=== PATIENT | male | born 1965 | race Two or more races ===

== ENCOUNTER → 2017-01-07 10:03 | Emergency (ER) | payer OTHER ==
[~2017-01-07 10:03] MED LIST: Iodixanol 320 (CONTRAST) 100 ML SDV IV ONE; Iohexol 300* (CONTRAST) 10 ML SDV IV ONE; Morphine INJ* 4 MG/ML 1 ML SYRINGE IV ONE; NS 0.9% 1000 ML* 1,000 ML IV ONE; Ondansetron INJ* 2 MG/ML VIAL IV ONE; Ondansetron ODT TAB* 4 MG PO ONE
[2017-01-07 11:14] LABS: Hematocrit 42 % (42-52); Hemoglobin 13.8 g/dl (14.0-18.0); Mean Corpuscular HGB Conc 33 g/dl (31-36); Mean Corpuscular Hemoglobin 27 pg (27-31); Mean Corpuscular Volume 83 fL (80-94); Mean Platelet Volume 9 um3 (7.4-10.4); Red Blood Count 5.05 10^6/ul (4.0-5.4); Red Cell Distribution Width 15 % (10.5-15); White Blood Count 7.7 10^3/ul (3.5-10.8)
[2017-01-07 11:35] LABS: Albumin 4.3 g/dL (3.2-5.2); BUN/Creatinine Ratio 19.3 (8-20); C Reactive Protein 5.37 mg/L (< 5.00); Calcium 9.5 mg/dL (8.6-10.3); EGFR African American 125.1 (>60); EGFR Non-African American 97.3 (>60); Globulin 3.3 g/dL (2-4); Potassium 4.1 mmol/L (3.5-5.0); Total Bilirubin 0.4 mg/dL (0.2-1.0); Total Protein 7.6 g/dL (6.4-8.9)
--- NOTE | 2017-01-07 13:46 | RAD ---
INDICATION: Breast cancer with metastasis. Abdominal pain. Vomiting. COMPARISON: Bone scan November 28, 2016; PET scan May 04, 2016; CTA chest September 30, 2015 TECHNIQUE: Axial source images were obtained from the hemidiaphragms to the symphysis pubis following administration of oral and intravenous contrast. 134 mL Visipaque 320 was utilized. Coronal and sagittal reconstructed images were acquired. Lung bases: There is subpleural flat in the left lung base with mildly nodular parenchymal parenchymal change. This likely related to scarring. This appears essentially unchanged. Liver: The liver is normal in size. There are no masses. There is no ductal dilatation. Gallbladder: There are no calcified gallstones. There is no evidence of wall thickening or pericholecystic fluid. Spleen: The spleen is normal in size. There are no masses. Pancreas: There is no focal pancreatic mass or ductal dilatation. Adrenal glands: There is no evidence of adrenal mass. Kidneys: The kidneys are normal in size and position. There are prompt nephrograms and there is prompt excretion bilaterally. There are no renal parenchymal masses. There is no evidence of nephrolithiasis. Adenopathy: There is no evidence of adenopathy by size criteria. Fluid collections: There are no free or localized fluid collections. Vessels:There are no significant atherosclerotic changes involving the aorta. There is no focal aneurysm. The iliac vessels are normal in caliber. The IVC appears normal. GI tract: There are no acute CT bowel findings. There is no obstruction. The stomach and small bowel appear normal. The lower GI tract is remarkable for scattered diverticula. There is no CT evidence of acute diverticulitis. Pelvic organs: The prostate and seminal vesicles appear normal Bladder: There are no bladder masses. Abdominal and pelvic soft tissues: There is a small fat-containing periumbilical hernia appearing unchanged. Osseous structures: There is a subtle right ninth rib lesion appearing more conspicuous on a bone scan which is a more sensitive means to evaluate for bony metastasis. There is left femoral rodding. Other: None IMPRESSION: NO ACUTE CT FINDINGS. NO MASS OR INFLAMMATORY CHANGE. NO BOWEL OBSTRUCTION.
[2017-01-07 14:22] LABS: Urine Bilirubin Negative (Negative); Urine Glucose Negative (Negative); Urine Nitrite Negative (Negative)
[2017-01-07 15:09] VITALS: BP 153/98
--- NOTE | 2017-01-08 23:02 | ED ---
Francisco Estevez SooYoung, scribed for Ulisses Shen MD on 01/07/17 at 1059 . Abdominal Pain/Male - HPI Summary HPI Summary: A 51 y/o M presents to ED with c/o diffuse epigastric abd pain ongoing for past two weeks. Pt saw Dr. Pineda, his PCP, today CATALYST UNIT OPERATOR who told him to go to the ED for further workup and U/S. Associated sx: vomiting. Denies diarrhea, fever. His last BM was this AM. No pert PMHx for cholelithiasis or pancreatitis. SHx: appy in 1987. PMHx: HTN, high cholesterol, DM, cardiac issues, multiple CA, has had radiation and chemo in the past. Pt sees Dr. Queen, oncologist. - History of Current Complaint Chief Complaint: EDAbdPain Stated Complaint: ABD PAIN Time Seen by Provider: 01/07/17 10:38 Hx Obtained From: Patient Onset/Duration: Lasting Weeks - two weeks, Still Present Timing: Intermittent Severity Currently: Moderate Pain Intensity: 7 Pain Scale Used: 0-10 Numeric Location: Diffuse, Epigastric Associated Signs And Symptoms: Positive: Vomiting. Negative: Fever, Diarrhea - Allergies/Home Medications Allergies/Adverse Reactions: Allergies Allergy/AdvReac Type Severity Reaction Status Date / Time seasonal Allergy Mild See Comment Uncoded 05/21/16 15:38 PMH/Surg Hx/FS Hx/Imm Hx Previously Healthy: No Endocrine/Hematology History: Reports: Hx Diabetes Denies: Hx Anticoagulant Therapy, Hx Thyroid Disease Cardiovascular History: Reports: Hx Angina, Hx Coronary Artery Disease, Hx Hypercholesterolemia, Hx Hypertension, Hx Myocardial Infarction, Hx Syncope, Other Cardiovascular Problems/Disorders - 2 cardiac stents Denies: Hx Pacemaker/ICD, Hx Valvular Heart Disease Respiratory History: Reports: Hx Asthma, Hx Pulmonary Embolism, Hx Seasonal Allergies, Hx Sleep Apnea - maybe Denies: Hx Chronic Obstructive Pulmonary Disease (COPD) GI History: Reports: Hx Gastroesophageal Reflux Disease, Other GI Disorders - umbilical hernia History: Denies: Hx Renal Disease Musculoskeletal History: Reports: Hx Arthritis - SPINE, Hx Back Problems, Hx Orthopedic Injury - (left) knee, (right) ring finger Denies: Hx Scoliosis Sensory History: Reports: Hx Contacts or Glasses Denies: Hx Cataracts, Hx Glaucoma, Hx Hearing Aid Opthamlomology History: Reports: Hx Contacts or Glasses Denies: Hx Cataracts, Hx Glaucoma Neurological History: Denies: Hx Dementia, Hx Headaches, Hx Seizures, Other Neuro Impairments/ Disorders Psychiatric History: Reports: Hx Anxiety - A/D OK ON MEDS, Hx Depression Denies: Hx Panic Disorder, Hx Substance Abuse - Cancer History Cancer Type, Location and Year: LT BREAST CANCER WITH LUMPECTOMY Hx Chemotherapy: Yes - 2013 Hx Radiation Therapy: Yes - 2013 - Surgical History Surgery Procedure, Year, and Place: 1988 APPY [facility], 2001 L KNEE RECONST [facility] , 2008 L BREAST CANCER LUMPECTOMY [facility] [place], 2007 2 CARDIAC STENTS, 2012 breast CA Hx Anesthesia Reactions: Yes - N/V Infectious Disease History: No Infectious Disease History: Denies: Hx Hepatitis, Hx Human Immunodeficiency Virus (HIV), Hx of Known/ Suspected MRSA, Hx Shingles, Hx Tuberculosis, Hx Known/Suspected VRE, Hx Known/ Suspected VRSA, History Other Infectious Disease, Traveled Outside the in Last 30 Days - Family History Known Family History: Positive: Cardiac Disease - Social History Occupation: Employed Part-time Lives: With Family Alcohol Use: None Hx Substance Use: No Substance Use Type: Reports: None Hx Tobacco Use: Yes Smoking Status (MU): Former Smoker Type: Cigarettes Amount Used/How Often: 2 PPD Length of Time of Smoking/Using Tobacco: on and off for 3 years Have You Smoked in the Last Year: No Review of Systems Negative: Fever, Chills Negative: Erythema Negative: Sore Throat Negative: Chest Pain Negative: Shortness Of Breath, Cough Positive: Abdominal Pain, Vomiting. Negative: Diarrhea, Nausea Negative: dysuria, hematuria Negative: Myalgia, Edema Negative: Rash Neurological: Other - neg: dizziness All Other Systems Reviewed And Are Negative: Yes Physical Exam - Summary Physical Exam Summary: Constitutional: Well-developed, Well-nourished, Alert. (-) Distressed Skin: Warm, Dry HENT: Normocephalic; Atraumatic Eyes: Conjunctiva normal Neck: Musculoskeletal ROM normal neck. (-) JVD, (-) Stridor, (-) Tracheal deviation Cardio: Rhythm regular, rate normal, Heart sounds normal; Intact distal pulses; The pedal pulses are 2+ and symmetric. Radial pulses are 2+ and symmetric. (-) Murmur Pulmonary/Chest wall: Effort normal. (-) Respiratory distress, (-) Wheezes, (-) Rales Abd: Soft, (-) Distension, LUQ AND LLQ TENDERNESS Musculoskeletal: (-) Edema Lymph: (-) Cervical adenopathy Neuro: Alert, Oriented x3 Psych: Mood and affect Normal Triage Information Reviewed: Yes Vital Signs On Initial Exam: Initial Vitals Temp Pulse Resp BP Pulse Ox 97.7 F 83 17 151/91 99 01/07/17 10:06 01/07/17 10:06 01/07/17 10:06 01/07/17 10:06 01/07/17 10:06 Vital Signs Reviewed: Yes - Preston Coma Scale Coma Scale Total: 15 Diagnostics - Vital Signs Vital Signs Temp Pulse Resp BP Pulse Ox 01/07/17 10:41 98.6 F 71 16 138/97 97 01/07/17 10:06 97.7 F 83 17 151/91 99 - Laboratory Lab Results: Lab Results 01/07/17 01/07/17 01/07/17 Range/Units 10:40 10:40 10:40 WBC 7.7 (3.5-10.8) 10^3/ul RBC 5.05 (4.0-5.4) 10^6/ul Hgb 13.8 L (14.0-18.0) g/dl Hct 42 (42-52) % MCV 83 (80-94) fL MCH 27 (27-31) pg MCHC 33 (31-36) g/dl RDW 15 (10.5-15) % Plt Count 207 (150-450) 10^3/ul MPV 9 (7.4-10.4) um3 Neut % (Auto) 68.8 (38-83) % Lymph % (Auto) 20.7 L (25-47) % Price % (Auto) 7.9 (1-9) % Eos % (Auto) 1.9 (0-6) % Baso % (Auto) 0.7 (0-2) % Absolute Neuts (auto) 5.3 (1.5-7.7) 10^3/ul Absolute Lymphs (auto) 1.6 (1.0-4.8) 10^3/ul Absolute Monos (auto) 0.6 (0-0.8) 10^3/ul Absolute Eos (auto) 0.1 (0-0.6) 10^3/ul Absolute Basos (auto) 0.1 (0-0.2) 10^3/ul Absolute Nucleated RBC 0.01 10^3/ul Nucleated RBC % 0.1 Sodium 135 (133-145) mmol/L Potassium 4.1 (3.5-5.0) mmol/L Chloride 103 (101-111) mmol/L Carbon Dioxide 24 (22-32) mmol/L Anion Gap 8 (2-11) mmol/L BUN 16 (6-24) mg/dL Creatinine 0.83 (0.67-1.17) mg/dL Est GFR ( Amer) 125.1 (>60) Est GFR (Non-Af Amer) 97.3 (>60) BUN/Creatinine Ratio 19.3 (8-20) Glucose 138 H (70-100) mg/dL Lactic Acid 2.5 H* (0.5-2.0) mmol/L Calcium 9.5 (8.6-10.3) mg/dL Total Bilirubin 0.40 (0.2-1.0) mg/dL AST 19 (13-39) U/L ALT 23 (7-52) U/L Alkaline Phosphatase 87 (34-104) U/L C-Reactive Protein 5.37 H (< 5.00) mg/L Total Protein 7.6 (6.4-8.9) g/dL Albumin 4.3 (3.2-5.2) g/dL Globulin 3.3 (2-4) g/dL Albumin/Globulin Ratio 1.3 (1-3) Lipase 31 (11.0-82.0) U/L CA 27-29 (3.5-38.6) U/mL Urine Color Urine Appearance Urine pH (5-9) Ur Specific [place] (1.010-1.030) Urine Protein (Negative) Urine Ketones (Negative) Urine Blood (Negative) Urine Nitrate (Negative) Urine Bilirubin (Negative) Urine Urobilinogen (Negative) Ur Leukocyte Esterase (Negative) Urine Glucose (Negative) 01/07/17 01/07/17 Range/Units 10:40 14:02 WBC (3.5-10.8) 10^3/ul RBC (4.0-5.4) 10^6/ul Hgb (14.0-18.0) g/dl Hct (42-52) % MCV (80-94) fL MCH (27-31) pg MCHC (31-36) g/dl RDW (10.5-15) % Plt Count (150-450) 10^3/ul MPV (7.4-10.4) um3 Neut % (Auto) (38-83) % Lymph % (Auto) (25-47) % Price % (Auto) (1-9) % Eos % (Auto) (0-6) % Baso % (Auto) (0-2) % Absolute Neuts (auto) (1.5-7.7) 10^3/ul Absolute Lymphs (auto) (1.0-4.8) 10^3/ul Absolute Monos (auto) (0-0.8) 10^3/ul Absolute Eos (auto) (0-0.6) 10^3/ul Absolute Basos (auto) (0-0.2) 10^3/ul Absolute Nucleated RBC 10^3/ul Nucleated RBC % Sodium (133-145) mmol/L Potassium (3.5-5.0) mmol/L Chloride (101-111) mmol/L Carbon Dioxide (22-32) mmol/L Anion Gap (2-11) mmol/L BUN (6-24) mg/dL Creatinine (0.67-1.17) mg/dL Est GFR ( Amer) (>60) Est GFR (Non-Af Amer) (>60) BUN/Creatinine Ratio (8-20) Glucose (70-100) mg/dL Lactic Acid (0.5-2.0) mmol/L Calcium (8.6-10.3) mg/dL Total Bilirubin (0.2-1.0) mg/dL AST (13-39) U/L ALT (7-52) U/L Alkaline Phosphatase (34-104) U/L C-Reactive Protein (< 5.00) mg/L Total Protein (6.4-8.9) g/dL Albumin (3.2-5.2) g/dL Globulin (2-4) g/dL Albumin/Globulin Ratio (1-3) Lipase (11.0-82.0) U/L CA 27-29 19.54 (3.5-38.6) U/mL Urine Color Straw Urine Appearance Clear Urine pH 6.0 (5-9) Ur Specific [place] 1.005 L (1.010-1.030) Urine Protein Negative (Negative) Urine Ketones Negative (Negative) Urine Blood Negative (Negative) Urine Nitrate Negative (Negative) Urine Bilirubin Negative (Negative) Urine Urobilinogen Negative (Negative) Ur Leukocyte Esterase Negative (Negative) Urine Glucose Negative (Negative) Result Diagrams: 01/07/17 10:40 01/07/17 10:40 Lab Statement: Any lab studies that have been ordered have been reviewed, and results considered in the medical decision making process. - CT A/P CT CT Interpretation: No Acute Changes - IMPRESSION: NO ACUTE CT FINDINGS. NO MASS OR INFLAMMATORY CHANGE. NO BOWEL OBSTRUCTION. [address] Interpretation Completed By: Radiologist Re-Evaluation - Re-Evaluation 1 Re-Evaluation Time: 14:26 Change: Improved Comment: Repeated abd exam, pt is experiencing mild LUQ. Tolerated oral contrast. Abdominal Pain Fem Course/Dx - Course Course Of Treatment: Pt is a 51 y/o M presenting with c/o diffuse epigastric abd pain ongoing for past two weeks. Pt saw Dr. Pineda, his PCP, today CATALYST UNIT OPERATOR who told him to go to the ED for further workup and U/S. Associated sx: vomiting. Denies diarrhea, fever. His last BM was this AM. No pert PMHx for cholelithiasis or pancreatitis. SHx: appy in 1987. PMHx: HTN, high cholesterol, DM, cardiac issues, multiple CA, has had radiation and chemo in the past. Pt sees Dr. Queen, oncologist. Pt given fluids, Zofran and Morphine in ED. Lab results show elevated glucose and CRP; lactic acid is 2.5. A/P CT revealed no acute findings. UA was nml except specific gravity of 1.005. Upon reeval, pt has mild LUQ, he tolerated oral contrast. Will D/C home with Zofran. - Diagnoses Differential Diagnosis/HQI/PQRI: Diverticulitis, Pancreatitis Provider Diagnoses: Vomiting Discharge - Discharge Plan Condition: Stable Disposition: HOME Prescriptions: Ondansetron ODT TAB* [Zofran 4 MG Odt TAB*] 4 mg PO Q8H PRN #8 tab.odt PRN Reason: Nausea/Vomiting Patient Education Materials: Acute Nausea and Vomiting (ED), Ondansetron (By mouth) Referrals: Anaya Pineda MD [Primary Care Provider] - () Sheng Queen MD [Medical Doctor] - 3 Days (Follow up in the next few days.) Karlos Bai MD [Medical Doctor] - (Follow up in the next few days.) Additional Instructions: Follow up with both Dr. Queen, oncology, and Dr. Bai, manufacturing plant technician, within the next few days. Return to the emergency department for changing or worsening or persistent symptoms. The documentation as recorded by the Francisco sanchez SooYoung accurately reflects the service I personally performed and the decisions made by me, Ulisses Shen MD.
== END | disposition home or self-care (01) ==
LOC: ED 10:03
DX: R11.10 Vomiting, unspecified (principal)
CPT/HCPCS: 36415; 74177; 80053; 81003; 83605; 83690; 85025; 86140; 86300; 99282; A9270-GY; J2270; J2405; Q9967

== ENCOUNTER 2018-03-03 06:25 | Day surgery (SDC) | payer OTHER ==
[~2018-03-03 06:25] MED LIST changes: +Buffered Lidocaine 0.9% SYRIN* 5 ML/SYR SYRINGE INTRADERM ONE; -Iodixanol 320 (CONTRAST) 100 ML SDV IV ONE; -Iohexol 300* (CONTRAST) 10 ML SDV IV ONE; -Morphine INJ* 4 MG/ML 1 ML SYRINGE IV ONE; -NS 0.9% 1000 ML* 1,000 ML IV ONE; -Ondansetron INJ* 2 MG/ML VIAL IV ONE; -Ondansetron ODT TAB* 4 MG PO ONE
[2018-03-03] MEDS ORDERED: ceFAZolin 2 GM PREMIX (*) 2 GM/50 ML BAG IVPB ONE (06:33)
[2018-03-03] MEDS ORDERED: fentaNYL* 50 MCG/ML 2 ML VIAL (100 MCG VIAL) ONE (07:16)
[2018-03-03] MEDS ORDERED: Lidocaine 1% INJ* 10 MG/ML 30 ML SDV ONE (07:16)
[2018-03-03] MEDS ORDERED: Midazolam* 1 MG/ML 5 ML VIAL (5 MG) ONE (07:16)
[2018-03-03] MEDS ORDERED: Ondansetron INJ* 2 MG/ML VIAL ONE (07:42)
[2018-03-03] MEDS ORDERED: Propofol* 10 MG/ML 20 ML BTL IV PUSH ONE (07:42)
[2018-03-03] MEDS ORDERED: Naloxone* 0.4 MG/ML 1 ML VIAL IV PRN (08:14)
--- NOTE | 2018-03-03 09:07 | BRIEFOPN ---
Brief Operative Note - Surgery Procedures: Procedures OPERATIVE REPORT PRE-OP: Metastatic breast cancer POST-OP: Same PROCEDURE: Insertion of 8F left chest wall Powerport SURGEON: MD Melia ANESTHESIA:Local with MAC Dr. Orta ASST:none IVF:min EBL:min SPECIMEN:none DRAIN: none WOUND CLASS: COMPLICATIONS: none TO PACU
[2018-03-03] MEDS ORDERED: oxyCODONE/Acetamin 5/325 MG* TAB PO PRN (09:08)
--- NOTE | 2018-03-03 09:44 | RAD ---
HISTORY: s/p port COMPARISONS: September 30, 2015 VIEWS: 1: frontal portable view of the chest at 8:55 AM FINDINGS: LINES AND TUBES: A left-sided chest port is noted with the tip overlying the superior vena cava. CARDIOMEDIASTINAL SILHOUETTE: The cardiomediastinal silhouette is normal for portable technique. PLEURA: The costophrenic angles are sharp. No pleural abnormalities are noted. There is no appreciable pneumothorax. LUNG PARENCHYMA: The lungs are clear. ABDOMEN: The upper abdomen is clear. There is no subphrenic gas. BONES AND SOFT TISSUES: No bone or soft tissue abnormalities are noted. IMPRESSION: LINES AND TUBES ABOVE. NO ACTIVE CARDIOPULMONARY DISEASE.
[2018-03-03 09:46] VITALS: BP 150/104
--- NOTE | 2018-03-03 09:48 | RAD ---
INDICATION: chest port placement COMPARISONS: None relevant TECHNIQUE: Fluoroscopy was provided for a vascular access procedure. Total fluoroscopy time is: 101 seconds FINDINGS: Spot images demonstrate a left-sided chest port from a subclavian approach with the tip overlying the superior vena cava. IMPRESSION: FLUOROSCOPY WAS PROVIDED FOR A VASCULAR ACCESS PROCEDURE CPT II Codes: G9500
--- NOTE | 2018-03-03 12:51 | OP ---
CC: [facility]; Dr. Sheng Queen OPERATIVE REPORT: DATE OF OPERATION: 03/03/18 DATE OF : 63 SURGEON: Jerad Cárdenas MD CURING SUPERVISOR: None. ANESTHESIOLOGIST: Dr. Orta. ANESTHESIA: Local with monitored anesthesia care. PRE-OP DIAGNOSIS: Metastatic breast cancer. POST-OP DIAGNOSIS: Metastatic breast cancer. OPERATIVE PROCEDURE: Insertion of an 8-S[place] left chest wall PowerPort. ESTIMATED BLOOD LOSS: Minimal. WOUND CLASSIFICATION: I. DRAINS: None. COMPLICATIONS: None. SPECIMENS: None. DESCRIPTION OF PROCEDURE: Written informed consent was obtained, the left chest was marked with inde lible ink and preoperative antibiotics were administered. The patient was taken to the operating juan m and placed in the supine position. Sequential compression devices and a warming blanket were applie d. The left and right chest and neck were prepped and draped in the usual sterile fashion. Time-out verification was completed. The patient was placed in Trendelenburg position and 1% lidocaine was used to infiltrate the chest wa ll, the left mid and infraclavicular area. Using an 18-gauge Cook needle, the catheter was passed on the clavicle and the subclavian vein was pu nctured on the first pass and the guidewire was inserted without difficulty and confirmed to be in th e superior vena cava on fluoroscopy. Next, additional lidocaine was infiltrated inferior to the puncture site and a transverse incision wa s made. A subcutaneous pocket was made inferior to this, large enough to permit placement of the por t. A catheter was then tunneled from the pocket to the puncture site and using the sheath, peel away sys tem, the catheter was inserted into the superior vena cava at the junction of the right atrium. The catheter was then cut to the appropriate length and attached to the port, which was placed in the sub cutaneous pocket. It flushed well and withdrew blood well and was flushed with heparin. The cathete r was secured to the underlying fascia within the pocket with 2 separate 3-0 Prolene sutures. Hemostasis was assured and the both incisions were closed with 3-0 and 4-0 Vicryl suture. Steri-Stri ps and a sterile occlusive Tegaderm dressing were applied. The patient tolerated the procedure well and was taken to the recovery room in stable condition. Postprocedural chest x-ray showed the catheter to be in good position without evidence of pneumothora x or other acute abnormality. [id number]/[facility] #: [id number]
== END 2018-03-03 10:10 | disposition home or self-care (01) ==
LOC: OR 06:25
PROVIDERS: ATTEND Surgery
DX: C79.51 Secondary malignant neoplasm of bone (principal); C50.929 Malignant neoplasm of unspecified site of unspecified male breast; Z87.891 Personal history of nicotine dependence; Z86.711 Personal history of pulmonary embolism; E11.9 Type 2 diabetes mellitus without complications; I25.10 Atherosclerotic heart disease of native coronary artery without angina pectoris; Z79.84 Long term (current) use of oral hypoglycemic drugs; I10 Essential (primary) hypertension; K21.9 Gastro-esophageal reflux disease without esophagitis; E78.5 Hyperlipidemia, unspecified
CPT/HCPCS: 71045; 76000; C1788; J0690; J1642; J2250; J2405; J2704; J3010

== ENCOUNTER 2018-04-09 11:46 | Emergency (ER) | payer OTHER ==
--- NOTE | 2018-04-09 13:21 | RAD ---
Indication: Chest pain. Coronary artery disease. History of breast carcinoma. Comparison: March 03, 2018 Technique: Upright AP 1310 hours Report: No focal pulmonary lesion, compelling alveolar consolidation, pleural effusion, pneumothorax. Negative for cardiomegaly. Unremarkable central pulmonary vasculature. Tip of LEFT chest port at level of superior vena cava RIGHT atrial junction without change. IMPRESSION: #. No evidence for acute intrathoracic disease.
[2018-04-09] MEDS ORDERED: NS 0.9% 1000 ML* 1,000 ML IV ONE (13:37)
[2018-04-09] MEDS ORDERED: Nitroglycerin TAB 0.4 MG* 0.4 MG TAB SL ONE (13:39)
[2018-04-09] MEDS ORDERED: Aspirin 81 mg CHEW TAB* 81 MG TAB.CHEW PO ONE (13:39)
[2018-04-09 13:42] LABS: ABS Basophils 0.1 10^3/ul (0-0.2); ABS Eosinophils 0.1 10^3/ul (0-0.6); ABS Lymphocytes 1.3 10^3/ul (1.0-4.8); ABS Monocytes 0.3 10^3/ul (0-0.8); ABS Neutrophils 2.7 10^3/ul (1.5-7.7); ABS Nucleated RBC 0 10^3/ul; Eosinophil % 2.3 % (0-6); Hematocrit 38 % (42-52); Hemoglobin 12.6 g/dl (14.0-18.0); Lymphocyte % 29.9 % (25-47); Mean Corpuscular HGB Conc 34 g/dl (31-36); Mean Corpuscular Hemoglobin 27 pg (27-31); Mean Corpuscular Volume 82 fL (80-94); Mean Platelet Volume 8.4 um3 (7.4-10.4); Nucleated Red Blood Cells % 0.2; Platelet Count 223 10^3/ul (150-450); Red Blood Count 4.61 10^6/ul (4.00-5.40); Red Cell Distribution Width 17 % (10.5-15); White Blood Count 4.5 10^3/ul (3.5-10.8)
[2018-04-09 13:49] LABS: INR 0.91 (0.77-1.02)
[2018-04-09] MEDS ORDERED: Morphine VIAL* 10 MG/ML 1 ML VIAL IV ONE (14:01)
[2018-04-09 14:09] LABS: EGFR Non-African American 106.9 (>60)
--- NOTE | 2018-04-09 14:31 | ED ---
HPI Chest Pain - HPI Summary HPI Summary: This patient is a 53 year old M presenting to [facility] accompanied by his and son with a chief complaint of central 7/10 chest pain and tightness for the past few days. PMHx PE (2009), breast CA metastatic to left femur, HLD, HTN, and DM. Pt endorses similar sx to last PE. Pt has been taking nitrostat which alleviated sx for a little while, but sx return fairly quickly. PMHx HTN, HLD, DM. deep breath mildly aggravates sx. Pt denies Rx blood thinners. Pt also endorses PMHx cardiac stenosis 50 and 60% blockage in 2 different branches observed in a cardiac catheterization less than a year ago. PMHx breast CA metastatic to left femur with 2x [address] surgeries[address] Dr[address] Queen is pts oncologist, and he is currently receiving chemotherapy, and has had radiation tx in the past. - History of Current Complaint Chief Complaint: EDChestPainROMI Time Seen by Provider: 04/09/18 12:49 Hx Obtained From: Patient Onset/Duration: Started Days Ago, Still Present Timing: Constant Initial Severity: Moderate Current Severity: Moderate Pain Intensity: 7 Pain Scale Used: 0-10 Numeric Chest Pain Location: Mid Sternal Chest Pain Radiates: No Character: Tightness Aggravating Factor(s): Deep Breaths Alleviating Factor(s): NTG 123 - a little alleviation for a small amount of time Associated Signs and Symptoms: Positive: Chest Pain. Negative: Shortness of Breath, Fever Related History: Similar Episode/Dx as: - PMHx 2010 PE. PMHx breast CA metastatic to femur. - Allergy/Home Medications Allergies/Adverse Reactions: Allergies Allergy/AdvReac Type Severity Reaction Status Date / Time seasonal Allergy Mild See Comment Uncoded 03/03/18 06:42 Home Medications: Home Medications Alogliptin (NF) [Nesina (NF)] 25 mg PO DAILY 04/09/18 [History Confirmed ] Beclomethasone 80 MCG MDI(NF) [Qvar 80 MCG MDI(NF)] 2 puff INH BID 04/09/18 [ History Confirmed 04/09/18] Bisacodyl [Laxative] 5 mg PO TID PRN 04/09/18 [History Confirmed 04/09/18] Diclofenac Sodium 75 mg PO BID 04/09/18 [History Confirmed 04/09/18] Empagliflozin [Jardiance] 10 mg PO DAILY 04/09/18 [History Confirmed 04/09/18] Glimepiride (NF) 2 mg PO DAILY 04/09/18 [History Confirmed 04/09/18] Hydromorphone HCl [Dilaudid] 2 mg PO QID 04/09/18 [History Confirmed 04/09/18] PARoxetine HCL TAB* [Paxil TAB*] 10 mg PO DAILY 04/09/18 [History Confirmed ] Zolpidem TAB* [Ambien TAB*] 10 mg PO BEDTIME PRN 04/09/18 [History Confirmed ] amLODIPine TAB* [Norvasc 5 mg TAB*] 5 mg PO DAILY 04/09/18 [History Confirmed ] PMH/Surg Hx/FS Hx/Imm Hx Endocrine/Hematology History: Reports: Hx Bone Marrow Disease - Dx 2014, CANCER , Hx Diabetes - Dx IN 2009 ON DAILY MEDS Denies: Hx Anticoagulant Therapy, Hx Thyroid Disease Cardiovascular History: Reports: Hx Angina, Hx Cardiomegaly, Hx Coronary Artery Disease, Hx Hypercholesterolemia, Hx Hypertension, Hx Myocardial Infarction, Hx Syncope, Other Cardiovascular Problems/Disorders - FOLLOWED BY DR CHOPRA Denies: Hx Pacemaker/ICD, Hx Valvular Heart Disease Respiratory History: Reports: Hx Asthma - USES DAILY INHALERS, Hx Pulmonary Embolism, Hx Seasonal Allergies, Hx Sleep Apnea - maybe Denies: Hx Chronic Obstructive Pulmonary Disease (COPD) GI History: Reports: Hx Gastroesophageal Reflux Disease - ON DAILY MEDS, Other GI Disorders - umbilical hernia History: Denies: Hx Renal Disease Musculoskeletal History: Reports: Hx Arthritis - SPINE, KNEES, LEFT HIP, Hx Back Problems, Hx Orthopedic Injury - (left) knee, (right) ring finger Denies: Hx Scoliosis Sensory History: Reports: Hx Contacts or Glasses - GLASSES Denies: Hx Cataracts, Hx Glaucoma, Hx Hearing Aid Opthamlomology History: Reports: Hx Contacts or Glasses - GLASSES Denies: Hx Cataracts, Hx Glaucoma EENT History: Denies: Hx Deafness Neurological History: Denies: Hx Dementia, Hx Headaches, Hx Seizures, Other Neuro Impairments/ Disorders Psychiatric History: Reports: Hx Anxiety, Hx Depression Denies: Hx Panic Disorder, Hx Substance Abuse - Cancer History Cancer Type, Location and Year: LT BREAST CANCER WITH LUMPECTOMY Hx Chemotherapy: Yes - 2013 Hx Radiation Therapy: Yes - 2013 - Surgical History Surgery Procedure, Year, and Place: 1988 APPY [facility]. 1999 L KNEE RECONST [facility]. 2008 L BREAST CANCER LUMPECTOM[place] [facility] [place]. 2009 &, 2008 & 2012 [address]. 2012 breast CA. 2016 LEFT FEMUR T BONE MARROW OUT, REPLACED WITH BON STRONG Hx Anesthesia Reactions: No - Immunization History Date of Tetanus Vaccine: <10 years Date of Influenza Vaccine: 2017 Immunizations Up to Date: Yes Infectious Disease History: No Infectious Disease History: Denies: Hx Hepatitis, Hx Human Immunodeficiency Virus (HIV), Hx of Known/ Suspected MRSA, Hx Shingles, Hx Tuberculosis, Hx Known/Suspected VRE, Hx Known/ Suspected VRSA, History Other Infectious Disease, Traveled Outside the in Last 30 Days - Family History Known Family History: Positive: Cardiac Disease - Social History Lives: With Family Alcohol Use: None Hx Substance Use: No Substance Use Type: Reports: None Hx Tobacco Use: Yes Smoking Status (MU): Former Smoker Type: Cigarettes Amount Used/How Often: 2 PPD 8 YRS Length of Time of Smoking/Using Tobacco: on and off for 3 years Have You Smoked in the Last Year: No Review of Systems Negative: Fever Positive: Chest Pain Negative: Shortness Of Breath Positive: no symptoms reported All Other Systems Reviewed And Are Negative: Yes Physical Exam - Summary Physical Exam Summary: GENERAL: Patient is a well-developed and nourished M who is lying comfortable in the stretcher. Patient is not in any acute respiratory distress. HEAD AND FACE: Normocephalic EYES: PERRLA, EOMI x 2. EARS: Hearing grossly intact. MOUTH: Oropharynx within normal limits. NECK: Supple, trachea is midline, no adenopathy, no JVD, no carotid bruit. CHEST: Symmetric, no tenderness at palpation LUNGS: Clear to auscultation bilaterally. No wheezing or crackles. CVS: Regular rate and rhythm, S1 and S2 present, no murmurs or gallops appreciated. ABDOMEN: Soft, non-tender. Bowel sounds are normal. No abdominal abnormal pulsations. EXTREMITIES: Full ROM in all major joints, no edema, no cyanosis or clubbing. NEURO: Alert and oriented x 3. No acute neurological deficits. Speech is normal and follows commands. SKIN: Dry and warm Triage Information Reviewed: Yes Vital Signs On Initial Exam: Initial Vitals Temp Pulse Resp BP Pulse Ox 97.8 F 81 16 134/73 98 04/09/18 11:49 04/09/18 11:49 04/09/18 11:49 04/09/18 11:49 04/09/18 11:49 Vital Signs Reviewed: Yes Diagnostics - Vital Signs Vital Signs Temp Pulse Resp BP Pulse Ox 04/09/18 14:01 22 87/57 04/09/18 14:00 12 04/09/18 13:32 21 119/69 04/09/18 13:01 25 114/76 04/09/18 13:00 20 04/09/18 12:31 76 21 115/64 99 04/09/18 11:49 97.8 F 81 16 134/73 98 - Laboratory Lab Results: Lab Results 04/09/18 04/09/18 04/09/18 Range/Units 13:31 13:31 13:31 WBC 4.5 (3.5-10.8) 10^3/ul RBC 4.61 (4.00-5.40) 10^6/ul Hgb 12.6 L (14.0-18.0) g/dl Hct 38 L (42-52) % MCV 82 (80-94) fL MCH 27 (27-31) pg MCHC 34 (31-36) g/dl RDW 17 H (10.5-15) % Plt Count 223 (150-450) 10^3/ul MPV 8.4 (7.4-10.4) um3 Neut % (Auto) 59.5 (38-83) % Lymph % (Auto) 29.9 (25-47) % [place] % (Auto) 7.1 H (0-7) % Eos % (Auto) 2.3 (0-6) % Baso % (Auto) 1.2 (0-2) % Absolute Neuts (auto) 2.7 (1.5-7.7) 10^3/ul Absolute Lymphs (auto) 1.3 (1.0-4.8) 10^3/ul Absolute Monos (auto) 0.3 (0-0.8) 10^3/ul Absolute Eos (auto) 0.1 (0-0.6) 10^3/ul Absolute Basos (auto) 0.1 (0-0.2) 10^3/ul Absolute Nucleated RBC 0 10^3/ul Nucleated RBC % 0.2 INR (Anticoag Therapy) 0.91 (0.77-1.02) APTT 28.6 (26.0-36.3) seconds Sodium 137 (135-145) mmol/L Potassium 4.3 (3.5-5.0) mmol/L Chloride 105 (101-111) mmol/L Carbon Dioxide 28 (22-32) mmol/L Anion Gap 4 (2-11) mmol/L BUN 13 (6-24) mg/dL Creatinine 0.76 (0.67-1.17) mg/dL Est GFR ( Amer) 129.3 (>60) Est GFR (Non-Af Amer) 106.9 (>60) BUN/Creatinine Ratio 17.1 (8-20) Glucose 155 H (70-100) mg/dL Lactic Acid (0.5-2.0) mmol/L Calcium 9.4 (8.6-10.3) mg/dL Total Bilirubin 0.40 (0.2-1.0) mg/dL AST 16 (13-39) U/L ALT 24 (7-52) U/L Alkaline Phosphatase 81 (34-104) U/L Troponin I 0.00 (<0.04) ng/mL Total Protein 6.8 (6.4-8.9) g/dL Albumin 4.1 (3.2-5.2) g/dL Globulin 2.7 (2-4) g/dL Albumin/Globulin Ratio 1.5 (1-3) 04/09/18 Range/Units 13:31 WBC (3.5-10.8) 10^3/ul RBC (4.00-5.40) 10^6/ul Hgb (14.0-18.0) g/dl Hct (42-52) % MCV (80-94) fL MCH (27-31) pg MCHC (31-36) g/dl RDW (10.5-15) % Plt Count (150-450) 10^3/ul MPV (7.4-10.4) um3 Neut % (Auto) (38-83) % Lymph % (Auto) (25-47) % [place] % (Auto) (0-7) % Eos % (Auto) (0-6) % Baso % (Auto) (0-2) % Absolute Neuts (auto) (1.5-7.7) 10^3/ul Absolute Lymphs (auto) (1.0-4.8) 10^3/ul Absolute Monos (auto) (0-0.8) 10^3/ul Absolute Eos (auto) (0-0.6) 10^3/ul Absolute Basos (auto) (0-0.2) 10^3/ul Absolute Nucleated RBC 10^3/ul Nucleated RBC % INR (Anticoag Therapy) (0.77-1.02) APTT (26.0-36.3) seconds Sodium (135-145) mmol/L Potassium (3.5-5.0) mmol/L Chloride (101-111) mmol/L Carbon Dioxide (22-32) mmol/L Anion Gap (2-11) mmol/L BUN (6-24) mg/dL Creatinine (0.67-1.17) mg/dL Est GFR ( Amer) (>60) Est GFR (Non-Af Amer) (>60) BUN/Creatinine Ratio (8-20) Glucose (70-100) mg/dL Lactic Acid 1.1 (0.5-2.0) mmol/L Calcium (8.6-10.3) mg/dL Total Bilirubin (0.2-1.0) mg/dL AST (13-39) U/L ALT (7-52) U/L Alkaline Phosphatase (34-104) U/L Troponin I (<0.04) ng/mL Total Protein (6.4-8.9) g/dL Albumin (3.2-5.2) g/dL Globulin (2-4) g/dL Albumin/Globulin Ratio (1-3) Result Diagrams: 04/09/18 13:31 04/09/18 13:31 Lab Statement: Any lab studies that have been ordered have been reviewed, and results considered in the medical decision making process. - Radiology CXR Xray Interpretation: No Acute Changes Radiology Interpretation Completed By: Radiologist - No evidence for acute intrathoracic disease. Dr. Richmond has reviewed this report. - CT CTA chest CT Interpretation: Positive (See Comments) CT Interpretation Completed By: Radiologist - 1. LEFT LOWER LOBE BASILAR SEGMENTAL ARTERY PULMONARY EMBOLUS. 2. MIXED LYTIC AND SCLEROTIC LESION WITHIN THE T4 VERTEBRAL BODY WITH SLIGHT INCREASED SCLEROSIS LIKELY REPRESENTING INTERVAL HEALING RESPONSE. Dr. Richmond has reviewed this report. - EKG 1154 Cardiac Rate: NL - 74 EKG Rhythm: Sinus Rhythm ST Segment: Normal Ectopy: None EKG Interpretation: nl axis, nl EKG. Re-Evaluation - Re-Evaluation First Eval Re-Evaluation Time: 15:58 Change: Unchanged Comment: Told pt about oncologist recommending d/c with rx blood thinners. Pt was very uncomfortable with this disposition, would much rather be admitted and monitored for at least a night. Chest Pain Course/Dx - Course Course Of Treatment: A 53-year-old M presents to the ED with a CC of 7/10 CP and tightness for the past few days. (-) SOB. 2009 PMHx PE. PMHx breast CA metastatic to left femur. Pt is currently on chemotherapy, and has received radiation therapy in the past. His oncologist is Dr. Rivers. A CXR was (-). An EKG reveals NSR at 74 BPM with a nl axis; nl EKG. A CTA chest revealed 1. LEFT LOWER LOBE BASILAR SEGMENTAL ARTERY PULMONARY EMBOLUS. 2. MIXED LYTIC AND SCLEROTIC LESION WITHIN THE T4 VERTEBRAL BODY WITH SLIGHT INCREASED SCLEROSIS LIKELY REPRESENTING INTERVAL HEALING RESPONSE. In the ED course, pt was given ASA, nl saline, morphine, and NTG. His lab results show low H&H and high glucose , but are otherwise normal. Pt was seen by [employer]POR[employer]IANCE MANAGER Radha Puentes in ED, is now comfortable with discharge. I discussed results with patient and he agrees with this plan. He is hemodynamically stable upon discharge. Strict return precautions given and he will otherwise follow up with his PCP and oncologist. - Diagnoses Provider Diagnoses: Pulmonary embolism - Provider Notifications Discussed Care Of Patient With: Rossy Ellis Time Discussed With Above Provider: 15:45 Instructed by Provider To: Other - Called in order to admit pt, but she recommends discharge with Rx blood thinners. After calling Dr. Ellis back, she agreed to see pt in the ED. Discharge - Sign-Out/Discharge Documenting (check all that apply): Patient Departure - discharge - Discharge Plan Condition: Stable Disposition: HOME Prescriptions: Rivaroxaban TAB(*) [Xarelto 15 mg(*)] 15 mg PO BID #42 tab Patient Education Materials: Pulmonary Embolism (ED), Blood Thinners (ED) Referrals: Anaya Pineda MD [Primary Care Provider] - Additional Instructions: Please return to the emergency department for any new or worsening symptoms. Follow up with your primary care physician in 1-3 days, and with your oncologist as scheduled. - Billing Disposition and Condition Condition: STABLE Disposition: Home - Attestation Statements Document Initiated by Rambo: Yes Documenting Scribe: Harjit Morel Provider For Whom Rambo is Documenting (Include Credential): Dr. Lucretia Richmond MD Scribe Attestation: Harjit Estevez scribed for Dr. Lucretia Richmond MD on 04/12/18 at 0739. Scribe Documentation Reviewed: Yes Provider Attestation: The documentation as recorded by the Harjit sanchez accurately reflects the service I personally performed and the decisions made by me, Dr. Lucretia Richmond MD
[2018-04-09] MEDS ORDERED: Iodixanol* (CONTRAST) 320 MG/ML 100 ML SDV IV ONE (14:48)
--- NOTE | 2018-04-09 15:43 | RAD ---
INDICATION: Chest pain and shortness of breath. COMPARISON: Comparison is made with a prior CT of the chest from February 13, 2018. TECHNIQUE: A CT angiogram of the chest was performed with intravenous following intravenous injection of 89 ml of Visipaque 320 nonionic contrast. Contiguous axial sections were obtained from the lung apices through the lung bases. Images were reconstructed in the coronal and sagittal planes. FINDINGS: PULMONARY ARTERIES: There is an intraluminal filling defect in a left lower lobe basilar segmental artery consistent with a pulmonary embolus. No other definite intraluminal filling defects are seen. HEART: The heart is within normal limits in size. No pericardial effusion is present. There are coronary calcifications present. THORACIC AORTA: The thoracic aorta is normal in caliber and demonstrates relatively homogeneous contrast opacification. There is mild calcific plaque present. LUNGS: There is mild dependent bilateral lower lobe infiltrates most consistent with atelectasis. No pleural effusion is present. MEDIASTINUM: No significant enlarged mediastinal or hilar lymph nodes are seen. ABDOMEN: No acute findings are seen on the visualized portion of the upper abdomen. BONES: There is a mixed lytic and sclerotic lesion present within the T4 vertebral body with decrease prominence of the lytic component possibly representing interval healing response. The results of this exam were called to the referring clinician. IMPRESSION: 1. LEFT LOWER LOBE BASILAR SEGMENTAL ARTERY PULMONARY EMBOLUS. 2. MIXED LYTIC AND SCLEROTIC LESION WITHIN THE T4 VERTEBRAL BODY WITH SLIGHT INCREASED SCLEROSIS LIKELY REPRESENTING INTERVAL HEALING RESPONSE.
[2018-04-09] MEDS ORDERED: diPHENhydraMINE IV* 25 MG in NS 0.9% 50 ML* 50 ML IVPB ONE (16:04)
[2018-04-09] MEDS ORDERED: Rivaroxaban TAB(*) 15 MG PO ONE ×2 (16:04→16:51)
--- NOTE | 2018-04-09 16:18 | PN ---
Progress Note - Progress Note Date of Service: 04/09/18 SOAP: Hem/Onc Consult Subjective: []Presented this morning with chest pain. Cardiac event ruled out with normal 12 lead EKG and negative troponin. CTA Chest obtained this afternoon revealed LLL PE. Currently on therapy for metastatic breast cancer, s/p C3 Taxol 03/31 History of PE in 2011 per his recall he required heparin gtt. and then transitioned to Lovenox and at one point had blood in urine with what appears to be coumadin as he questioned need for blood draws. Home Medications Medication Instructions Recorded Confirmed Type Albuterol HFA INHALER* [Ventolin 2 puff INH QID PRN 09/30/15 04/09/18 History HFA Inhaler*] Aspirin EC TAB* [Ecotrin EC Low 81 mg PO DAILY 09/30/15 04/09/18 History Dose 81 MG*] Atorvastatin* [Lipitor 40 MG*] 40 mg PO DAILY 09/30/15 04/09/18 History Bisacodyl EC TAB* [Dulcolax EC 20 mg PO DAILY PRN 09/30/15 04/09/18 History TAB*] Gabapentin CAP(*) [Neurontin 300 300 mg PO BID 09/30/15 04/09/18 History CAP(*)] Isosorbide Mononitrate (NF) 5 mg PO DAILY 09/30/15 04/09/18 History Lisinopril TAB* [Prinivil TAB 10 10 mg PO DAILY 09/30/15 04/09/18 History MG*] LoraTADine TAB(NF) [Claritin 10 MG 10 mg PO DAILY 09/30/15 04/09/18 History TAB(NF)] Montelukast Sodium TAB* [Singulair 10 mg PO QAM 09/30/15 04/09/18 History 5 mg TAB*] Nitroglycerin TAB 0.4 MG* 0.4 mg SL Q5M PRN 09/30/15 04/09/18 History Omeprazole CAP* [Prilosec CAP* 20 20 mg PO QAM 09/30/15 04/09/18 History MG] metFORMIN* [Glucophage 1000 MG TAB 1,000 mg PO BID 09/30/15 04/09/18 History *] Ezetimibe TAB* [Zetia TAB*] 10 mg PO DAILY 02/27/18 04/09/18 History Tramadol HCl [Tramadol HCl ER] 200 mg PO BID PRN 02/27/18 04/09/18 History Alogliptin (NF) [Nesina (NF)] 25 mg PO DAILY 04/09/18 04/09/18 History Beclomethasone 80 MCG MDI(NF) 2 puff INH BID 04/09/18 04/09/18 History [Qvar 80 MCG MDI(NF)] Bisacodyl [Laxative] 5 mg PO TID PRN 04/09/18 04/09/18 History Diclofenac Sodium 75 mg PO BID 04/09/18 04/09/18 History Empagliflozin [Jardiance] 10 mg PO DAILY 04/09/18 04/09/18 History Glimepiride (NF) 2 mg PO DAILY 04/09/18 04/09/18 History Hydromorphone HCl [Dilaudid] 2 mg PO QID 04/09/18 04/09/18 History PARoxetine HCL TAB* [Paxil TAB*] 10 mg PO DAILY 04/09/18 04/09/18 History Zolpidem TAB* [Ambien TAB*] 10 mg PO BEDTIME PRN 04/09/18 04/09/18 History amLODIPine TAB* [Norvasc 5 mg TAB*] 5 mg PO DAILY 04/09/18 04/09/18 History Objective: [] Vital Signs Temp Pulse Resp BP Pulse Ox 97.8 F 76 19 118/85 99 04/09/18 11:49 04/09/18 12:31 04/09/18 15:01 04/09/18 15:01 04/09/18 12:31 A&Ox3, in no acute distress Involved in teaching and moving independently in bed HRR, S1S2 LS clear bilat. without wheeze or rhonchi Laboratory Results - last 24 hr 04/09/18 04/09/18 04/09/18 13:31 13:31 13:31 WBC 4.5 RBC 4.61 Hgb 12.6 L Hct 38 L MCV 82 MCH 27 MCHC 34 RDW 17 H Plt Count 223 MPV 8.4 Neut % (Auto) 59.5 Lymph % (Auto) 29.9 [place] % (Auto) 7.1 H Eos % (Auto) 2.3 Baso % (Auto) 1.2 Absolute Neuts (auto) 2.7 Absolute Lymphs (auto) 1.3 Absolute Monos (auto) 0.3 Absolute Eos (auto) 0.1 Absolute Basos (auto) 0.1 Absolute Nucleated RBC 0 Nucleated RBC % 0.2 INR (Anticoag Therapy) 0.91 APTT 28.6 Sodium 137 Potassium 4.3 Chloride 105 Carbon Dioxide 28 Anion Gap 4 BUN 13 Creatinine 0.76 Est GFR ( Amer) 129.3 Est GFR (Non-Af Amer) 106.9 BUN/Creatinine Ratio 17.1 Glucose 155 H Lactic Acid Calcium 9.4 Total Bilirubin 0.40 AST 16 ALT 24 Alkaline Phosphatase 81 Troponin I 0.00 Total Protein 6.8 Albumin 4.1 Globulin 2.7 Albumin/Globulin Ratio 1.5 04/09/18 13:31 WBC RBC Hgb Hct MCV MCH MCHC RDW Plt Count MPV Neut % (Auto) Lymph % (Auto) [place] % (Auto) Eos % (Auto) Baso % (Auto) Absolute Neuts (auto) Absolute Lymphs (auto) Absolute Monos (auto) Absolute Eos (auto) Absolute Basos (auto) Absolute Nucleated RBC Nucleated RBC % INR (Anticoag Therapy) APTT Sodium Potassium Chloride Carbon Dioxide Anion Gap BUN Creatinine Est GFR ( Amer) Est GFR (Non-Af Amer) BUN/Creatinine Ratio Glucose Lactic Acid 1.1 Calcium Total Bilirubin AST ALT Alkaline Phosphatase Troponin I Total Protein Albumin Globulin Albumin/Globulin Ratio CTA CHEST Accession Number: [id number] CPT: 03459 INDICATION: Chest pain and shortness of breath. COMPARISON: Comparison is made with a prior CT of the chest from February 13, 2018. IMPRESSION: 1. LEFT LOWER LOBE BASILAR SEGMENTAL ARTERY PULMONARY EMBOLUS. 2. MIXED LYTIC AND SCLEROTIC LESION WITHIN THE T4 VERTEBRAL BODY WITH SLIGHT INCREASED SCLEROSIS LIKELY REPRESENTING INTERVAL HEALING RESPONSE. Dictated By: Mike Wade MD Dictated Date/Time: 04/09/18 3640 Assessment: []53 yo male with metastatic cancer currently treated with Taxol, s/p C3, presenting with acute chest pain and found to have a LLL PE remaining hemodynamically stable without hypoxia. Plan: []1. PE: start Xarelto 15 mg PO BID x21 days then 20 mg daily, likely lifelong anticoagulation as second event and metastatic cancer - reviewed instructions and bleeding precautions. FU Oncology, 04/[address] Garbo as previously scheduled Case discussed with attending, Dr. Ellis
[2018-04-09 16:59] VITALS: BP 112/70
== END 2018-04-09 17:00 | disposition home or self-care (01) ==
LOC: ED 11:46
DX: I26.99 Other pulmonary embolism without acute cor pulmonale (principal); R07.9 Chest pain, unspecified; Z87.891 Personal history of nicotine dependence
CPT/HCPCS: 36415; 71045; 71275; 80053; 83605; 84484; 85025; 85610; 85730; 93005; 96374; 99282; 99284; A9270-GY; J2270; Q9967

== ENCOUNTER 2018-07-07 13:14 | Emergency (ER) | payer OTHER ==
[2018-07-07] MEDS ORDERED: Orphenadrine Citrate IV* 30 MG/ML 2 ML VIAL IV ONE (13:34)
[2018-07-07] MEDS ORDERED: Dexamethasone IV* 4 MG/ML 1 ML (4 MG) IV SLOW PU ONE (13:34)
[2018-07-07] MEDS ORDERED: Morphine VIAL* 4 MG/ML VIAL (1 ml vial) IV ONE (13:34)
--- NOTE | 2018-07-07 13:37 | ED ---
Lower Extremity - HPI Summary HPI Summary: Patient is a 53 y/o M presenting to ED with complaints of pain at lower back, LLE, numbness and weakness at LLE. PMHx of breast cancer, which metastasized to bone cancer of ribs, LLE, and back. He also reports lumbar herniated discs. Patient spoke to Dr. Montgomery, his orthopedist, yesterday who recommended MRI. He also went to see PCP today who also advised patient to come to [facility] [place]. Fevers are denied. He is on chemo under Dr. Queen, patient reports last treatment was a week ago. He rates pain 10/10. On triage, nothing is noted to aggravate/alleviate Sx. Home medications and allergies are reviewed. - History of Current Complaint Chief Complaint: EDExtremityLower Stated Complaint: LEFT LEG NUMBNESS/PAIN Time Seen by Provider: 07/07/18 13:24 Hx Obtained From: Patient Mechanism Of Injury: Unknown Onset of Pain: Prior to Arrival Onset/Duration: Still Present Severity Currently: Severe - 10/10 Pain Intensity: 10 Pain Scale Used: 0-10 Numeric - 10/10 Timing: Constant Location: Is Discrete @ - LLE, lower back Associated Signs And Symptoms: Positive: Weakness, Other - pain, numbness. Negative: Fever Aggravating Factor(s): Nothing Alleviating Factor(s): Nothing - Allergies/Home Medications Allergies/Adverse Reactions: Allergies Allergy/AdvReac Type Severity Reaction Status Date / Time seasonal Allergy Mild See Comment Uncoded 07/07/18 13:16 Home Medications: Home Medications Hydromorphone HCl 2 mg PO BID 07/07/18 [History Confirmed 07/07/18] Hydromorphone HCl 6 mg PO BEDTIME 07/07/18 [History Confirmed 07/07/18] Isosorbide Dinitrate TAB* [Isordil TAB*] 30 mg PO DAILY 07/07/18 [History Confirmed 07/07/18] PARoxetine HCL TAB* [Paxil TAB*] 40 mg PO DAILY 07/07/18 [History Confirmed ] Rivaroxaban TAB(*) [Xarelto 20 mg] 20 mg PO DAILY 07/07/18 [History Confirmed ] PMH/Surg Hx/FS Hx/Imm Hx Endocrine/Hematology History: Reports: Hx Bone Marrow Disease - Dx 2014, CANCER , Hx Diabetes - Dx IN 2009 ON DAILY MEDS Denies: Hx Anticoagulant Therapy, Hx Thyroid Disease Cardiovascular History: Reports: Hx Angina, Hx Cardiomegaly, Hx Coronary Artery Disease, Hx Hypercholesterolemia, Hx Hypertension, Hx Myocardial Infarction, Hx Syncope, Other Cardiovascular Problems/Disorders - FOLLOWED BY DR CHOPRA Denies: Hx Pacemaker/ICD, Hx Valvular Heart Disease Respiratory History: Reports: Hx Asthma - USES DAILY INHALERS, Hx Pulmonary Embolism, Hx Seasonal Allergies, Hx Sleep Apnea - maybe Denies: Hx Chronic Obstructive Pulmonary Disease (COPD) GI History: Reports: Hx Gastroesophageal Reflux Disease - ON DAILY MEDS, Other GI Disorders - umbilical hernia History: Denies: Hx Renal Disease Musculoskeletal History: Reports: Hx Arthritis - SPINE, KNEES, LEFT HIP, Hx Back Problems, Hx Orthopedic Injury - (left) knee, (right) ring finger Denies: Hx Scoliosis Sensory History: Reports: Hx Contacts or Glasses - GLASSES Denies: Hx Cataracts, Hx Glaucoma, Hx Deafness, Hx Hearing Aid Opthamlomology History: Reports: Hx Contacts or Glasses - GLASSES Denies: Hx Cataracts, Hx Glaucoma Neurological History: Denies: Hx Dementia, Hx Headaches, Hx Seizures, Other Neuro Impairments/ Disorders Psychiatric History: Reports: Hx Anxiety, Hx Depression Denies: Hx Panic Disorder, Hx Substance Abuse - Cancer History Cancer Type, Location and Year: LT BREAST CANCER WITH LUMPECTOMY Hx Chemotherapy: Yes - 2012 Hx Radiation Therapy: Yes - 2013 - Surgical History Surgery Procedure, Year, and Place: 1988 APPY [facility]. 1999 L KNEE RECONST [facility]. 2008 L BREAST CANCER [place]UM[place]OM[place] [facility] [place]. 2008 &, 2007 & 2011 2 CARDIAC STENTS, [facility]. 2012 breast CA. 2016 LEFT FEMUR T BONE MARROW OUT, REPLACED WITH BON STRONG Hx Anesthesia Reactions: No - Immunization History Date of Tetanus Vaccine: <10 years Date of Influenza Vaccine: 2017 Infectious Disease History: No Infectious Disease History: Denies: Hx Hepatitis, Hx Human Immunodeficiency Virus (HIV), Hx of Known/ Suspected MRSA, Hx Shingles, Hx Tuberculosis, Hx Known/Suspected VRE, Hx Known/ Suspected VRSA, History Other Infectious Disease, Traveled Outside the [place] in Last 30 Days - Family History Known Family History: Positive: Cardiac Disease - Social History Alcohol Use: None Hx Substance Use: No Substance Use Type: Reports: None Hx Tobacco Use: Yes Smoking Status (MU): Former Smoker Type: Cigarettes Amount Used/How Often: 2 PPD 8 YRS Length of Time of Smoking/Using Tobacco: on and off for 3 years Have You Smoked in the Last Year: No Review of Systems Negative: Fever Positive: Other - POSITIVE - LLE AND LOWER BACK PAIN Positive: Weakness - LLE , Numbness - LLE All Other Systems Reviewed And Are Negative: Yes Physical Exam - Summary Physical Exam Summary: VITAL SIGNS: Reviewed. GENERAL: Patient is a well-developed and nourished male who is lying comfortable in the stretcher. Patient is not in any acute respiratory distress. HEAD AND FACE: No signs of trauma. No ecchymosis, hematomas or skull depressions. No sinus tenderness. EYES: PERRLA, EOMI x 2, No injected conjunctiva, no nystagmus. EARS: Hearing grossly intact. Ear canals and tympanic membranes are within normal limits. MOUTH: Oropharynx within normal limits. NECK: Supple, trachea is midline, no adenopathy, no JVD, no carotid bruit, no c- spine tenderness, neck with full ROM. CHEST: Symmetric, no tenderness at palpation LUNGS: Clear to auscultation bilaterally. No wheezing or crackles. CVS: Regular rate and rhythm, S1 and S2 present, no murmurs or gallops appreciated. ABDOMEN: Soft, non-tender. No signs of distention. No rebound no guarding, and no masses palpated. Bowel sounds are normal. EXTREMITIES: No edema, no cyanosis or clubbing. Decreased sensation of LLE, some weakness as well. Deep tendon reflex is normal. Good femoral and pedal pulses. NEURO: Alert and oriented x 3. No acute neurological deficits. Speech is normal and follows commands. GCS 15 SKIN: Dry and warm Triage Information Reviewed: Yes Vital Signs On Initial Exam: Initial Vitals Temp Pulse Resp BP Pulse Ox 97.8 F 81 20 124/72 100 07/07/18 13:16 07/07/18 13:16 07/07/18 13:16 07/07/18 13:16 07/07/18 13:16 Vital Signs Reviewed: Yes Diagnostics - Vital Signs Vital Signs Temp Pulse Resp BP Pulse Ox 07/07/18 13:16 97.8 F 81 20 124/72 100 - Laboratory Result Diagrams: 07/07/18 13:55 07/07/18 13:55 Lab Statement: Any lab studies that have been ordered have been reviewed, and results considered in the medical decision making process. - Radiology LUMBAR SPINE MRI Radiology Interpretation Completed By: Radiologist Summary of Radiographic Findings: LUMBAR SPINE MRI IMPRESSION: 1. There is loss of T1 and T2-weighted signal without abnormal enhancement at T4. corresponding to the sclerotic changes seen on the previous CT, possibly the site of a. healed prior bony metastasis. 2. There is degenerative disc disease involving the thoracic spine from T7 to T11 abutting. the ventral sac but not causing any severe central canal or neural foraminal stenosis. 3. There is lumbar intervertebral degenerative disc disease causing left worse than right. neural foraminal stenoses from L3 to S1. The most severe degenerative change is noted at. L5/S1. THIS REPORT WAS REVIEWED BY ED PHYSICIAN. THORACIC SPINE MRI Radiology Interpretation Completed By: Radiologist Summary of Radiographic Findings: THORACIC SPINE MRI IMPRESSION: 1. There is loss of T1 and T2-weighted signal without abnormal enhancement at T4. corresponding to the sclerotic changes seen on the previous CT, possibly the site of a. healed prior bony metastasis. 2. There is degenerative disc disease involving the thoracic spine from T7 to T11 abutting. the ventral sac but not causing any severe central canal or neural foraminal stenosis. 3. There is lumbar intervertebral degenerative disc disease causing left worse than right. neural foraminal stenoses from L3 to S1. The most severe degenerative change is noted at. L5/S1. THIS REPORT WAS REVIEWED BY ED PHYSICIAN. Re-Evaluation - Re-Evaluation First Eval Re-Evaluation Time: 17:50 Comment: Results of MRIs and consults wre discussed, patient will be discharged to home and follow up with PCP and oncology. Lower Extremity Course/Dx - Course Assessment/Plan: Patient is a 53 y/o M presenting to ED with complaints of pain at lower back, LLE, numbness and weakness at LLE. PMHx of breast cancer, which metastasized to bone cancer of ribs, LLE, and back. He also reports lumbar herniated discs. Patient spoke to Dr. Montgomery, his orthopedist, yesterday who recommended MRI. He also went to see PCP today who also advised patient to come to [facility] for [place]. Fevers are denied. He is on chemo under Dr. Queen, patient reports last treatment was a week ago. He rates pain 10/10. On triage, nothing is noted to aggravate/alleviate Sx. Home medications and allergies are reviewed. Blood work without any significant abnormality except for slight anemia, he assessed 21, glucose is 159. In the ED course the patient was given Decadron, Norflex, morphine for the pain. I did exam MRI of the T-spine and lumbar spine. I discussed the findings with and Dr. Finney and he recommends for the patient to be follow-up by oncology. Therefore discussed the case with Dr. Bee who recommends pain medications and anti-inflammatories discharged home and he will follow up with the patient tomorrow morning. I discussed the plan with the patient and he agrees. Patient is hemodynamically stable alert oriented 3. - Diagnoses Provider Diagnoses: Back pain, Metastasis - Physician Notifications Discussed Care Of Patient With: David Finney Time Discussed With Above Provider: 17:37 Instructed by Provider To: Other - Patient's case was discussed with Dr. Finney , Dr. Finney recommends follow up with oncologist. 1750 - Patient's case was discussed with Dr. Bee, recommends discharge to home and office follow up. Discharge - Sign-Out/Discharge Documenting (check all that apply): Patient Departure - discharge - Discharge Plan Condition: Stable Disposition: HOME Prescriptions: Cyclobenzaprine TAB* [Flexeril 10 MG TAB*] 10 mg PO TID PRN #12 tab PRN Reason: spasm methylPREDNISolone [Medrol Dosepak 4 MG*] 0 mg PO .SEE WALT INSTRUCTION #1 walt Patient Education Materials: Back Pain (ED), Degenerative Disc Disease (ED) Referrals: Anaya Pineda MD [Primary Care Provider] - 3 Days Sheng Queen MD [Medical Doctor] - 3 Days Additional Instructions: RETURN TO ED FOR ANY NEW OR WORSENING SYMPTOMS. FOLLOW UP WITH PRIMARY CARE PHYSICIAN AND DR. QUEEN WITHIN THREE DAYS. - Billing Disposition and Condition Condition: STABLE Disposition: Home - Attestation Statements Document Initiated by Scribe: Yes Documenting Scribe: ORION ARZATE Provider For Whom Letyibe is Documenting (Include Credential): AROLDO PEREZ MD Scribe Attestation: ORION Estevez , scribed for AROLDO PEREZ MD on 07/07/18 at 1828. Scribe Documentation Reviewed: Yes Provider Attestation: The documentation as recorded by the scribe, ORION ARZATE accurately reflects the service I personally performed and the decisions made by me, AROLDO PEREZ MD Status of Rambo Document: Viewed
[2018-07-07 14:27] LABS: ABS Basophils 0 10^3/ul (0-0.2); ABS Eosinophils 0.1 10^3/ul (0-0.6); ABS Lymphocytes 1.2 10^3/ul (1.0-4.8); ABS Monocytes 0.4 10^3/ul (0-0.8); ABS Neutrophils 1.8 10^3/ul (1.5-7.7); ABS Nucleated RBC 0 10^3/ul; Eosinophil % 2.4 %; Hematocrit 34 % (42-52); Lymphocyte % 34.8 %; Mean Corpuscular HGB Conc 33 g/dl (31-36); Mean Corpuscular Hemoglobin 27 pg (27-31); Mean Corpuscular Volume 83 fL (80-94); Mean Platelet Volume 8.3 fL (7.4-10.4); Nucleated Red Blood Cells % 0; Platelet Count 205 10^3/ul (150-450); Red Blood Count 4.07 10^6/ul (4.00-5.40); Red Cell Distribution Width 17 % (10.5-15); White Blood Count 3.6 10^3/ul (3.5-10.8)
[2018-07-07 14:40] LABS: EGFR Non-African American 102.2 (>60); Uric Acid 5.8 mg/dL (4.4-7.6)
[2018-07-07] MEDS ORDERED: Gadoteridol* (CONTRAST) 279.3 MG/ML 10 ML IV ONE (15:09)
[2018-07-07 18:29] VITALS: BP 103/69
== END 2018-07-07 18:31 | disposition home or self-care (01) ==
LOC: ED 13:14
DX: R53.1 Weakness (principal); Z87.891 Personal history of nicotine dependence; M54.9 Dorsalgia, unspecified; Z85.3 Personal history of malignant neoplasm of breast
CPT/HCPCS: 36415; 72157; 72158; 80053; 84550; 85025; 85652; 86140; 96374; 96375; 99283; A9579; J1100; J1642; J2270; J2360

== ENCOUNTER → 2018-11-05 21:43 | Emergency (ER) | payer OTHER ==
[~2018-11-05 21:43] MED LIST changes: -Buffered Lidocaine 0.9% SYRIN* 5 ML/SYR SYRINGE INTRADERM ONE; +HYDROmorphone INJ1* 1 MG/ML SYRINGE IV SLOW PU ONE; +Metoclopramide IV* 5 MG/ML 2 ML VIAL IV SLOW PU ONE; +fentaNYL* 50 MCG/ML 2 ML VIAL (100 MCG VIAL) IV SLOW PU ONE
--- NOTE | 2018-11-05 22:56 | ED ---
Lower Extremity - HPI Summary HPI Summary: The patient is a 53 year old male who is presenting to the [facility] with a chief complaint of left leg pain. 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 Currently, no chemotherapy is being given as per oncologist treatment plan. He has been taking tramadol (200mg) and hydromorphone at home (400mg). The pain is aggravated when he bears weight on his left leg (such as when walking). Pertinent surgical hx is described to be a left femur bone marrow removal and replacement with a "metal bar" which was 3 years ago. The patient states that he has no broken vertebrate and describes bilateral leg numbness that is chronic. No urinary symptoms reported. He is not eligible to receive cortisone shots in his back due to the his cancer. Patient also states that he has a "few disks pressing against nerves." The pain is rated to be 9/10 in severity. Symptoms are alleviated by nothing. - History of Current Complaint Chief Complaint: EDGeneral Stated Complaint: LEFT LEG PAIN PER PT Time Seen by Provider: 11/05/18 22:23 Hx Obtained From: Patient Onset/Duration: Still Present Severity Initially: Severe Severity Currently: Severe Pain Intensity: 9 Pain Scale Used: 0-10 Numeric Aggravating Factor(s): Standing, Weight Bearing Alleviating Factor(s): Nothing - Allergies/Home Medications Allergies/Adverse Reactions: Allergies Allergy/AdvReac Type Severity Reaction Status Date / Time seasonal Allergy Mild See Comment Uncoded 11/05/18 21:49 PMH/Surg Hx/FS Hx/Imm Hx Endocrine/Hematology History: Reports: Hx Bone Marrow Disease - Dx 2014, CANCER , Hx Diabetes - Dx IN 2009 ON DAILY MEDS Denies: Hx Anticoagulant Therapy, Hx Thyroid Disease Cardiovascular History: Reports: Hx Angina, Hx Cardiomegaly, Hx Coronary Artery Disease, Hx Deep Vein Thrombosis, Hx Hypercholesterolemia, Hx Hypertension, Hx Myocardial Infarction, Hx Syncope, Other Cardiovascular Problems/Disorders - ON XARELTO Denies: Hx Pacemaker/ICD, Hx Valvular Heart Disease Respiratory History: Reports: Hx Asthma - USES DAILY INHALERS, Hx Pulmonary Embolism, Hx Seasonal Allergies, Hx Sleep Apnea - maybe Denies: Hx Chronic Obstructive Pulmonary Disease (COPD) GI History: Reports: Hx Gastroesophageal Reflux Disease - ON DAILY MEDS, Hx Ulcer, Other GI Disorders - umbilical hernia History: Reports: Other Problems/Disorders - blood in urine Denies: Hx Renal Disease Musculoskeletal History: Reports: Hx Arthritis - SPINE, KNEES, LEFT HIP, Hx Back Problems, Hx Orthopedic Injury - (left) knee, (right) ring finger, Other Musculoskeletal History Denies: Hx Scoliosis Sensory History: Reports: Hx Contacts or Glasses - GLASSES Denies: Hx Cataracts, Hx Glaucoma, Hx Deafness, Hx Hearing Aid Opthamlomology History: Reports: Hx Contacts or Glasses - GLASSES Denies: Hx Cataracts, Hx Glaucoma Neurological History: Denies: Hx Dementia, Hx Headaches, Hx Seizures, Other Neuro Impairments/ Disorders Psychiatric History: Reports: Hx Anxiety, Hx Depression Denies: Hx Panic Disorder, Hx Substance Abuse - Cancer History Cancer Type, Location and Year: LT BREAST CANCER WITH LUMPECTOMY 2008 and 2011. Bone cancer 2013 Hx Chemotherapy: Yes Hx Radiation Therapy: Yes - Surgical History Surgery Procedure, Year, and Place: 1988 APPY [facility]. 1999 L KNEE RECONST [facility] x2. 2009 L BREAST CANCER LUMPECTOMY [facility]. 2008 &, 2007 & 2011 2 [address] ST[address], [facility]. 2012 breast CA. 2016 LEFT FEMUR T BONE MARROW OUT, REPLACED WITH BON STRONG. PORT PLACEMENT Hx Anesthesia Reactions: No - Immunization History Date of Tetanus Vaccine: <10 years Date of Influenza Vaccine: 2017 Infectious Disease History: No Infectious Disease History: Denies: Hx Hepatitis, Hx Human Immunodeficiency Virus (HIV), Hx of Known/ Suspected MRSA, Hx Shingles, Hx Tuberculosis, Hx Known/Suspected VRE, Hx Known/ Suspected VRSA, History Other Infectious Disease, Traveled Outside the [place] in Last 30 Days - Family History Known Family History: Positive: Cardiac Disease - Social History Lives: With Family Alcohol Use: None Hx Substance Use: No Substance Use Type: Reports: None Hx Tobacco Use: Yes Smoking Status (MU): Former Smoker Type: Cigarettes Amount Used/How Often: 2 PPD 8 YRS Length of Time of Smoking/Using Tobacco: on and off for 3 years Have You Smoked in the Last Year: No Review of Systems Constitutional: Negative Eyes: Negative ENT: Negative Cardiovascular: Negative Respiratory: Negative Gastrointestinal: Negative Positive: no symptoms reported Musculoskeletal: Other - Left Leg Pain; Back pain Skin: Negative Positive: Numbness - Leg numbness Psychological: Normal All Other Systems Reviewed And Are Negative: Yes Physical Exam - Summary Physical Exam Summary: VITAL SIGNS: Reviewed. GENERAL: Patient is a well-developed and nourished (MALE) who is lying comfortable in the stretcher. Patient is not in any acute respiratory distress. HEAD AND FACE: No signs of trauma. No ecchymosis, hematomas or skull depressions. No sinus tenderness. EYES: PERRLA, EOMI x 2, No injected conjunctiva, no nystagmus. EARS: Hearing grossly intact. Ear canals and tympanic membranes are within normal limits. MOUTH: Oropharynx within normal limits. NECK: Supple, trachea is midline, no adenopathy, no JVD, no carotid bruit, no c- spine tenderness, neck with full ROM. CHEST: Symmetric, no tenderness at palpation LUNGS: Clear to auscultation bilaterally. No wheezing or crackles. CVS: Regular rate and rhythm, S1 and S2 present, no murmurs or gallops appreciated. ABDOMEN: Soft, non-tender. No signs of distention. No rebound no guarding, and no masses palpated. Bowel sounds are normal. EXTREMITIES: FROM in all major joints, no edema, no cyanosis or clubbing. NEURO: Alert and oriented x 3. No acute neurological deficits. Speech is normal and follows commands. SKIN: Dry and warm Triage Information Reviewed: Yes Vital Signs On Initial Exam: Initial Vitals Temp Pulse Resp BP Pulse Ox 98.1 F 74 14 140/89 98 11/05/18 21:44 11/05/18 21:44 11/05/18 21:44 11/05/18 21:44 11/05/18 21:44 Vital Signs Reviewed: Yes Diagnostics - Vital Signs Vital Signs Temp Pulse Resp BP Pulse Ox 11/05/18 21:44 98.1 F 74 14 140/89 98 - Laboratory Lab Statement: Any lab studies that have been ordered have been reviewed, and results considered in the medical decision making process. - CT CT Thoracic Spine CT Interpretation Completed By: Radiologist Summary of CT Findings: CT Thoracic spine as per radiologist reveals 1. There is a mixed lytic and sclerotic lesion of the T4 vertebral body. extending into the right pedicle without CT evidence of significant central. canal encroachment. There is an additional sclerotic lesion in the right. posterior inferior aspect of the T12 vertebrae extending into the pedicle and. posterior elements, both consistent with metastatic disease. 2. Small left pleural effusion. ED Physician has reviewed this radiology report CT Lumbar Spine CT Interpretation Completed By: Radiologist Summary of CT Findings: CT Lumbar Spine as per radiologist reveals 1. Mixed lytic and sclerotic metastatic lesions in the sacrum superiorly at. midline and extending into the upper right sacral ala, anteriorly in the L2. vertebral body, and in the T12 vertebral body posteriorly and inferiorly. extending into the right pedicle and posterior elements. 2. No fracture. ED Physician has reviewed this radiology report CT Cervical Spine CT Interpretation Completed By: Radiologist Summary of CT Findings: CT Cervical Spine as per radiologist reveals 1. No lytic or sclerotic lesion in the cervical spine. No fracture or. subluxation. 2. Mixed lytic and sclerotic lesion medial head of the right clavicle. suspicious for metastatic disease. 3. Moderate degenerative change throughout the cervical spine including. moderate stenoses C3-C4 and C4-C5 central canal. No critical stenosis. ED Physician has reviewed this radiology report. Lower Extremity Course/Dx - Course Course Of Treatment: The patient is a 53 year old male who is presenting to the [facility] with a chief complaint of left leg pain. The patient also reports severe back pain. He is a cancer patient who has had bone cancer that has metastasized and currently reports of cancer in his spinal cord. He is seeing an oncologist but has not received chemotherapy recently. The patient has taken tramadol and hydromorphon at home and the dosage has been noted. The patient received a CT of his Lumbar, Thoracic and Cervical spine. We reviewed his CT radiology reports and discussed the findings with him. The patient will be discharged home as he is feeling better at this time. The dx will be back pain and metstatic CA. The patient is agreeable to this plan and will follow up with pain clinic as recommended. - Diagnoses Provider Diagnoses: Metastatic cancer, Back pain Discharge - Sign-Out/Discharge Documenting (check all that apply): Patient Departure - Discharge Home Patient Received Moderate/Deep Sedation with Procedure: No - Discharge Plan Condition: Stable Disposition: HOME Patient Education Materials: Back Pain (ED), Bone Metastasis (ED) Referrals: Anaya Pineda MD [Primary Care Provider] - Additional Instructions: RETURN TO THE EMERGENCY DEPARTMENT FOR CHANGING OR WORSENING SYMPTOMS. FOLLOW UP WITH YOUR PAIN CLINIC WITHIN ONE TO TWO DAYS - Billing Disposition and Condition Condition: STABLE Disposition: Home - Attestation Statements Document Initiated by Scribe: Yes Documenting Scribe: Gallito Cristiano Provider For Whom Scribe is Documenting (Include Credential): Dr. Gabby Castro Scribe Attestation: I, Gallito Quinonez, scribed for Dr. Gabby Castro on 11/06/18 at 0610. Scribe Documentation Reviewed: Yes Provider Attestation: The documentation as recorded by the Gallito sanchez accurately reflects the service I personally performed and the decisions made by me, Dr. Gabby Castro Status of Scribe Document: Viewed
[2018-11-06 00:53] VITALS: BP 122/90
== END | disposition home or self-care (01) ==
LOC: ED 21:43
DX: C41.2 Malignant neoplasm of vertebral column (principal); M54.9 Dorsalgia, unspecified; M89.9 Disorder of bone, unspecified; I11.9 Hypertensive heart disease without heart failure; I25.10 Atherosclerotic heart disease of native coronary artery without angina pectoris; I25.2 Old myocardial infarction; E11.9 Type 2 diabetes mellitus without complications; E78.00 Pure hypercholesterolemia, unspecified; R55 Syncope and collapse; J45.909 Unspecified asthma, uncomplicated; Z79.51 Long term (current) use of inhaled steroids; K21.9 Gastro-esophageal reflux disease without esophagitis; R31.9 Hematuria, unspecified; M46.90 Unspecified inflammatory spondylopathy, site unspecified; M13.862 Other specified arthritis, left knee; M13.861 Other specified arthritis, right knee; M13.852 Other specified arthritis, left hip; Z79.84 Long term (current) use of oral hypoglycemic drugs; Z86.718 Personal history of other venous thrombosis and embolism; Z86.711 Personal history of pulmonary embolism; Z87.891 Personal history of nicotine dependence; Z79.899 Other long term (current) drug therapy
CPT/HCPCS: 72125; 72128; 72131; 96374; 96375; 99283; J1170; J1642; J2765; J3010

== ENCOUNTER → 2018-12-31 11:06 | Day surgery (SDC) | payer OTHER ==
[~2018-12-31 11:06] MED LIST changes: -HYDROmorphone INJ1* 1 MG/ML SYRINGE IV SLOW PU ONE; -Metoclopramide IV* 5 MG/ML 2 ML VIAL IV SLOW PU ONE; +Ondansetron ODT TAB* 4 MG ONE; +Ondansetron ODT TAB* 4 MG SL ONE; -fentaNYL* 50 MCG/ML 2 ML VIAL (100 MCG VIAL) IV SLOW PU ONE
[2018-12-31 12:52] LABS: Body Fluid Source Pleural Fluid
--- NOTE | 2018-12-31 13:13 | PRO ---
THORACENTESIS REPORT: DATE OF PROCEDURE: 12/31/18 - [facility] PROCEDURE PERFORMED: Ultrasound-guided thoracentesis on the left side. PREPROCEDURAL DIAGNOSIS: Male breast cancer with pleural effusion. ANESTHESIA: Local anesthesia with 1% lidocaine. DESCRIPTION OF PROCEDURE: Informed consent was obtained from the patient prior to the procedure after all the risks and benefits were thoroughly explained. The patient was sitting up, leaning forward during the procedure. The patient has history of anxiety with procedures. He was given Zofran prior to the procedure. The patient had episode of vasovagal during the procedure with low blood pressure and heart rate. His O2 sats remained at around 99% throughout the procedure. A portable ultrasound was utilized at bedside to localize the fluid. All barrier techniques were followed. Area was sterilized with chlorhexidine. Sterile drape was placed in the area after appropriate ultrasound pictures were obtained. A [employer] 8[place] thoracentesis catheter was utilized for the procedure. 1% lidocaine was instilled into the pleural space, taking precautions. A #11 scalpel blade was used to make stab incision. [employer] thoracentesis catheter was subsequently inserted under manual suction. Catheter was left in place and needle was removed. 800 mL of dark yellow fluid was drained under manual suction. No further fluid was coming and catheter was removed. Sterile Band-Aid was applied in the area. The patient tolerated the procedure well. He was found to have good blood pressure around 130 systolic, heart rate into the 80s, and also oxygen saturation around 99% after the procedure. Postprocedural chest x-ray was ordered and was pending at the time of dictation. [id number]/[facility] #: [id number] ROLY
[2018-12-31 13:41] VITALS: BP 107/66
[2018-12-31 14:35] LABS: Body Fluid Mono 6 %; Body Fluid Other Cells 10
[2019-01-01 12:17] LABS: Lactate Dehydrogenase, BF 206 U/L
== END | disposition home or self-care (01) ==
LOC: OR 11:06
PROVIDERS: ATTEND Internal Medicine
DX: J91.0 Malignant pleural effusion (principal); Z85.3 Personal history of malignant neoplasm of breast; C79.51 Secondary malignant neoplasm of bone; K21.9 Gastro-esophageal reflux disease without esophagitis; I10 Essential (primary) hypertension; E11.9 Type 2 diabetes mellitus without complications; J45.909 Unspecified asthma, uncomplicated; I25.10 Atherosclerotic heart disease of native coronary artery without angina pectoris; Z79.84 Long term (current) use of oral hypoglycemic drugs; E78.5 Hyperlipidemia, unspecified; Z87.891 Personal history of nicotine dependence
CPT/HCPCS: 32554; 36415; 71045; 76604; 83615; 83986; 84157; 87040; 87205; 88112; 88305; 88341; 88342; 88360; 89051; A9270-GY

== ENCOUNTER → 2019-01-01 15:28 | Emergency (ER) | payer OTHER ==
[~2019-01-01 15:28] MED LIST changes: +Famotidine IV * 20 MG in NS 0.9% 100 ML* 100 ML IVPB ONE; +Iodixanol* (CONTRAST) 320 MG/ML 100 ML SDV IV ONE; +Lactated Ringers 1000 ML Bag* 1,000 ML IV SCH; +Ondansetron INJ* 2 MG/ML VIAL IV ONE; -Ondansetron ODT TAB* 4 MG ONE; -Ondansetron ODT TAB* 4 MG SL ONE; +fentaNYL* 50 MCG/ML 2 ML VIAL (100 MCG VIAL) IV SLOW PU ONE
[2019-01-01 17:08] LABS: ABS Eosinophils 0.1 10^3/ul (0-0.6); ABS Lymphocytes 1.8 10^3/ul (1.0-4.8); ABS Monocytes 0.5 10^3/ul (0-0.8); ABS Neutrophils 3.8 10^3/ul (1.5-7.7); Eosinophil % 2.4 %; Hematocrit 38 % (42-52); Hemoglobin 12.5 g/dL (14.0-18.0); Lymphocyte % 28.8 %; Mean Corpuscular HGB Conc 33 g/dL (31-36); Mean Corpuscular Hemoglobin 26 pg (27-31); Mean Corpuscular Volume 78 fL (80-94); Mean Platelet Volume 8.3 fL (7.4-10.4); Platelet Count 257 10^3/uL (150-450); Red Blood Count 4.82 10^6 /uL (4.18-5.48); Red Cell Distribution Width 16 % (10-15); White Blood Count 6.3 10^3/uL (3.5-10.8)
[2019-01-01 17:17] LABS: Activated Partial Thrombo Time 31.8 seconds (26.0-38.0); INR 0.95 (0.82-1.09)
--- NOTE | 2019-01-01 17:17 | ED ---
Back Pain - HPI Summary HPI Summary: Pt is a 53 y/o M presenting to the ED with a chief complaint of back pain. 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 He recently had 100ml of fluid drained from his L lung. During the procedure, he had a near syncopal experience d/t fear of needles, and diaphoresis. He has chronic SOB d/ t CA. He was also supposed to go to radiation yesterday but he felt horrible, so he cancelled it. The pain was originally just on his L side but now is spread up to his chest and around his heart. He has two cardiac stents, and he took one ntg which helped alleviate some of the pain. He also reports hx of PE 4-5 years ago. Currently, he is not on chemo d/t neuropathy in his LLE, and he has been off of chemo for 6 months. - History of Current Complaint Chief Complaint: EDShortnessOfBreath Stated Complaint: PROCEDURE YESTERDAY/BACK PAIN/CHEST PAIN PER PT Time Seen by Provider: 01/01/19 16:03 Hx Obtained From: Patient Onset/Duration: Gradual Onset, Lasting Hours, Still Present Onset/Duration: Started Hours Ago, Still Present Timing: Constant, Lasting Hours Severity Initially: Moderate Severity Currently: Severe Pain Intensity: 10 Pain Scale Used: 0-10 Numeric Character: Aching Aggravating Symptom(s): Movement Alleviating Symptom(s): Nothing - Allergies/Home Medications Allergies/Adverse Reactions: Allergies Allergy/AdvReac Type Severity Reaction Status Date / Time seasonal Allergy Mild See Comment Uncoded 01/01/19 16:19 PMH/Surg Hx/FS Hx/Imm Hx Previously Healthy: No Endocrine/Hematology History: Reports: Hx Bone Marrow Disease - Dx 2014, CANCER , Hx Diabetes - Dx IN 2009 ON DAILY MEDS Denies: Hx Anticoagulant Therapy, Hx Thyroid Disease Cardiovascular History: Reports: Hx Angina, Hx Cardiomegaly, Hx Coronary Artery Disease, Hx Deep Vein Thrombosis, Hx Hypercholesterolemia, Hx Hypertension, Hx Myocardial Infarction, Hx Syncope, Other Cardiovascular Problems/Disorders - ON XARELTO Denies: Hx Pacemaker/ICD, Hx Valvular Heart Disease Respiratory History: Reports: Hx Asthma - USES DAILY INHALERS, Hx Pulmonary Embolism, Hx Seasonal Allergies, Hx Sleep Apnea - maybe Denies: Hx Chronic Obstructive Pulmonary Disease (COPD) GI History: Reports: Hx Gastroesophageal Reflux Disease - ON DAILY MEDS, Hx Ulcer, Other GI Disorders - umbilical hernia History: Reports: Other Problems/Disorders - blood in urine Denies: Hx Renal Disease Musculoskeletal History: Reports: Hx Arthritis - SPINE, KNEES, LEFT HIP, Hx Back Problems, Hx Orthopedic Injury - (left) knee, (right) ring finger, Other Musculoskeletal History Denies: Hx Osteoporosis, Hx Scoliosis Sensory History: Reports: Hx Contacts or Glasses - GLASSES Denies: Hx Cataracts, Hx Glaucoma, Hx Deafness, Hx Hearing Aid Opthamlomology History: Reports: Hx Contacts or Glasses - GLASSES Denies: Hx Cataracts, Hx Glaucoma Neurological History: Denies: Hx Dementia, Hx Headaches, Hx Seizures, Other Neuro Impairments/ Disorders Psychiatric History: Reports: Hx Anxiety, Hx Depression Denies: Hx Panic Disorder, Hx Substance Abuse - Cancer History Cancer Type, Location and Year: LT BREAST CANCER WITH LUMPECTOMY 2008 and 2011. Bone cancer 2013 Hx Chemotherapy: Yes Hx Radiation Therapy: Yes - Surgical History Surgery Procedure, Year, and Place: 1988 APPY [facility]. 1999 L KNEE RECONST [facility] x2. 2009 L BREAST CANCER LUMPECTOMY [facility] [place]. 2009 &, 2008 & 2011 2 [address]ARDIAC [facility]. 2012 breast CA. 2016 LEFT FEMUR T BONE MARROW OUT, REPLACED WITH BON STRONG. PORT PLACEMENT Hx Anesthesia Reactions: No - Immunization History Date of Tetanus Vaccine: <10 years Date of Influenza Vaccine: 2017 Infectious Disease History: No Infectious Disease History: Denies: Hx Hepatitis, Hx Human Immunodeficiency Virus (HIV), Hx of Known/ Suspected MRSA, Hx Shingles, Hx Tuberculosis, Hx Known/Suspected VRE, Hx Known/ Suspected VRSA, History Other Infectious Disease, Traveled Outside the in Last 30 Days - Family History Known Family History: Positive: Cardiac Disease - Social History Alcohol Use: None Hx Substance Use: No Substance Use Type: Reports: None Hx Tobacco Use: Yes Smoking Status (MU): Former Smoker Type: Cigarettes Amount Used/How Often: 2 PPD 8 YRS Length of Time of Smoking/Using Tobacco: on and off for 3 years Have You Smoked in the Last Year: No Review of Systems Positive: Skin Diaphoresis Positive: Shortness Of Breath Positive: Myalgia - back pain Positive: Syncope - near All Other Systems Reviewed And Are Negative: Yes Physical Exam - Summary Physical Exam Summary: Constitutional: Well-developed, Well-nourished, Alert. (-) Distressed Skin: Warm, Dry HENT: Normocephalic; Atraumatic Eyes: Conjunctiva normal Neck: Musculoskeletal ROM normal neck. (-) JVD, (-) Stridor, (-) Tracheal deviation Cardio: Rhythm regular, rate normal, Heart sounds normal; Intact distal pulses; The pedal pulses are 2+ and symmetric. Radial pulses are 2+ and symmetric. Pulmonary/Chest wall: Effort normal. (-) Respiratory distress, (-) Wheezes, (-) Rales Abd: Soft, (-) tenderness, (-) Distension, (-) Guarding, (-) Rebound Musculoskeletal: (-) Edema. L-sided port present on chest wall. Single puncture site that is not actively draining on the L posterior lateral chest wall. Neuro: Alert, Oriented x3 Psych: Mood and affect Normal Triage Information Reviewed: Yes Vital Signs On Initial Exam: Initial Vitals Temp Pulse Resp BP Pulse Ox 98.6 F 80 16 106/68 100 01/01/19 15:38 01/01/19 15:38 01/01/19 15:38 01/01/19 15:38 01/01/19 15:38 Vital Signs Reviewed: Yes Diagnostics - Vital Signs Vital Signs Temp Pulse Resp BP Pulse Ox 01/01/19 16:47 16 01/01/19 15:38 98.6 F 80 16 106/68 100 - Laboratory Lab Results: Lab Results 01/01/19 Range/Units 16:46 WBC 6.3 (3.5-10.8) 10^3/uL RBC 4.82 (4.18-5.48) 10^6 /uL Hgb 12.5 L (14.0-18.0) g/dL Hct 38 L (42-52) % MCV 78 L (80-94) fL MCH 26 L (27-31) pg MCHC 33 (31-36) g/dL RDW 16 H (10-15) % Plt Count 257 (150-450) 10^3/uL MPV 8.3 (7.4-10.4) fL Neut % (Auto) 60.6 % Lymph % (Auto) 28.8 % Coffey % (Auto) 7.6 % Eos % (Auto) 2.4 % Baso % (Auto) 0.6 % Absolute Neuts (auto) 3.8 (1.5-7.7) 10^3/ul Absolute Lymphs (auto) 1.8 (1.0-4.8) 10^3/ul Absolute Monos (auto) 0.5 (0-0.8) 10^3/ul Absolute Eos (auto) 0.1 (0-0.6) 10^3/ul Absolute Basos (auto) 0.0 (0-0.2) 10^3/ul Absolute Nucleated RBC 0.0 10^3/ul Nucleated RBC % 0.0 Result Diagrams: 01/01/19 16:46 01/01/19 16:46 Lab Statement: Any lab studies that have been ordered have been reviewed, and results considered in the medical decision making process. - EKG 1637 Cardiac Rate: NL - 75bpm EKG Rhythm: Sinus Rhythm ST Segment: Normal Ectopy: None Summary of EKG Findings: EKG at 1637 shows NSR at 75bpm with borderline low voltage, nonspecific T waves, and Q waves in lead III, no STEMI. No prior for comparison. Back Pain Course/Dx - Course Course Of Treatment: Pt is a 53 y/o M presenting to the ED with a chief complaint of back pain. 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 He recently had 100ml of fluid drained from his L lung. He has chronic SOB and he had diaphoresis during the procedure. The pain was originally just on his L side but now is spread up to his chest and around his heart. On exam, the pt has L-sided port present on chest wall. Single puncture site that is not actively draining on the L posterior lateral chest wall. EKG at 1637 shows NSR at 75bpm with borderline low voltage, nonspecific T waves, and Q waves in lead III, no STEMI. No prior for comparison. Pt's lactic acid is 2.2. Pt will be signed out to Dr. Castro at shift change pending CT of the chest. - Diagnoses Provider Diagnoses: Chest pain, Bone metastasis Discharge - Sign-Out/Discharge Documenting (check all that apply): Sign-Out Patient Signing out patient TO: Gabby Castro - Discharge Plan Condition: Stable Referrals: Anaya Pineda MD [Primary Care Provider] - - Attestation Statements Document Initiated by Scribe: Yes Documenting Scribe: Gloria Núñez Provider For Whom Rambo is Documenting (Include Credential): Alpesh Irby MD. Scribe Attestation: Gloria Estevez, scribed for Alpesh Irby MD. on 01/01/19 at 1856. Status of Scribe Document: Ready
[2019-01-01 17:27] LABS: Albumin 3.9 g/dL (3.2-5.2); Albumin/Globulin Ratio 1.1 (1-3); BUN/Creatinine Ratio 17.4 (8-20); Calcium 9.4 mg/dL (8.6-10.3); EGFR African American 112.1 (>60); EGFR Non-African American 92.7 (>60); Globulin 3.4 g/dL (2-4); Magnesium 1.9 mg/dL (1.9-2.7); Total Bilirubin 0.3 mg/dL (0.2-1.0); Total Protein 7.3 g/dL (6.4-8.9)
--- NOTE | 2019-01-01 19:27 | ED ---
Progress - Progress Note Progress Note: Pt is a sign out from Dr. Irby to Dr. Castro at shift change on 01/01/19 at 1900 pending a CTA chest. - Results/Orders Results/Orders: A CTA of the chest finds: Findings indicate progression of metastatic disease, including bilateral lung parenchymal nodules, prominent mediastinal and hilar lymph nodes, as well as sclerotic osseous lesions, as above. Bilateral pleural effusions, larger on the left, with associated compressive atelectasis. ED Physician has reviewed this report. Re-Evaluation - Re-Evaluation First Eval Re-Evaluation Time: 21:34 Change: Improved Comment: Spoke to the pt about his pain which is secondary to his metastatic breast CA. The pt will be discharged home with pain medications. Course/Dx - Course Course Of Treatment: The pt is a sign out from Dr. Irby to Dr. Castro on shift change 01/01/19 at 1900. He has abnormal lab findings in Lactic acid of 2.2 and alkaline phosphate. A CTA of the chest finds: Findings indicate progression of metastatic disease, including bilateral lung parenchymal nodules , prominent mediastinal and hilar lymph nodes, as well as sclerotic osseous lesions, as above. Bilateral pleural effusions, larger on the left, with associated compressive atelectasis. The pain the pt is suffering is secondary to his metastatic disease and will be discharged home with a Dx of low back pain and type 1 and 2 metastatic breast CA. The pt will be given a perscription for a Fentanyl Patch and will be instructed to follow up with his PCP in 2-3 days and to return to the ED with any new or worsening symptoms. - Diagnoses Provider Diagnoses: Low back pain, Metastasis from breast cancer Discharge - Sign-Out/Discharge Documenting (check all that apply): Patient Departure, Receiving Sign-Out Receiving patient FROM: Alpesh Irby Patient Received Moderate/Deep Sedation with Procedure: No - Discharge Plan Condition: Stable Disposition: HOME Prescriptions: fentaNYL PATCH 25 MCG/HR* [Duragesic PATCH 25 Mcg/Hr*] 25 mcg TRANSDERM Q72H # 10 patch MDD 1 patch every 3 days Patient Education Materials: Back Pain (ED) Referrals: Anaya Pineda MD [Primary Care Provider] - 2 Days Additional Instructions: Please follow up with your primary care physician in 2-3 days and return to the emergency department for any new or worsening symptoms. You have been prescribed a Fentanyl patch. - Attestation Statements Document Initiated by Scribe: Yes Documenting Scribe: Isidro Chappell Provider For Whom Scribe is Documenting (Include Credential): Gabby Castro MD Scribe Attestation: Isidro Estevez, scribed for Gabby Castro MD on 01/01/19 at 2223. Status of Scribe Document: Ready
[2019-01-01 21:45] VITALS: BP 127/85
== END | disposition home or self-care (01) ==
LOC: ED 15:28
DX: R07.89 Other chest pain (principal); C79.51 Secondary malignant neoplasm of bone; C78.00 Secondary malignant neoplasm of unspecified lung; Z85.3 Personal history of malignant neoplasm of breast; J90 Pleural effusion, not elsewhere classified; R61 Generalized hyperhidrosis; R55 Syncope and collapse; E11.40 Type 2 diabetes mellitus with diabetic neuropathy, unspecified; Z79.84 Long term (current) use of oral hypoglycemic drugs; Z86.711 Personal history of pulmonary embolism; Z79.01 Long term (current) use of anticoagulants; J45.909 Unspecified asthma, uncomplicated; K21.9 Gastro-esophageal reflux disease without esophagitis; Z95.5 Presence of coronary angioplasty implant and graft; Z87.891 Personal history of nicotine dependence
CPT/HCPCS: 36415; 71275; 80053; 83605; 83735; 83880; 84484; 85025; 85610; 85730; 93005; 96361; 96374; 96375; 99282; J2405; J3010; Q9967

== ENCOUNTER → 2019-01-14 05:47 | Day surgery (SDC) | payer OTHER ==
[~2019-01-14 05:47] MED LIST changes: +Buffered Lidocaine 1% SYRIN* 1 ML/SYRINGE INTRADERM ONE; +DiMENhydriNATE IV* 50 MG/ML VIAL IV PUSH PRN; +EPHEDrine (Pressors)* 50 MG/ML VIAL ONE; -Famotidine IV * 20 MG in NS 0.9% 100 ML* 100 ML IVPB ONE; -Iodixanol* (CONTRAST) 320 MG/ML 100 ML SDV IV ONE; +Midazolam* 1 MG/ML 5 ML VIAL (5 MG) ONE; +Naloxone* 0.4 MG/ML 1 ML VIAL IV PRN; -Ondansetron INJ* 2 MG/ML VIAL IV ONE; +Ondansetron INJ* 2 MG/ML VIAL IV PRN; +Ondansetron INJ* 2 MG/ML VIAL ONE; +Phenylephrine 40 MCG/ML SYRINGE ONE; +Propofol* 10 MG/ML 20 ML BTL ONE; +ceFAZolin 2 GM in NS PREMIX(*) 2 GM/100 ML BAG IVPB ONE; -fentaNYL* 50 MCG/ML 2 ML VIAL (100 MCG VIAL) IV SLOW PU ONE; +fentaNYL* 50 MCG/ML 2 ML VIAL (100 MCG VIAL) ONE; +oxyCODONE/Acetamin 5/325 MG* TAB ONE
--- NOTE | 2019-01-14 08:13 | BRIEFOPN ---
Brief Operative Note - Surgery Procedures: Procedures Pre-OP Diagnoses: recurrent pL pleural effusion Post-op Diagnosis: same Procedure: insertion of L pleurx catheter Surgeon: Rachel Asst: none Anethesia: local You العراقي EBL: minimal IVF: crystalloid Specimen: none Drains: pleurx catheter
--- NOTE | 2019-01-14 09:33 | OP ---
OPERATIVE REPORT: DATE OF OPERATION: 01/14/19 DATE OF : 63 SURGEON: Aftab Ramos MD CIGARETTE VENDOR: None. ANESTHESIA: Local, MAC. ANESTHESIOLOGIST: Dr. Orta. PRE-OP DIAGNOSIS: Recurrent left pleural effusion, malignant. POST-OP DIAGNOSIS: Recurrent left pleural effusion, malignant. OPERATIVE PROCEDURE: Insertion of left PleurX catheter. SPECIMENS: None. ESTIMATED BLOOD LOSS: Minimal. FLUIDS: Minimal crystalloid fluid given. DRAINS: PleurX catheter inserted in exit site in the left flank. INDICATIONS: The patient was identified in the preoperative area. He had undergone x-rays. This x- ray was reviewed and showed left pleural effusion as we expected. He was marked in appropriate rubi r and then brought to the OR and placed in the operating table in supine position. Preoperative anti biotics given. Sequential device was placed on bilateral lower extremities. Gentle sedation was give n and the patient was repositioned in a soft right lateral decubitus. The left back and flank were p repped and draped in a standard surgical fashion. Timeout was performed. Injection of lidocaine along the proposed tunnel site as well as the injection site overlying the 7th rib was carried out. Needle was inserted into the left chest and serous fluid was obtained. Guidew che was then placed through this needle and we dilated the subcutaneous tissue and muscle to enter th e left chest with the given dilators. Next, the tubing was tunneled from a separate stab incision anteriorly placed into the split away cat heter, which was then removed and the initial incision was closed with 4-0 Monocryl. The PleurX proprietary tube suction device was then placed on the tubing and we had a significant scotty unt of air at first and then fluid, reached an equilibrium and then we removed it. Dressing was appl ied. The patient was woken up and transferred to the PACU in stable condition. [id number]/[facility] #: [id number]
[2019-01-14] MEDS: oxyCODONE/Acetamin 5/325 MG* TAB PO PRN ×2 (10:25→10:59)
[2019-01-14 11:00] VITALS: BP 117/80
== END | disposition home or self-care (01) ==
LOC: OR 05:47
PROVIDERS: ATTEND Surgery
DX: C34.92 Malignant neoplasm of unspecified part of left bronchus or lung (principal); J91.0 Malignant pleural effusion; Z87.891 Personal history of nicotine dependence; Z79.01 Long term (current) use of anticoagulants; I10 Essential (primary) hypertension; E11.9 Type 2 diabetes mellitus without complications; Z79.84 Long term (current) use of oral hypoglycemic drugs; F32.9 Major depressive disorder, single episode, unspecified; J45.909 Unspecified asthma, uncomplicated
CPT/HCPCS: 71045; A9270-GY; J0690; J2250; J2405; J2704; J3010

== ENCOUNTER 2019-01-18 18:53 | Observation (INO) | payer OTHER ==
--- NOTE | 2019-01-18 19:42 | ED ---
Complex/Multi-Sys Presentation - HPI Summary HPI Summary: This patient is a 53 year old M presenting to ED with a chief complaint of left chest wall pain since 01/16/19. The pain is described as a knife and is worse when lying down, radiating to the back. Patient has a history of breast cancer twice, bone cancer, and lung cancer. Patient had his first session of chemotherapy on 01/15/19 and radiation therapy last week. The next chemotherapy session is in three weeks. He states he caught a cold from family members. Patient has a chest tube placed to drain fluid from the lungs, but he states the fluid is backing up to the lungs. The fluid has been drained twice already, with the last drainage on 01/15/19. Patient reports taking hydromorphone, Dayquil , and Nyquil today. He is usually able to walk around, but has been unable to the last few days due to tiredness. The patient rates the pain 9/10 in severity. Symptoms aggravated by lying flat. Symptoms alleviated by nothing. Patient reports chills, myalgia, arthralgia, weakness, tiredness. He reports eating and drinking okay. - History Of Current Complaint Chief Complaint: EDChestWallPain Hx Obtained From: Patient Onset/Duration: Lasting Days - 01/16/19, Still Present Timing: Constant, Days Severity Currently: Severe Severity Initially: Severe Location: Pain At: - Left chest wall, Radiates To: - Back Character: Sharp - Knife-like Aggravating Factor(s): Lying flat Alleviating Factor(s): Nothing Associated Signs And Symptoms: Positive: Weakness, Chest Pain, Back Pain, Other - Chills, myalgia, arthralgia, tiredness. - Allergies/Home Medications Allergies/Adverse Reactions: Allergies Allergy/AdvReac Type Severity Reaction Status Date / Time No Known Drug Allergies Allergy See Comment Verified 01/18/19 22:42 seasonal Allergy Mild See Comment Uncoded 01/14/19 06:33 PMH/Surg Hx/FS Hx/Imm Hx Previously Healthy: No Endocrine/Hematology History: Reports: Hx Bone Marrow Disease - Dx 2014, CANCER , Hx Diabetes - Dx IN 2009 ON DAILY MEDS Denies: Hx Anticoagulant Therapy, Hx Thyroid Disease Cardiovascular History: Reports: Hx Angina, Hx Cardiomegaly, Hx Coronary Artery Disease, Hx Deep Vein Thrombosis, Hx Hypercholesterolemia, Hx Hypertension, Hx Myocardial Infarction, Hx Syncope, Other Cardiovascular Problems/Disorders - ON XARELTO Denies: Hx Pacemaker/ICD, Hx Valvular Heart Disease Respiratory History: Reports: Hx Asthma - USES DAILY INHALERS, Hx Pulmonary Embolism, Hx Seasonal Allergies, Hx Sleep Apnea - maybe Denies: Hx Chronic Obstructive Pulmonary Disease (COPD) GI History: Reports: Hx Gastroesophageal Reflux Disease - ON DAILY MEDS, Hx Ulcer, Other GI Disorders - umbilical hernia History: Reports: Other Problems/Disorders - blood in urine Denies: Hx Renal Disease Musculoskeletal History: Reports: Hx Arthritis - SPINE, KNEES, LEFT HIP, Hx Back Problems, Hx Orthopedic Injury - (left) knee, (right) ring finger, Other Musculoskeletal History Denies: Hx Osteoporosis, Hx Scoliosis Sensory History: Reports: Hx Contacts or Glasses - GLASSES Denies: Hx Cataracts, Hx Glaucoma, Hx Deafness, Hx Hearing Aid Opthamlomology History: Reports: Hx Contacts or Glasses - GLASSES Denies: Hx Cataracts, Hx Glaucoma Neurological History: Denies: Hx Dementia, Hx Headaches, Hx Seizures, Other Neuro Impairments/ Disorders Psychiatric History: Reports: Hx Anxiety, Hx Depression Denies: Hx Panic Disorder, Hx Substance Abuse - Cancer History Cancer Type, Location and Year: LT BREAST CANCER WITH LUMPECTOMY 2008 and 2011. Bone cancer 2013 Hx Chemotherapy: Yes Hx Radiation Therapy: Yes - Surgical History Surgery Procedure, Year, and Place: 1988 APPY [facility]. 1999 L KNEE RECONST [facility] x2. 2009 L BREAST CANCER LUMPECTOMY [facility]. 2009 &, 2008 & 2012 2 CARDIAC STENTS, [facility] [place]. 2012 breast CA. 2016 LEFT FEMUR T BONE MARROW OUT, REPLACED WITH BON STRONG. PORT PLACEMENT Hx Anesthesia Reactions: No - Immunization History Date of Tetanus Vaccine: <10 years Date of Influenza Vaccine: 2017 Infectious Disease History: No Infectious Disease History: Denies: Hx Hepatitis, Hx Human Immunodeficiency Virus (HIV), Hx of Known/ Suspected MRSA, Hx Shingles, Hx Tuberculosis, Hx Known/Suspected VRE, Hx Known/ Suspected VRSA, History Other Infectious Disease, Traveled Outside the [place] in Last 30 Days - Family History Known Family History: Positive: Cardiac Disease - Social History Alcohol Use: None Hx Substance Use: No Substance Use Type: Reports: None Hx Tobacco Use: Yes Smoking Status (MU): Former Smoker Type: Cigarettes Amount Used/How Often: 2 PPD 8 YRS Length of Time of Smoking/Using Tobacco: on and off for 3 years Have You Smoked in the Last Year: No Review of Systems Positive: Chills Positive: Chest Pain - Left chest wall Musculoskeletal: Other - Back pain Positive: Arthralgia, Myalgia Neurological: Other - Tiredness Positive: Weakness All Other Systems Reviewed And Are Negative: Yes Physical Exam - Summary Physical Exam Summary: Appearance: Well appearing, no pain distress Skin: warm, dry, reflects adequate perfusion Head/face: normal Eyes: EOMI, YANELIS ENT: dry mucus membranes Neck: supple, non-tender Respiratory: CTA, breath sounds present Cardiovascular: RRR, pulses symmetrical Abdomen: non-tender, soft Musculoskeletal: tenderness over left chest with chest tube that has no drainage around insertion site, scars over left breast area Neuro: normal, sensory motor intact, A&Ox3 Triage Information Reviewed: Yes Vital Signs On Initial Exam: Initial Vitals Temp Pulse Resp BP Pulse Ox 99.2 F 99 18 116/67 94 01/18/19 18:54 01/18/19 18:54 01/18/19 18:54 01/18/19 18:54 01/18/19 18:54 Vital Signs Reviewed: Yes Diagnostics - Vital Signs Vital Signs Temp Pulse Resp BP Pulse Ox 01/18/19 18:54 99.2 F 99 18 116/67 94 - Laboratory Result Diagrams: 01/18/19 19:59 01/18/19 19:59 Lab Statement: Any lab studies that have been ordered have been reviewed, and results considered in the medical decision making process. - Radiology CXR Radiology Interpretation Completed By: ED Physician Summary of Radiographic Findings: Left pleural effusion. Pending official radiology report. - EKG 1958 Cardiac Rate: NL - 80 BPM EKG Rhythm: Sinus Rhythm ST Segment: Normal Ectopy: None Summary of EKG Findings: NSR at 80 BPM, no acute changes. Re-Evaluation - Re-Evaluation First Eval Re-Evaluation Time: 21:30 Change: Worse Comment: Discussed results with patient. Patient was vomiting in the room. I discussed the patient case with Dr. Long, and the patient will be admitted to [facility]. The patient understands and agrees with this plan. Complex Multi-Symp Course/Dx Course Of Treatment: This patient is a 53 year old M presenting to ED with a chief complaint of left chest wall pain and tiredness since 01/16/19. In the ED course, patient received fluids, Dilaudid, Zofran, Vancomycin, and Zosyn. EKG at 1959 revealed NSR at 80 BPM, no acute changes. Blood work obtained. CXR revealed left pleural effusion, pending official radiology report. In the ED, patient began vomiting. I discussed the patient case with Dr. Long, hospitalist, who accepted the patient for admission to [facility]. Therefore, the patient will be admitted with dx of pleural effusion, PNA, sepsis, and breast cancer with metastasis to the bones and lungs. Patient understands and agrees with this plan. - Diagnoses Differential Diagnoses/HQI/PQRI: Metabolic Abnormality, Sepsis, Other - pneumonia/sepsis Provider Diagnoses: Pleural effusion, PNA (pneumonia), Sepsis, Metastasis from breast cancer - Physician Notifications Discussed Care Of Patient With: Malinda Long Time Discussed With Above Provider: 21:24 Instructed by Provider To: Admit As Inpatient - Discussed patient case with Dr. Long, hospitalist, who accepted the patient for admission to [facility]. - Critical Care Time Critical Care Time: 30-74 min - 30 minutes Discharge - Sign-Out/Discharge Documenting (check all that apply): Patient Departure - Admit Patient Received Moderate/Deep Sedation with Procedure: No - Discharge Plan Condition: Fair Disposition: ADMITTED TO [facility] - Billing Disposition and Condition Condition: FAIR Disposition: Admitted to [facility] - Attestation Statements Document Initiated by Rambo: Yes Documenting Scribe: Qasim Gao Provider For Whom Rambo is Documenting (Include Credential): Raman Lobo MD Scribe Attestation: I, Qasim Gao, scribed for Raman Lobo MD on 01/18/19 at 2328. Scribe Documentation Reviewed: Yes Provider Attestation: The documentation as recorded by the Qasim sanchez accurately reflects the service I personally performed and the decisions made by me, Raman Lobo MD Status of Scribe Document: Viewed
[2019-01-18] MEDS ORDERED: Ondansetron INJ* 2 MG/ML VIAL IV ONE ×2 (19:47→21:20)
[2019-01-18] MEDS ORDERED: HYDROmorphone INJ1* 1 MG/ML SYRINGE IV SLOW PU ONE (19:47)
[2019-01-18] MEDS ORDERED: NS 0.9% 1000 ML** 1,000 ML IV SCH ×2 (20:00→22:30)
[2019-01-18] MEDS ORDERED: Piperacillin/Tazobac ADVAN(*) 3.375 GM in NS 0.9% 100 ML* 100 ML IVPB ONE (20:04)
[2019-01-18] MEDS ORDERED: NS 0.9% 1000 ML** 1,000 ML IV.FLUID IV ONE (20:04)
[2019-01-18] MEDS ORDERED: Vancomycin(*) 1,500 MG in NS 0.9% 250 ML* 250 ML IVPB ONE (20:05)
[2019-01-18 20:09] LABS: ABS Basophils 0.1 10^3/ul (0-0.2); ABS Eosinophils 0.3 10^3/ul (0-0.6); ABS Monocytes 0.7 10^3/ul (0-0.8); ABS Neutrophils 5.7 10^3/ul (1.5-7.7); Eosinophil % 4.3 %; Hematocrit 41 % (42-52); Hemoglobin 13.2 g/dL (14.0-18.0); Lymphocyte % 12.5 %; Mean Corpuscular HGB Conc 33 g/dL (31-36); Mean Corpuscular Hemoglobin 26 pg (27-31); Mean Corpuscular Volume 79 fL (80-94); Mean Platelet Volume 8.2 fL (7.4-10.4); Platelet Count 259 10^3/uL (150-450); Red Blood Count 5.16 10^6 /uL (4.18-5.48); Red Cell Distribution Width 16 % (10-15); White Blood Count 7.8 10^3/uL (3.5-10.8)
[2019-01-18 20:16] LABS: Activated Partial Thrombo Time 45.6 seconds (26.0-38.0); INR 1.77 (0.82-1.09)
[2019-01-18 20:23] LABS: Albumin/Globulin Ratio 1.1 (1-3); BUN/Creatinine Ratio 15.2 (8-20); Calcium 9.4 mg/dL (8.6-10.3); EGFR African American 82.7 (>60); EGFR Non-African American 68.3 (>60); Globulin 3.5 g/dL (2-4); Potassium 4.4 mmol/L (3.5-5.0); Total Bilirubin 0.4 mg/dL (0.2-1.0); Total Protein 7.5 g/dL (6.4-8.9)
[2019-01-18] MEDS ORDERED: NS 0.9% 250 ML* 250 ML ONE (20:47)
[2019-01-18] MEDS ORDERED: Al Hydrox/Mg Hydrox/Simet LIQ* 30 ML UDC PO PRN (22:25)
[2019-01-18] MEDS ORDERED: Albuterol HFA INHALER* 8 gm MDI INH PRN (22:26)
[2019-01-18] MEDS ORDERED: Nitroglycerin TAB 0.4 MG* 0.4 MG TAB SL PRN (22:26)
[2019-01-18] MEDS: HYDROmorphone TAB* 2 MG PO SCH (22:45)
[2019-01-18] MEDS ORDERED: Dextrose 50% Syringe 50 ML* 25 GM/50 ML SYRINGE IV PUSH PRN (23:04)
[2019-01-18 23:41] LABS: TSH (Thyroid Stimulating Horm) 3.59 mcIU/mL (0.34-5.60)
[2019-01-19] MEDS ORDERED: Bisacodyl SUPP* 10 MG SUPP PR ONE (00:27)
[2019-01-19] MEDS ORDERED: Bisacodyl SUPP* 10 MG SUPP ONE (00:32)
[2019-01-19] MEDS: Zolpidem TAB* 10 MG PO PRN ×2 (00:36→20:15)
[2019-01-19] MEDS: oxyCODONE/Acetamin 5/325 MG* TAB PO PRN ×5 (00:36→21:42)
[2019-01-19] MEDS ORDERED: traMADol TAB* 50 MG PO PRN (01:00)
--- NOTE | 2019-01-19 01:22 | HP ---
ADDENDUM NOW INCLUDED ON THIS REPORT CC: Dr. Queen * HISTORY AND PHYSICAL: DATE OF ADMISSION: 01/18/19 TIME OF ADMISSION: 10:30 p.m. CHIEF COMPLAINT: Weakness. HISTORY OF PRESENT ILLNESS: This is a 53-year-old man with a history of recurrent metastatic breast cancer, currently on chemotherapy (he is not sure of which type of chemo he is receiving), who presents to the emergency department with weakness and fatigue since yesterday. He also notes some chest pain; however, this pain has been ongoing for a month and he recently got a PleurX catheter placed by Dr. Ramos on 01/14/19, which he is tolerating well. He does not have any shortness of breath. He just started a fentanyl patch yesterday and feels high and I believe this is the main reason he came into the emergency department. He generally does not feel like himself, complains of myalgias and "my head is not right." He has had some nausea and vomiting in the emergency department, but had not experienced that prior to arriving. He denies fevers at home. He last received chemo 3 days ago. He gets it q.4 weeks. He also complains of some indigestion. He has not had diarrhea, cough, headache, but he does admit to sore throat. He denies dysuria or flank pain. In the emergency department, he was noted to be hypotensive when his blood was being drawn and felt like he was going to pass out and vomited. His blood pressure quickly normalized. There was concern for sepsis giving elevated lactate in the emergency department and an episode of hypotension, so we were asked to consider admission. PAST MEDICAL HISTORY: Recurrent metastatic breast cancer with malignant pleural effusion and bony metastasis, currently receiving chemotherapy with Dr. Queen. Sleep apnea, depression, hypertension, coronary artery disease with stents, hyperlipidemia, asthma, GERD, and PE. PAST SURGICAL HISTORY: Breast lumpectomies, knee reconstruction. ALLERGIES: No known drug allergies. SOCIAL HISTORY: He lives with his spouse. His son is here in the emergency department with him. 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 He is a former smoker and quit in the 90s. He does not use alcohol or illicit drugs. REVIEW OF SYSTEMS: As per the HPI. The remainder of 14-point review of systems is negative. PHYSICAL EXAMINATION GENERAL: Drowsy, but nontoxic-appearing man, who is in no distress. He is pleasantly conversive and visiting with his son. He answers all my questions appropriately. VITAL SIGNS: Temperature 99.2, heart rate 83, respiratory rate 18, pulse ox 94 % on room air, blood pressure 118/73. HEENT: Pupils equal, round, and reactive to light. Oral mucosa is very dry. NECK: No JVP or adenopathy. CHEST: A port is on his left chest wall. He is in regular rate and rhythm. A PleurX catheter is on the posterior left chest, not attached to a bag. The site has no drainage or erythema surrounding it. His lungs are clear bilaterally in all lung guerra. ABDOMEN: Obese with an umbilical hernia. It is soft, nontender, nondistended with no CVA tenderness. EXTREMITIES: The left leg is slightly bigger than the right leg with no edema, rashes, or ulcers. NEUROLOGIC: He is oriented x3. His cognition is intact. He follows all commands. His strength is 5/5 in all extremities. DIAGNOSTIC STUDIES/LAB DATA: White blood cells 7.8, hemoglobin 13.2, platelets 259, no bands. INR 1.77. Sodium 136, potassium 4.4, chloride 98. BUN 17, creatinine 1.1. Lactic acid 3.0. Troponin 0.00. Chest x-ray shows no infiltrates or effusions; however, the left costophrenic angle is not captured by this chest x-ray. He has cardiomegaly. EKG: Normal sinus rhythm, normal axis, normal intervals. No ST or T wave changes. ASSESSMENT AND PLAN: This is a 53-year-old man with history of metastatic breast cancer that is currently undergoing chemotherapy and a recent PleurX catheter, who presents to the emergency department with generalized weakness and fatigue. 1. Weakness and fatigue. This may be related to the recent addition of fentanyl patch yesterday; however, we will admit him for observation due to rule out an infectious etiology given his recent chemotherapy and 2 portals of entry with a port and PleurX catheter though neither of them appear overtly infected and he has no current localizing sources. Blood cultures have been sent in the ER. I have requested a urinalysis. His chest x-ray shows no pneumonia and no effusion. His pleural fluid was last cultured on 12/31/18 and had no growth. Based on my read on the x-ray, I do not think there is much pleural fluid to culture, but should he show more signs of infection, we could consider culturing the pleural fluid. I will ask for the fentanyl patch to be removed and revert back to his prior pain regimen of tramadol and Dilaudid. This may also be a reflection of his recent chemotherapy infusion. Unfortunately, he does not know which chemotherapy he received and I do not have access to the chemo records. 2. Hypotension. The description in the ED sounds more like a vasovagal episode as it happened when his blood was being taken and he became nauseous, diaphoretic and vomited and his blood pressure resolved without intervention. However, we do need to rule out an infectious cause of his hypotension. He has received 3 L of IV fluid in the emergency department and I will continue maintenance of fluid as he does appear very dry. 3. Metastatic breast cancer, on chemotherapy. I will consult Dr. Queen. 4. Malignant pleural effusion with a PleurX catheter in place. 5. Depression. Continue paroxetine. 6. History of pulmonary embolism. Continue Xarelto. 7. Other chronic medical conditions. Continue his aspirin and statin for coronary artery disease. Continue with inhalers for asthma. Hold metformin for diabetes and add fingersticks. 8. Disposition: Admit for observation with an Oncology consult. ADDENDUM: After my original dictation, Mr. Pineda's nurse from the ED raised concern for some seizure-like activity when Mr. Pineda's blood pressure dropped earlier this evening. He explained that he did not lose consciousness, but had an episode of unresponsiveness where his eyes were twitching and he came out of it quickly. This does broaden the differential, especially in the setting of metastatic breast cancer and this would also explain some of his drowsiness and his elevated lactic acid. I would like to add a CT with contrast for this morning to evaluate for brain mets. [id number]/[facility] #: [id number]/[facility] #: [id number] [facility]
[2019-01-19 06:17] LABS: ABS Basophils 0.1 10^3/ul (0-0.2); ABS Eosinophils 0.3 10^3/ul (0-0.6); ABS Lymphocytes 1.1 10^3/ul (1.0-4.8); ABS Monocytes 0.8 10^3/ul (0-0.8); ABS Neutrophils 4.9 10^3/ul (1.5-7.7); Eosinophil % 4.7 %; Hematocrit 36 % (42-52); Hemoglobin 11.7 g/dL (14.0-18.0); Lymphocyte % 15.7 %; Mean Corpuscular HGB Conc 33 g/dL (31-36); Mean Corpuscular Hemoglobin 26 pg (27-31); Mean Corpuscular Volume 79 fL (80-94); Mean Platelet Volume 8.2 fL (7.4-10.4); Nucleated Red Blood Cells % 0.1; Platelet Count 209 10^3/uL (150-450); Red Blood Count 4.56 10^6 /uL (4.18-5.48); Red Cell Distribution Width 16 % (10-15); White Blood Count 7.2 10^3/uL (3.5-10.8)
[2019-01-19 06:43] LABS: BUN/Creatinine Ratio 16.5 (8-20); Calcium 8.4 mg/dL (8.6-10.3); EGFR African American 123.7 (>60); EGFR Non-African American 102.2 (>60); Potassium 3.9 mmol/L (3.5-5.0)
--- NOTE | 2019-01-19 07:28 | HP ---
HISTORY AND PHYSICAL: DATE OF ADMISSION: ADDENDUM: After my original dictation, Mr. Pineda's nurse from the ED raised concern for some seizure-like activity when Mr. Pineda's blood pressure dropped earlier this evening. He explained that he did not lose consciousness, but had an episode of unresponsiveness where his eyes were twitching and he came out of it quickly. This does broaden the differential, especially in the setting of metastatic breast cancer and this would also explain some of his drowsiness and his elevated lactic acid. I would like to add a CT with contrast for this morning to evaluate for brain mets. [id number]/[facility] #: [id number] MTDD
[2019-01-19] MEDS: Insulin LISPRO* 1 UNITS UNIT SUBCUT SCH ×4 (07:50→21:43)
[2019-01-19] MEDS ORDERED: Iodixanol* (CONTRAST) 320 MG/ML 100 ML SDV IV ONE (08:25)
--- NOTE | 2019-01-19 09:13 | PN ---
Progress Note - Progress Note Date of Service: 01/19/19 SOAP: Subjective: []Presented to the ER yesterday with severe weakness, found to have lactic acidosis and hypotension with syncopal like episode during blood draw. Has a history of syncopal episodes with injections. Feels much better today. Feels strongly his weakness was related to starting Fentanyl patch within the last 48 hrs. Feels strongly he should go back on home Tramadol (however change had been in the setting of poorly controlled pain), he feels his pain will be better controlled this wall. Curious if he can get his PleurX drained today (placed last week, Left lateral chest wall). Medications: Al Hydrox/Mg Hydrox/Simethicone (Maalox Plus*) 30 ml PO Q6H PRN PRN Reason: INDIGESTION Albuterol (Ventolin Hfa Inhaler*) 2 puff INH QID PRN PRN Reason: SHORTNESS OF BREATH Amlodipine Besylate (Norvasc Tab*) 5 mg PO DAILY [facility] Last Admin: 01/19/19 09:39 Dose: 5 mg Aspirin (Aspirin Ec Tab*) 81 mg PO DAILY [facility] Last Admin: 01/19/19 09:39 Dose: 81 mg Dextrose (D50w Syringe 50 Ml*) 12.5 gm IV PUSH .FOR FS < 60 - SS PRN PRN Reason: FS < 60 Gabapentin (Neurontin Cap(*)) 600 mg PO TID [facility] Last Admin: 01/19/19 09:39 Dose: 600 mg Hydromorphone HCl (Dilaudid Tab*) 2 mg PO BID [facility] Last Admin: 01/19/19 09:39 Dose: 2 mg Sodium Chloride (Ns 0.9% 1000 Ml) 1,000 mls @ 125 mls/hr IV PER RATE [facility] Last Admin: 01/19/19 00:39 Dose: 125 mls/hr Insulin Human Lispro (Humalog*) 0 units SUBCUT ACHS [facility]; Protocol Last Admin: 01/19/19 07:50 Dose: Not Given Isosorbide Mononitrate (Imdur Er Tab*) 30 mg PO DAILY [facility] Last Admin: 01/19/19 09:39 Dose: 30 mg Lisinopril (Prinivil Tab*) 10 mg PO DAILY [facility] Last Admin: 01/19/19 09:39 Dose: 10 mg Mometasone Furoate (Asmanex 220 Mcg Mdi *) 2 puff INH QPM [facility] Montelukast Sodium (Singulair Tab*) 10 mg PO QAM [facility] Last Admin: 01/19/19 09:39 Dose: 10 mg Nitroglycerin (Nitroglycerin Tab 0.4 Mg*) 0.4 mg SL Q5M PRN PRN Reason: PAIN - CHEST Ondansetron HCl (Zofran Inj*) 4 mg IV Q4H PRN PRN Reason: NAUSEA/VOMITING Oxycodone/Acetaminophen (Percocet 5/325 Tab*) 1 tab PO Q4H PRN PRN Reason: PAIN Last Admin: 01/19/19 06:34 Dose: 1 tab Pantoprazole Sodium (Protonix Tab*) 40 mg PO QAM [facility] Last Admin: 01/19/19 09:39 Dose: 40 mg Paroxetine HCl (Paxil Tab*) 10 mg PO DAILY [facility] Last Admin: 01/19/19 09:39 Dose: 10 mg Paroxetine HCl (Paxil Tab*) 40 mg PO DAILY [facility] Last Admin: 01/19/19 09:39 Dose: 40 mg Rivaroxaban (Xarelto(*)) 20 mg PO DAILY [facility] Last Admin: 01/19/19 09:39 Dose: 20 mg Tramadol HCl (Ultram*) 100 mg PO Q6H PRN PRN Reason: PAIN Last Admin: 01/19/19 08:40 Dose: 100 mg Zolpidem Tartrate (Ambien Tab*) 10 mg PO BEDTIME PRN PRN Reason: SLEEP Last Admin: 01/19/19 00:36 Dose: 10 mg Objective: [] Vital Signs Temp Pulse Resp BP Pulse Ox 98.5 F 78 18 125/74 97 01/19/19 07:21 01/19/19 07:21 01/19/19 09:39 01/19/19 07:21 01/19/19 07:21 A&Ox3, EOMI, neuro grossly non-focal HRR, S1S2 LS clear Left pleurX drain benign Hypoactive BS, abd. round, obese, soft and non-tender +PP=bilat., no edema noted HARRELL, moving independently in bed No acute distress noted Laboratory Results - last 24 hr 01/18/19 01/18/19 01/18/19 19:59 19:59 19:59 WBC 7.8 RBC 5.16 Hgb 13.2 L Hct 41 L MCV 79 L MCH 26 L MCHC 33 RDW 16 H Plt Count 259 MPV 8.2 Neut % (Auto) 73.9 Lymph % (Auto) 12.5 [place] % (Auto) 8.4 Eos % (Auto) 4.3 Baso % (Auto) 0.9 Absolute Neuts (auto) 5.7 Absolute Lymphs (auto) 1.0 Absolute Monos (auto) 0.7 Absolute Eos (auto) 0.3 Absolute Basos (auto) 0.1 Absolute Nucleated RBC 0.0 Nucleated RBC % 0.0 INR (Anticoag Therapy) 1.77 H APTT 45.6 H Sodium 136 Potassium 4.4 Chloride 98 L Carbon Dioxide 28 Anion Gap 10 BUN 17 Creatinine 1.12 Est GFR ( Amer) 82.7 Est GFR (Non-Af Amer) 68.3 BUN/Creatinine Ratio 15.2 Glucose 159 H POC Glucose (mg/dL) Lactic Acid Calcium 9.4 Total Bilirubin 0.40 AST 18 ALT 19 Alkaline Phosphatase 197 H Troponin I 0.00 B-Natriuretic Peptide Total Protein 7.5 Albumin 4.0 Globulin 3.5 Albumin/Globulin Ratio 1.1 TSH 3.59 01/18/19 01/18/19 01/18/19 20:00 20:00 22:41 WBC RBC Hgb Hct MCV MCH MCHC RDW Plt Count MPV Neut % (Auto) Lymph % (Auto) [place] % (Auto) Eos % (Auto) Baso % (Auto) Absolute Neuts (auto) Absolute Lymphs (auto) Absolute Monos (auto) Absolute Eos (auto) Absolute Basos (auto) Absolute Nucleated RBC Nucleated RBC % INR (Anticoag Therapy) APTT Sodium Potassium Chloride Carbon Dioxide Anion Gap BUN Creatinine Est GFR ( Amer) Est GFR (Non-Af Amer) BUN/Creatinine Ratio Glucose POC Glucose (mg/dL) Lactic Acid 3.0 H* 2.7 H* Calcium Total Bilirubin AST ALT Alkaline Phosphatase Troponin I B-Natriuretic Peptide 28 Total Protein Albumin Globulin Albumin/Globulin Ratio TSH 01/18/19 01/19/19 01/19/19 22:41 05:34 05:34 WBC 7.2 RBC 4.56 Hgb 11.7 L Hct 36 L MCV 79 L MCH 26 L MCHC 33 RDW 16 H Plt Count 209 MPV 8.2 Neut % (Auto) 67.6 Lymph % (Auto) 15.7 [place] % (Auto) 11.3 Eos % (Auto) 4.7 Baso % (Auto) 0.7 Absolute Neuts (auto) 4.9 Absolute Lymphs (auto) 1.1 Absolute Monos (auto) 0.8 Absolute Eos (auto) 0.3 Absolute Basos (auto) 0.1 Absolute Nucleated RBC 0.0 Nucleated RBC % 0.1 INR (Anticoag Therapy) APTT Sodium 137 Potassium 3.9 Chloride 104 Carbon Dioxide 24 Anion Gap 9 BUN 13 Creatinine 0.79 Est GFR ( Amer) 123.7 Est GFR (Non-Af Amer) 102.2 BUN/Creatinine Ratio 16.5 Glucose 154 H POC Glucose (mg/dL) Lactic Acid Calcium 8.4 L Total Bilirubin AST ALT Alkaline Phosphatase Troponin I 0.00 B-Natriuretic Peptide Total Protein Albumin Globulin Albumin/Globulin Ratio [facility] 01/19/19 01/19/19 05:34 07:48 WBC RBC Hgb Hct MCV MCH MCHC RDW Plt Count MPV Neut % (Auto) Lymph % (Auto) [place] % (Auto) Eos % (Auto) Baso % (Auto) Absolute Neuts (auto) Absolute Lymphs (auto) Absolute Monos (auto) Absolute Eos (auto) Absolute Basos (auto) Absolute Nucleated RBC Nucleated RBC % INR (Anticoag Therapy) APTT Sodium Potassium Chloride Carbon Dioxide Anion Gap BUN Creatinine Est GFR ( Amer) Est GFR (Non-Af Amer) BUN/Creatinine Ratio Glucose POC Glucose (mg/dL) 113 H Lactic Acid 1.6 Calcium Total Bilirubin AST ALT Alkaline Phosphatase Troponin I B-Natriuretic Peptide Total Protein Albumin Globulin Albumin/Globulin Ratio [facility] CT of head negative for malignancy per radiologist, images personally reviewed as well Assessment: []53 yo male with metastatic ER/UT+ breast cancer currently on palliative Doxil s/p C1 01/15/2019 (day 5 today) admitted with weakness and lactic acidosis with work-up otherwise negative. At this time I suspect this is a reaction to Fentanyl and mild dehydration. He wants very much to resume his home pain regimen, and although I voiced some concern regarding poor pain management and role of rotating narcotics he is adamant this will work for him. Plan: []Resume Tramadol ER 200 mg BID (aware of dosing, pt. has been on for some time) Plan home this afternoon as long as he is feeling OK
[2019-01-19] MEDS: Aspirin EC TAB* 81 MG TAB.EC PO SCH (09:39)
[2019-01-19] MEDS: Montelukast Sodium TAB* 10 MG PO SCH (09:39)
[2019-01-19] MEDS: Pantoprazole TAB * 40 MG TAB PO SCH (09:39)
[2019-01-19] MEDS: amLODIPine TAB* 5 MG PO SCH (09:39)
[2019-01-19] MEDS: PARoxetine HCL TAB* 10 MG PO SCH (09:39)
[2019-01-19] MEDS: Rivaroxaban TAB(*) 20 MG TAB PO SCH (09:39)
[2019-01-19] MEDS: HYDROmorphone TAB* 2 MG PO SCH (09:39)
[2019-01-19] MEDS: Lisinopril TAB* 10 MG PO SCH (09:39)
[2019-01-19] MEDS: Gabapentin CAP(*) 300 MG PO SCH ×3 (09:39→20:16)
[2019-01-19] MEDS: PARoxetine HCL TAB* 40 MG PO SCH (09:39)
[2019-01-19] MEDS: Isosorbide Mononitrate ER TAB* 30 MG PO SCH (09:39)
[2019-01-19] MEDS ORDERED: ALPRAZolam TAB* 0.5 MG PO PRN (10:30)
[2019-01-19] MEDS: Ondansetron INJ* 2 MG/ML VIAL IV PRN ×2 (11:10→19:32)
[2019-01-19] MEDS: HYDROmorphone TAB* 2 MG PO PRN (18:11)
[2019-01-19] MEDS: Mometasone 220 MCG MDI INH SCH (18:12)
[2019-01-19] MEDS: ALPRAZolam TAB* 0.5 MG PO PRN (20:16)
[2019-01-19] MEDS: oxyCODONE SR TAB(*) 20 MG TAB.SR PO SCH (20:17)
[2019-01-19] MEDS ORDERED: Tramadol ER(NF) 200 MG TAB.ER PO SCH (21:00)
[2019-01-19] MEDS: Bisacodyl EC TAB* 5 MG PO PRN (21:32)
[2019-01-20] MEDS: HYDROmorphone TAB* 2 MG PO PRN ×3 (05:05→13:32)
[2019-01-20] MEDS: Insulin LISPRO* 1 UNITS UNIT SUBCUT SCH ×3 (07:40→17:40)
[2019-01-20] MEDS: oxyCODONE/Acetamin 5/325 MG* TAB PO PRN (07:54)
[2019-01-20] MEDS: Isosorbide Mononitrate ER TAB* 30 MG PO SCH (07:54)
[2019-01-20] MEDS: oxyCODONE SR TAB(*) 20 MG TAB.SR PO SCH ×2 (07:54→18:17)
[2019-01-20] MEDS: Gabapentin CAP(*) 300 MG PO SCH ×2 (07:55→13:32)
[2019-01-20] MEDS: Pantoprazole TAB * 40 MG TAB PO SCH (07:55)
[2019-01-20] MEDS: Rivaroxaban TAB(*) 20 MG TAB PO SCH (07:55)
[2019-01-20] MEDS: Aspirin EC TAB* 81 MG TAB.EC PO SCH (07:55)
[2019-01-20] MEDS: PARoxetine HCL TAB* 40 MG PO SCH (07:56)
[2019-01-20] MEDS: Montelukast Sodium TAB* 10 MG PO SCH (07:56)
[2019-01-20] MEDS: Lisinopril TAB* 10 MG PO SCH (07:56)
[2019-01-20] MEDS: amLODIPine TAB* 5 MG PO SCH (07:56)
[2019-01-20] MEDS: PARoxetine HCL TAB* 10 MG PO SCH (07:56)
[2019-01-20] MEDS: Bisacodyl EC TAB* 5 MG PO PRN (08:09)
--- NOTE | 2019-01-20 12:04 | DS ---
- Discharge Summary Admission Date: 01/18/19 Discharge Date: 01/20/19 Discharge Diagnosis: 1. Weakness: felt secondary to initiation of Fentanyl, improved since d/c 2. Pain secondary to bone mets: adjustment of pain medications with oxycodone ER started this admission 3. Metastatic cancer: s/p C1 Doxil, expect tenzin over next week 4. DM: resume home meds 5. h/o PE: chronic anti-coagulation, no change Discharge Medications: Medication Instructions Recorded Confirmed Type Albuterol HFA INHALER* [Ventolin 2 puff INH QID PRN 09/30/15 01/18/19 History HFA Inhaler*] Aspirin EC TAB* [Ecotrin EC Low 81 mg PO DAILY 09/30/15 01/18/19 History Dose 81 MG*] Gabapentin CAP(*) [Neurontin 300 600 mg PO TID 09/30/15 01/18/19 History CAP(*)] Lisinopril TAB* [Prinivil TAB 10 10 mg PO DAILY 09/30/15 01/18/19 History MG*] LoraTADine TAB(NF) [Claritin 10 MG 10 mg PO DAILY 09/30/15 01/18/19 History TAB(NF)] Montelukast Sodium TAB* [Singulair 10 mg PO QAM 09/30/15 01/18/19 History 5 mg TAB*] Nitroglycerin TAB 0.4 MG* 0.4 mg SL Q5M PRN 09/30/15 01/18/19 History Omeprazole CAP (NF) [Prilosec CAP* 20 mg PO QAM 09/30/15 01/18/19 History 20 MG] metFORMIN* [Glucophage 1000 MG TAB 1,000 mg PO BID 09/30/15 01/18/19 History *] Beclomethasone 80 MCG MDI(NF) 2 puff INH BID 04/09/18 01/18/19 History [Qvar 80 MCG MDI(NF)] PARoxetine HCL TAB* [Paxil TAB*] 10 mg PO DAILY 04/09/18 01/18/19 History Zolpidem TAB* [Ambien*] 10 mg PO BEDTIME PRN 04/09/18 01/18/19 History amLODIPine TAB* [Norvasc 5 mg TAB*] 5 mg PO DAILY 04/09/18 01/18/19 History PARoxetine HCL TAB* [Paxil TAB*] 40 mg PO DAILY 07/07/18 01/18/19 History Rivaroxaban TAB(*) [Xarelto 20 mg] 20 mg PO DAILY 07/07/18 01/18/19 History Isosorbide Mononitrate [Isosorbide 1 tab PO DAILY 01/18/19 01/18/19 History Mononitrate ER] ALPRAZolam TAB* [Xanax TAB*] 1 mg PO BID PRN #10 tab MDD 2 mg 01/20/19 Rx Al Hydrox/Mg Hydrox/Simet LIQ* 30 ml PO Q6H PRN udc 01/20/19 Rx [Maalox Plus*] Bisacodyl EC TAB* [Dulcolax EC 5 mg PO TID PRN #30 tab.ec 01/20/19 Rx TAB*] HYDROmorphone TAB* [Dilaudid TAB*] 2 mg PO Q4H PRN #60 tab MDD 6 tabs 01/20/19 Rx Oxycodone HCl [Oxycodone HCl ER] 10 mg PO BID #30 tab.er.12h MDD 20 01/20/19 Rx mg (2 tabs) Diet: As tolerated Disposition: Stable Hospital Course: Please see admission note for full H&P, however briefly, Mr. Pineda is well known to our service due to his unfortunate diagnosis of metastatic breast cancer. He was recently started on Doxil (C1D1 01/14/19) following palliative RT d/t progressive luis manuel mets and recently diagnosed metastatic pleural effusion on the left (now s/p PleurX catheter placement as well). Due to progressive disease in the bones his pain has been poorly controlled and he was started on Fentanyl in replcement of his Tramadol ER. He was instructed to cont. his PRN meds for breakthrough pain. He presented to the ER on 01/18/19 with profound weakness. It was felt this was very likely related to the initiation of a new long acting pain med and his Fentanyl was removed. Within 24 hours Mr. Pineda felt markedly better, however his pain remained significant. After an extensive discussion he agreed to a trial of Oxycodone ER. This was started on the evening of 01/19. This AM he notes his pain is much better however he felt the dose was a little high and caused sedation. He feels he is strong enough for d/c home and feels comfortable with the plan for pain management. Mr. Pineda will be discharged in stable condition back home to his private residence. He will start Oxycodone ER 10 mg BID this evening. He will cont. his Hydromorphone 2 mg PO q4hrs PRN breakthrough pain. He requires multiple narcotics due to the nature of his metastatic cancer to the bones. He has been instructed to stop his percocet and dispose of the Fentanyl appropriately. Follow-up Dr. Queen 02/04/19 @ 3289 >40 min spent with >50% face to face counseling
[2019-01-20 15:53] VITALS: BP 148/85
[2019-01-20] MEDS: ALPRAZolam TAB* 0.5 MG PO PRN (18:24)
[2019-01-20] MEDS: Mometasone 220 MCG MDI INH SCH (19:31)
== END 2019-01-20 19:05 | disposition home or self-care (01) ==
LOC: ED 18:53 → MED 22:25
PROVIDERS: ADMIT Internal Medicine; ATTEND Internal Medicine Hematology & Oncology
DX: R53.1 Weakness (principal); R07.9 Chest pain, unspecified; C50.929 Malignant neoplasm of unspecified site of unspecified male breast; C79.51 Secondary malignant neoplasm of bone; J91.0 Malignant pleural effusion; E11.9 Type 2 diabetes mellitus without complications; F32.9 Major depressive disorder, single episode, unspecified; Z86.711 Personal history of pulmonary embolism; Z79.01 Long term (current) use of anticoagulants; Z79.899 Other long term (current) drug therapy; Z79.84 Long term (current) use of oral hypoglycemic drugs; Z87.891 Personal history of nicotine dependence
CPT/HCPCS: 36415; 70460; 71045; 80048; 80053; 83605; 83880; 84443; 84484; 85025; 85610; 85730; 87040; 93005; 96365; 96366; 96368; 99233; 99285; A9270-GY; G0378; J1170; J2405; J2543; J3370; Q9967

== ENCOUNTER 2019-05-25 16:08 | Emergency (ER) | payer OTHER ==
[2019-05-25 16:16] VITALS: BP 143/90
--- NOTE | 2019-05-25 17:58 | ED ---
Complex/Multi-Sys Presentation - HPI Summary HPI Summary: Patient is a 54 y/o M w/ stage 4 cancer and thoracic drain who presents to [facility] with positive cultures of his port. Patient was brought over from [facility]. The patient will need evaluation by a thoracic surgeon. Patient came to [facility] in expectation that he can be transferred to [facility]. Patient wants to be transferred to this facility as his daughter lives in [place]. It was explained that insurance will only cover transfer of the patient to the closest higher level of care facility and he will need to cover the difference if he wants to be transferred to [place] from [facility]. With this information, the patient declines evaluation and wants to leave AM, noting that he would not be able to cover the difference of transfer to [place]. Possible risks of leaving AM were extensively discussed, including disability and . However, patient still wants to leave AM. Patient is alert and oriented x3. He is capable of making independent decisions for himself. Patient will have his daughter come tomorrow morning to drive him to [place]. He signed out AMA. - History Of Current Complaint Chief Complaint: EDShortnessOfBreath Time Seen by Provider: 05/25/19 16:15 Hx Obtained From: Patient Onset/Duration: Still Present Timing: Constant Severity Currently: Severe - on triage, pain is rated 9/10 Associated Signs And Symptoms: Positive: Other - positive cultures of thoracic port. Negative: Fever - on vitals, temp is 99.3 F - Allergies/Home Medications Allergies/Adverse Reactions: Allergies Allergy/AdvReac Type Severity Reaction Status Date / Time No Known Drug Allergies Allergy See Comment Verified 05/25/19 16:16 seasonal Allergy Mild See Comment Uncoded 04/23/19 10:14 PMH/Surg Hx/FS Hx/Imm Hx Endocrine/Hematology History: Reports: Hx Bone Marrow Disease - Dx 2014, CANCER , Hx Diabetes - Dx IN 2009 ON DAILY MEDS Denies: Hx Anticoagulant Therapy, Hx Thyroid Disease Cardiovascular History: Reports: Hx Angina, Hx Cardiomegaly, Hx Coronary Artery Disease, Hx Deep Vein Thrombosis, Hx Hypercholesterolemia, Hx Hypertension, Hx Myocardial Infarction, Hx Syncope, Other Cardiovascular Problems/Disorders - ON XARELTO Denies: Hx Pacemaker/ICD, Hx Valvular Heart Disease Respiratory History: Reports: Hx Asthma - USES DAILY INHALERS, Hx Pulmonary Embolism, Hx Seasonal Allergies, Hx Sleep Apnea - maybe, Other Respiratory Problems/Disorders - FLUID DRAWN FROM LEFT LUNG, PT STATES LUNG CANCER Denies: Hx Chronic Obstructive Pulmonary Disease (COPD) GI History: Reports: Hx Gastroesophageal Reflux Disease - ON DAILY MEDS, Hx Ulcer, Other GI Disorders - umbilical hernia History: Reports: Other Problems/Disorders - blood in urine Denies: Hx Renal Disease Musculoskeletal History: Reports: Hx Arthritis - SPINE, KNEES, LEFT HIP, Hx Back Problems, Hx Orthopedic Injury - (left) knee, (right) ring finger, Other Musculoskeletal History Denies: Hx Osteoporosis, Hx Scoliosis Sensory History: Denies: Hx Cataracts, Hx Contacts or Glasses, Hx Glaucoma, Hx Deafness, Hx Hearing Aid Opthamlomology History: Denies: Hx Cataracts, Hx Contacts or Glasses, Hx Glaucoma Neurological History: Denies: Hx Dementia, Hx Headaches, Hx Seizures, Other Neuro Impairments/ Disorders Psychiatric History: Reports: Hx Anxiety, Hx Depression Denies: Hx Panic Disorder, Hx Substance Abuse - Cancer History Cancer Type, Location and Year: LT BREAST CANCER WITH LUMPECTOMY 2008 and 2011. Bone cancer 2013 Hx Chemotherapy: Yes Hx Radiation Therapy: Yes - Surgical History Surgery Procedure, Year, and Place: 1988 APPY [facility]. 1999 L KNEE RECONST [facility] x2. 2009 L BREAST CANCER [place]OM[place] [facility]. 2009 &, 2007 & 2011 2 CARDIAC STENTS, [facility]. 2012 breast CA. 2016 LEFT FEMUR T BONE MARROW OUT, REPLACED WITH BON STRONG. PORT PLACEMENT Hx Anesthesia Reactions: No - Immunization History Date of Tetanus Vaccine: <10 years Date of Influenza Vaccine: 2017 Infectious Disease History: No Infectious Disease History: Denies: Hx Hepatitis, Hx Human Immunodeficiency Virus (HIV), Hx of Known/ Suspected MRSA, Hx Shingles, Hx Tuberculosis, Hx Known/Suspected VRE, Hx Known/ Suspected VRSA, History Other Infectious Disease, Traveled Outside the [place] in Last 30 Days - Family History Known Family History: Positive: Cardiac Disease - Social History Alcohol Use: None Hx Substance Use: No Substance Use Type: Reports: None Hx Tobacco Use: Yes Smoking Status (MU): Former Smoker Type: Cigarettes Amount Used/How Often: 2 PPD 8 YRS Length of Time of Smoking/Using Tobacco: on and off for 3 years Have You Smoked in the Last Year: No Review of Systems Constitutional: Other - positive cultures of thoracic port Negative: Fever - on vitals, temp is 99.3 F Neurological: Other - negative - altered mental status All Other Systems Reviewed And Are Negative: Yes Physical Exam - Summary Physical Exam Summary: Appearance: The patient is well-nourished in no acute distress and in no acute pain. He is non-toxic in appearance. Skin: The skin is warm and dry, and skin color reflects adequate perfusion. He is not jaundiced. HEENT: The head is normocephalic and atraumatic. The pupils are equal and reactive. The conjunctivae are clear and without drainage. Nares are patent and without drainage. Mouth reveals dry mucous membranes, and the throat is without erythema and exudate. The external ears are intact. The ear canals are patent and without drainage. The tympanic membranes are intact. Neck: The neck is supple with full range of motion and non-tender. There are no carotid bruits. There is no neck vein distension. Respiratory: Chest is non-tender. Lungs are clear to auscultation and breath sounds are symmetrical and equal. Cardiovascular: Heart is regular rate and rhythm. There is no murmur or rub auscultated. There is no peripheral edema and pulses are symmetrical and equal. Abdomen: The abdomen is soft and non-tender. There are normal bowel sounds heard in all four quadrants and there is no organomegaly palpated. Musculoskeletal: There is no back tenderness noted. Extremities are non-tender with full range of motion. There is good capillary refill. There is no peripheral edema or calf tenderness elicited. Neurological: Patient is alert and oriented to person, place and time. The patient has symmetrical motor strength in all four extremities. Cranial nerves are grossly intact. Deep tendon reflexes are symmetrical and equal in all four extremities. There are no focal neurological deficits. He has a clear thought pattern and is clear of mind. Psychiatric: The patient has an appropriate affect and does not exhibit any anxiety or depression. Triage Information Reviewed: Yes Vital Signs On Initial Exam: Initial Vitals Temp Pulse Resp BP Pulse Ox 99.3 F 76 16 143/90 96 05/25/19 16:13 05/25/19 16:13 05/25/19 16:13 05/25/19 16:13 05/25/19 16:13 Vital Signs Reviewed: Yes Procedures - Sedation Patient Received Moderate/Deep Sedation with Procedure: No Diagnostics - Vital Signs Vital Signs Temp Pulse Resp BP Pulse Ox 05/25/19 16:13 99.3 F 76 16 143/90 96 - Laboratory Lab Statement: Any lab studies that have been ordered have been reviewed, and results considered in the medical decision making process. Complex Multi-Symp Course/Dx - Diagnoses Provider Diagnoses: Infected venous access port Discharge ED - Sign-Out/Discharge Documenting (check all that apply): Patient Departure - AMA - Discharge Plan Condition: Stable Disposition: AGAINST MEDICAL ADVICE Referrals: Anaya Pineda MD [Primary Care Provider] - - Billing Disposition and Condition Condition: STABLE Disposition: Against Medical Advice - Attestation Statements Document Initiated by Scribe: Yes Documenting Scribe: ORION ARZATE Provider For Whom Scribe is Documenting (Include Credential): BELLA CARD MD Scribe Attestation: IORION scribed for BELLA CARD MD on 05/25/19 at 2128. Scribe Documentation Reviewed: Yes Provider Attestation: The documentation as recorded by the bunnyibORION cherry accurately reflects the service I personally performed and the decisions made by me, BELLA CARD MD Status of Scribe Document: Viewed
--- OUTSIDE RECORDS SUMMARY | 2019-05-26 08:28 | XMS REPORT | Continuity of Care Document ---
:1965 External Reference #:[id number] Author Name Vira Carrasco O.D. Address [address] [place] [address] Care Team Providers Name Role Phone Anaya Pineda M.D. - Internal Care Team Information Weaving Inspector Medicine Sheng Queen M.D. - Oncology Care Team Information Weaving Inspector [phone] Problems Active Problems Provider Date Malignant neoplasm of male breast Onset: Type 2 diabetes mellitus Onset: H/O: hypertension Onset: Nuclear senile cataract Mamadou Tang M.D. Onset: 03/19/2017 Myopia Mamadou Tang M.D. Onset: 03/19/2017 Presbyopia Mamadou Tang M.D. Onset: 03/19/2017 Malignant neoplasm of male breast Atiya Tavarez O.D. Onset: 04/17/2019 Secondary malignant neoplasm of lung Atiya Tavarez O.D. Onset: 2018 Malignant neoplasm of bone Atiya Tavarez O.D. Onset: 04/17/2019 Tear film insufficiency Vira Carrasco O.D. Onset: 05/22/2019 Chorioretinal tumor Atiya Tavarez O.D. Onset: 04/17/2019 Social History Type Date Description Comments Sex Unknown ETOH Use Denies alcohol use Tobacco Use Start: Unknown End: Patient is a former smoker quite 1992 Unknown Recreational Drug Use Denies Drug Use Smoking Status Reviewed: 05/22/19 Patient is a former smoker quite 1992 Allergies, Adverse Reactions, Alerts Active Allergies Reaction Severity Comments Date Seasonal Moderate 05/22/2019 Medications Active Medications SIG Qnty Indications Ordering Provider Date Zolpidem Tartrate Take 1 Tablet By Unknown 10mg Mouth Everyday AT Tablets Bedtime Glimepiride Anaya Pineda 4mg Tablets M.D. Clotrimazole Lucio Jurado 1% Cream P. DPM Nitrostat Maghasonya, 0.4mg Tablets Qutaybeh M.D. Sub Omeprazole Anaya Pineda 20mg Capsules M.D. DR Danielson Inhale 2 Puffs Unknown 80mcg/Act Aerosol Twice A Day Proair HFA Take 2 Puffs 4 Unknown 108(90Base) Times A Day as mcg/Act Aerosol Needed Paroxetine HCL Take 1 Tablet By Unknown 40mg Mouth Every Day Tablets Montelukast Sodium Take 1 Tablet By Unknown 10mg Mouth Every Day Tablets Atorvastatin Calcium Take 1 Tablet By Unknown 40mg Mouth Every Day Tablets Meloxicam Sameer Chavez 15mg Tablets M.D. Tramadol HCL ER Take 1 Tablet By Unknown 200mg Mouth Twice A Day Tablets ER 24HR Metformin HCL Take 1 Tablet By Unknown 1000mg Mouth Twice A Day Tablets Loratadine Take 1 Tablet By Unknown 10mg Tablets Mouth Every Day as Needed Lisinopril Take 1 Tablet By Unknown 10mg Tablets Mouth Every Day Isosorbide Mononitrate Take 1/2 Tab By Unknown Mouth Twice A Day 10mg Tablets Gabapentin Take One Capsule Unknown 300mg Capsules By Mouth Twice A Day [facility] Gentle Laxative Take 4 Tablets By Unknown 5mg Mouth Every Day as Tablets DR Needed For No Bowel Movement For Ibuprofen David Finney 600mg Tablets M.D. Immunizations Description No Information Available Vital Signs Description No Information Available Results Description No Information Available Procedures Date Code Description Status 04/17/2019 74856 Fundus Photography With Interpretation And Report Completed 04/17/2019 36332 Est Patient Comprehensive Exam Completed Medical Devices Description No Information Available Encounters Description No Information Available Assessments Date Code Description Provider 05/22/2019 H04.123 Dry eye syndrome of bilateral lacrimal Vira Carrasco O.D. glands 05/22/2019 D49.81 Neoplasm of unspecified behavior of Vira Carrasco O.D. retina and choroid 05/22/2019 H52.13 Myopia, bilateral Vira Carrasco O.D. 05/22/2019 H52.4 Presbyopia Vira Carrasco O.D. 04/17/2019 D49.81 Neoplasm of unspecified behavior of Atiya Tavarez O.D. retina and choroid 04/17/2019 H25.13 Age-related nuclear cataract, bilateral Atiya Tavarez O.D. Plan of Treatment 05/22/2019 - Vira Carrasco O.D.H04.123 Dry eye syndrome of bilateral lacrimal glandsComments:Both of your eyes appear to be dry. Use artificial tears as directed. You can use the tears more often if you are reading a book or are on the computer, as we tend to blink less, making our eyes dry out more.[facility] offers a few items in our optical department to help alleviate dry eye symptoms. USE ARTIFICIAL TEARS NEEDEDUSE LUMIFY DROPS NEEDED FOR PEVPRHQL68.81 Neoplasm of unspecified behavior of retina and choroidComments: Smoking can increase the risk of developing or worsening any eye related disease , as well as affect your overall health. If you are a smoker, we strongly recommend that you quit.If you are not a smoker, we strongly recommend that you do not start.H52.13 Myopia, bilateralComments:You have Myopia, or near sightedness. I have given you a prescription for glasses.H52.4 PresbyopiaComments:You have presbyopia. This is when the lens in your eye loses the ability to change focus, and happens as we age. A pair of reading glasses will help you see up close. Functional Status Description No Information Available Mental Status Description No Information Available Referrals Refer to Reason for Referral Status Appt Date Petr Pressley M.D. LARGE MASS BEHIND OD/SUDDEN LOSS [place] Reviewed Complete 04/18/2019 [facility] [address] [place] [id number] [phone]
--- OUTSIDE RECORDS SUMMARY | 2019-05-26 08:28 | XMS REPORT | Continuity of Care Document ---
:1965 External Reference #:[id number] Author Name Manny Solano MD (transmitted by agent of provider Luz Marina Rangel) Address [address] [place] [address] Care Team Providers Name Role Phone Alpesh Mcmahon MD - Surgery Care Team Information Doper Operator [phone] Sienna Welch MD - Pain Medicine Care Team Information Doper Operator [phone] [facility] - Care Team Information Doper Operator [phone] Mental Health Problems Active Problems Provider Date Coronary atherosclerosis Anaya Robles M.D. Onset: 08/23/2011 Benign essential hypertension Anaya Robles M.D. Onset: 08/23/2011 Disorder of lumbar disc Anaya Robles M.D. Onset: 08/23/2011 Note: L4/L5 small disc herniation Pure hypercholesterolemia Anaya Robles M.D. Onset: 08/23/2011 Hyperlipidemia Myriam Blandon.Janneth Onset: 04/23/2012 Gastroesophageal reflux disease Sameer Chavez M.D. Onset: 05/05/2012 Type 2 diabetes mellitus Sameer Chavez M.D. Onset: 05/05/2012 Personal history of primary malignant Anaya Robles M.D. 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 Onset: Note: paternal aunt Cervical disc disorder Sameer Chavez M.D. Onset: 11/02/2014 Disorder of shoulder Sameer Chavez M.D. Onset: 11/02/2014 Obesity Anaya Robles M.D. Onset: 11/10/2014 Depressive disorder Anaya Robles M.D. Onset: 11/10/2014 Cervical spondylosis without myelopathy David Finney M.D. Onset: 11/22/2014 Essential hypertension Anaya Robles M.D. Onset: 04/11/2015 Degeneration of lumbar intervertebral disc David Finney M.D. Onset: 2014 Trochanteric bursitis Keiko Wing MD Onset: 08/28/2016 Knee pain Keiko Wing MD Onset: 01/03/2017 Low back pain Keiko Wing MD Onset: 07/04/2017 Lumbar radiculopathy Keiko Wing MD Onset: 07/04/2017 Social History Type Date Description Comments Sex Unknown Tobacco Use Start: Unknown 1991 ETOH Use Denies alcohol use Tobacco Use Start: Unknown End: Patient is a former 3 ppd 5 years, quit Unknown smoker 1992 Recreational Drug Use Denies Drug Use Smoking Status Reviewed: 03/30/19 Patient is a former 3 ppd 5 years, quit smoker 1992 Exercise Type/Frequency Does not exercise Allergies, Adverse Reactions, Alerts Active Allergies Reaction Severity Comments Date NKDA 11/10/2014 seasonal 08/16/2011 Inactive Allergies No Known Drug Allergy 09/19/2011 Medications Active Medications SIG Qnty Indications Ordering Date Provider [facility] Gentle Laxative take 4 tabs by mouth 120tabs [facility] 02/09/2019 every day as needed Raisa Robles 5mg Tablets DR for no bowel movement for 4 days. max 90 tabs/month Glimepiride once a day 90tabs E11.9 [facility] 02/09/2019 4mg Raisa Robles Tablets Miralax mix 2 tablespoons in 510gm K59.03 [facility] 02/09/2019 3350NF Powder 16 oz water daily Raisa Robles Tolnaftate apply daily twice a 1units B35.3 [facility] 02/09/2019 1% Aerosol dayX 10 days Raisa Robles Xanax Twice Daily 10tabs Unknown 01/20/2019 0.5mg Tablets Maalox Regular Q6H Unknown 01/20/2019 Strength [id number] Suspension Oxycodone HCL ER Twice Daily 30tabs Unknown 01/20/2019 10mg Tab ER 12H Abuse-Det Symbicort inhale two puffs by 10.200gm J45.909 Kelli 12/29/2018 mouth twice a day MD Ruiz 80-4.5mcg/Act Aerosol Isosorbide 1 by mouth every day 90tabs Qutaybeh S. 11/19/2018 Mononitrate ER Maghaydah, 30mg M.DAyush Tablets ER 24HR Shingrix intramuscular x 1 1units [facility] 10/06/2018 50mcg/0.5ML then repeat in 4 Raisa Robles Suspension Rec months Ureacin-20 apply on soles of 226.8gm [facility] 10/06/2018 20% Cream feet daily Raisa Robles Qvar Redihaler Twice Daily Unknown 04/09/2018 80mcg/Act Aerosol Qvar Redihaler Twice Daily Unknown 04/09/2018 80mcg/Act Aerosol Alogliptin Benzoate Take 1 Tablet By 90tabs E11.9 Anaya 04/09/2018 Mouth Every Day Raisa Robles 25mg Tablets True Metrix Meter for testing daily 1units [facility] 12/11/2017 Raisa Robles W/Device Kit True Metrix Blood test 3 times daily 300units [facility] 12/11/2017 Glucosetest Strips dx E11.65 Raisa Robles Strips Accu-Check Glucose use device as 1units [facility] 12/02/2017 Monitor instructed check Raisa Robles Device sugars 3 times a day Dx E11.65 Accu-Chek Janae Test check twice a day dx 100units E11.9 [facility] 2017 Strips e 11.9 Raisa Robles Accu-Check Strips test 3 times as 100units [facility] 12/02/2017 directed dx: e11.9 Raisa Robles Strips Norvasc Take 1 Tablet By 90tabs [facility] 10/07/2017 5mg Tablets Mouth Every Day Raisa Robles Qvar Redihaler 2 puffs every 12 31.8gm [facility] 09/20/2017 hours- vacation Raisa Robles 80mcg/Act Aerosol overide Paroxetine HCL 1 by mouth every day 90tabs Anaya 06/27/2017 10mg along with 40 mg Raisa Robles Tablets daily Diclofenac Sodium Take 1 Tablet By 60tabs Vivi Saul, 06/20/2017 Mouth Twice A Day Raisa 75mg Tablets DR With Food DO Not Combine With Ibuprofen Or Meloxicam Aspir-81 take 1 by mouth each 90tabs Anaya 06/05/2017 81mg Tablets day Raisa Robles DR Omeprazole take one capsule by 90caps K21.9 Anaya 03/19/2017 20mg mouth every morning Raisa Robles Capsules DR before breakfast as needed Freestyle Lite Test check blood sugars 100units [facility] 10/06/2015 2-3 times a day and Raisa Robles Strips as needed dx: e11.9 Freestyle System dx: e11.9 1units [facility] 10/06/2015 Kit Raisa Robles Freestyle Lancets use 2 days a day as 100units [facility] 10/06/2015 needed dx: e11.9 Raisa Robles Misc Ascriptin Every Day Unknown 09/30/2015 81mg Ec Tablets Loratadine take 1 tablet by 90tabs Anaya 09/28/2014 10mg mouth every day as Raisa Robles Tablets needed- vacation overide Atorvastatin Calcium Take 1 Tablet By 90tabs Anaya 12/17/2013 Mouth Every Day Raisa Robles 40mg Tablets Paroxetine HCL Take 1 Tablet By 30tabs F32.9 Anaya 07/23/2013 40mg Mouth Every Day Raisa Robles Tablets Ventolin HFA inhale 2 puffs by 18units Deanna Flowers, 05/21/2013 mouth 4 times a day 108(90Base) mcg/Act as needed Aerosol Metformin HCL Take 1 Tablet By 180tabs Anyaa 12/09/2012 1000mg Mouth Twice A Day Raisa Robles Tablets Singulair take 1 tablet by 90tabs Anaya 08/16/2011 10mg mouth every day Raisa Robles Tablets Lisinopril Take 1 Tablet By 30tabs Anaya 08/16/2011 10mg Mouth Every Day Raisa Robles Tablets Gabapentin take 2 caps by mouth 180caps Ramya Jagjit, 300mg in morning, 2 at MD Capsules mid-day, and 2 in evening Nitrostat take 1 tablet under 25tabs Qutaybeh S. 0.4mg the tongue every 5 Maghaydah, Tablets Sub minutes up to 3 M.D. doses as needed for chest pain Accu-Chek Fastclix use 3 times daily 204units Anaya Lancets to check bS Raisa Robles Misc Zolpidem Tartrate 1 tab at bedtime as Unknown needed for sleep 10mg Tablets Hydromorphone HCL Take 1 Tablet In The Unknown 2mg Morning, And Tablets Afternoon, And 3 Tablets AT Bedtime Xarelto Take 1 Tablet By Unknown 20mg Tablets Mouth Every Day Oxycontin Take 1 Tablet By Unknown 10mg Tab ER Mouth Twice A Day 12H Abuse-Det Fentanyl Apply 1 Patch Every Unknown 25mcg/HR 72 Hours - PA Req Patches 72HR Faxed 01/13 History Medications Isosorbide Dinitrate 1 by mouth 90tabs Qutaybeh S. 10/14/2018 - daily Raisa Simpson 11/19/2018 10mg Tablets Medications Administered in Office Medication SIG Qnty Indications Ordering Provider Date Triamcinolone (Kenalog) Keiko Wing MD 09/27/2017 Injection Triamcinolone (Kenalog) Keiko Wing MD 09/27/2017 Injection Triamcinolone (Kenalog) Keiko Wing MD 06/20/2017 Injection Triamcinolone (Kenalog) Keiko Wing MD 06/20/2017 Injection Triamcinolone (Kenalog) Keiko Wing MD 10/25/2016 Injection Triamcinolone (Kenalog) Keiko Wing MD 08/28/2016 Injection Triamcinolone (Kenalog) Rebeca Barron NP 03/15/2016 Injection Triamcinolone (Kenalog) Keiko Wing MD 03/15/2016 Injection Immunizations CPT Code Status Date Vaccine Lot # [id number] Given 07/01/2018 Influenza Virus Vaccine, Quadrivalent, Split, Preservative Free [id number] Given 06/05/2017 Influenza Virus Vaccine, Quadrivalent, Split, [id number] Preservative Free 48218 Given 06/06/2016 Influ Virus Vaccine, Quadrivalent, Split Virus, [place] [id number] [address] Given 04/11/2015 Influenza Virus Vaccine, Quadrivalent, Split, [id number] Preservative Free 77887 Given 11/10/2014 Tdap - Tetanus/Diptheria/Acellular Pertussis [id number] 12476 Given 11/10/2014 Pneumococcal Conjugate Vaccine 13 Valent For [id number] Intramuscular Use 46027 Given 05/12/2014 Flu Vaccine Split Virus Preservative Free For [id number] Indiv 3Yr Older 83568 Given 03/31/2014 Hepatitis B Vaccine Adult Dosage [id number] 29708 Given 08/31/2013 Hepatitis B Vaccine Adult Dosage [id number] 33792 Given 07/23/2013 Hepatitis B Vaccine Adult Dosage [id number] 97664 Given 05/07/2013 Flu Vaccine Split Virus Preservative Free For [id number] Indiv 3Yr Older [id number] Given 09/12/2012 Fluvirin Im 3Yrs And Older [id number] 52034 Given 08/11/2012 Pneumonia Vaccine [id number] 52176 Given 07/27/2008 Tetanus And Diptheria (Td) For Adult Use Preservative Free Vital Signs Date Vital Result Comment 03/30/2019 3:21pm Height 71 inches 5'11" Weight 218.00 lb Heart Rate 76 /min BP Systolic 122 mmHg BP Diastolic 74 mmHg Respiratory Rate 14 /min Pain Level 10 BMI (Body Mass Index) 30.4 kg/m2 02/09/2019 1:43pm Height 71 inches 5'11" Weight 217.00 lb Heart Rate 85 /min BP Systolic Sitting 126 mmHg BP Diastolic Sitting 82 mmHg O2 % BldC Oximetry 95 % BMI (Body Mass Index) 30.3 kg/m2 Results Test Date Facility Test Result H/L Range Note CBC Auto 03/12/2019 [facility] White Blood 5.2 10^3/uL Normal 3.5-10.[address] Count [place], [place] [id number] [phone] Red Blood Count 4.90 10^6/uL Normal 4.18-5.48 Hemoglobin 12.2 g/dL Low 14.0-18.0 Hematocrit 38 % Low 42-52 Mean Corpuscular Volume 77 fL Low 80-94 Mean Corpuscular Hemoglobin 25 pg Low 27-31 Mean Corpuscular HGB Conc 33 g/dL Normal 31-36 Red Cell Distribution Width 18 % High 10-15 Platelet Count 320 10^3/uL Normal 150-450 Mean Platelet Volume 7.6 fL Normal 7.4-10.4 Abs Neutrophils 3.4 10^3/uL Normal 1.5-7.7 Abs Lymphocytes 1.0 10^3/uL Normal 1.0-4.8 Abs Monocytes 0.5 10^3/uL Normal 0-0.8 Abs Eosinophils 0.2 10^3/uL Normal 0-0.6 Abs Basophils 0.1 10^3/uL Normal 0-0.2 Abs Nucleated RBC 0.0 10^3/uL Granulocyte % 65.4 % Lymphocyte % 18.6 % Monocyte % 10.3 % Eosinophil % 4.1 % Basophil % 1.6 % Nucleated Red Blood Cells % 0.1 Comp Metabolic 03/12/2019 [facility] Sodium 136 mmol/L Normal 135-[address] [place] [address] [phone] Potassium 4.2 mmol/L Normal 3.5-5.0 Chloride 103 mmol/L Normal 101-111 Co2 Carbon Dioxide 24 mmol/L Normal 22-32 Anion Gap 9 mmol/L Normal 2-11 Glucose 151 mg/dL High 70-100 Blood Urea Nitrogen 15 mg/dL Normal 6-24 Creatinine 0.85 mg/dL Normal 0.67-1.17 BUN/Creatinine Ratio 17.6 Normal 8-20 Calcium 9.1 mg/dL Normal 8.6-10.3 Total Protein 7.1 g/dL Normal 6.4-8.9 Albumin 4.0 g/dL Normal 3.2-5.2 Globulin 3.1 g/dL Normal 2-4 Albumin/Globulin Ratio 1.3 Normal 1-3 Total Bilirubin 0.30 mg/dL Normal 0.2-1.0 Alkaline Phosphatase 110 U/L High 34-104 Alt 13 U/L Normal 7-52 Ast 17 U/L Normal 13-39 Egfr Non- 93.6 >60 Egfr 113.2 >60 1 Laboratory test 03/12/2019 [facility] Breast 433 U/mL High <= 38.0 [address] [place] [address] Ag(Ca27.29) [phone] CBC Auto Diff 03/05/2019 [facility] White Blood 3.6 Normal 3.5 -10.[address] Count 10^3/uL [place], [place] [id number] [phone] Red Blood Count 4.42 10^6/uL Normal 4.18-5.48 Hemoglobin 11.2 g/dL Low 14.0-18.0 Hematocrit 34 % Low 42-52 Mean Corpuscular Volume 77 fL Low 80-94 Mean Corpuscular Hemoglobin 25 pg Low 27-31 Mean Corpuscular HGB Conc 33 g/dL Normal 31-36 Red Cell Distribution Width 17 % High 10-15 Platelet Count 268 10^3/uL Normal 150-450 Mean Platelet Volume 7.7 fL Normal 7.4-10.4 Abs Neutrophils 1.9 10^3/uL Normal 1.5-7.7 Abs Lymphocytes 0.8 10^3/uL Low 1.0-4.8 Abs Monocytes 0.5 10^3/uL Normal 0-0.8 Abs Eosinophils 0.3 10^3/uL Normal 0-0.6 Abs Basophils 0.1 10^3/uL Normal 0-0.2 Abs Nucleated RBC 0.0 10^3/uL Granulocyte % 51.6 % Lymphocyte % 23.5 % Monocyte % 14.9 % Eosinophil % 7.8 % Basophil % 2.2 % Nucleated Red Blood Cells % 0.0 Comp Metabolic 03/05/2019 [facility] Sodium 135 mmol/L Normal 135-[address] [place] [address] [phone] Potassium 4.4 mmol/L Normal 3.5-5.0 Chloride 105 mmol/L Normal 101-111 Co2 Carbon Dioxide 25 mmol/L Normal 22-32 Anion Gap 5 mmol/L Normal 2-11 Glucose 107 mg/dL High 70-100 Blood Urea Nitrogen 14 mg/dL Normal 6-24 Creatinine 0.80 mg/dL Normal 0.67-1.17 BUN/Creatinine Ratio 17.5 Normal 8-20 Calcium 9.1 mg/dL Normal 8.6-10.3 Total Protein 6.7 g/dL Normal 6.4-8.9 Albumin 3.7 g/dL Normal 3.2-5.2 Globulin 3.0 g/dL Normal 2-4 Albumin/Globulin Ratio 1.2 Normal 1-3 Total Bilirubin 0.30 mg/dL Normal 0.2-1.0 Alkaline Phosphatase 112 U/L High 34-104 Alt 10 U/L Normal 7-52 Ast 14 U/L Normal 13-39 Egfr Non- 100.4 >60 Egfr 121.4 >60 3 Laboratory test 03/05/2019 [facility] C Reactive 22.55 High < 8.[address] Protein mg/[place] [address] [phone] CBC Auto Diff 02/12/2019 [facility] White Blood 4.4 Normal 3.5 -10.[address] Count 10^3/[place] [address] [phone] Red Blood Count 4.65 10^6/uL Normal 4.18-5.48 Hemoglobin 12.0 g/dL Low 14.0-18.0 Hematocrit 37 % Low 42-52 Mean Corpuscular Volume 79 fL Low 80-94 Mean Corpuscular Hemoglobin 26 pg Low 27-31 Mean Corpuscular HGB Conc 33 g/dL Normal 31-36 Red Cell Distribution Width 17 % High 10-15 Platelet Count 269 10^3/uL Normal 150-450 Mean Platelet Volume 7.9 fL Normal 7.4-10.4 Abs Neutrophils 2.5 10^3/uL Normal 1.5-7.7 Abs Lymphocytes 1.0 10^3/uL Normal 1.0-4.8 Abs Monocytes 0.7 10^3/uL Normal 0-0.8 Abs Eosinophils 0.2 10^3/uL Normal 0-0.6 Abs Basophils 0.1 10^3/uL Normal 0-0.2 Abs Nucleated RBC 0.0 10^3/uL Granulocyte % 55.8 % Lymphocyte % 22.3 % Monocyte % 15.1 % Eosinophil % 5.6 % Basophil % 1.2 % Nucleated Red Blood Cells % 0.0 Comp Metabolic 02/12/2019 [facility] Sodium 136 mmol/L Normal 135-[address] [place] [address] [phone] Potassium 4.5 mmol/L Normal 3.5-5.0 Chloride 104 mmol/L Normal 101-111 Co2 Carbon Dioxide 26 mmol/L Normal 22-32 Anion Gap 6 mmol/L Normal 2-11 Glucose 151 mg/dL High 70-100 Blood Urea Nitrogen 17 mg/dL Normal 6-24 Creatinine 0.96 mg/dL Normal 0.67-1.17 BUN/Creatinine Ratio 17.7 Normal 8-20 Calcium 8.9 mg/dL Normal 8.6-10.3 Total Protein 6.9 g/dL Normal 6.4-8.9 Albumin 3.8 g/dL Normal 3.2-5.2 Globulin 3.1 g/dL Normal 2-4 Albumin/Globulin Ratio 1.2 Normal 1-3 Total Bilirubin 0.30 mg/dL Normal 0.2-1.0 Alkaline Phosphatase 116 U/L High 34-104 Alt 13 U/L Normal 7-52 Ast 17 U/L Normal 13-39 Egfr Non- 81.3 >60 Egfr 98.4 >60 4 Laboratory test 02/12/2019 [facility] Breast Carcinoma 524 U/mL High <=38.[address] Ag(Ca27.29) [place] [address] [phone] Laboratory test 01/18/2019 [facility] Troponin-I (TnI) 0.00 < 0.[address] ng/[place] [address] [phone] TSH (Thyroid Stim Horm) 3.59 mcIU/mL Normal 0.34-5.60 Blood Culture SEE RESULT BELOW 7 Comp Metabolic 01/18/2019 [facility] Sodium 136 mmol/L Normal 135-[address] [place] [address] [phone] Potassium 4.4 mmol/L Normal 3.5-5.0 Chloride 98 mmol/L Low 101-111 Co2 Carbon Dioxide 28 mmol/L Normal 22-32 Anion Gap 10 mmol/L Normal 2-11 Glucose 159 mg/dL High 70-100 Blood Urea Nitrogen 17 mg/dL Normal 6-24 Creatinine 1.12 mg/dL Normal 0.67-1.17 BUN/Creatinine Ratio 15.2 Normal 8-20 Calcium 9.4 mg/dL Normal 8.6-10.3 Total Protein 7.5 g/dL Normal 6.4-8.9 Albumin 4.0 g/dL Normal 3.2-5.2 Globulin 3.5 g/dL Normal 2-4 Albumin/Globulin Ratio 1.1 Normal 1-3 Total Bilirubin 0.40 mg/dL Normal 0.2-1.0 Alkaline Phosphatase 197 U/L High 34-104 Alt 19 U/L Normal 7-52 Ast 18 U/L Normal 13-39 Egfr Non- 68.3 >60 Egfr 82.7 >60 8 Laboratory 01/18/2019 [facility] Lactic 3.0 mmol/L Critical 0.5-2.0 9 test finding [address] [place] [address] [phone] B-Type Natriuretic Peptide BNP 28 pg/mL <=100 CBC Auto 01/18/2019 [facility] White Blood 7.8 10^3/uL Normal 3.5-10.[address] [place] [address] [phone] Red Blood Count 5.16 10^6/uL Normal 4.18-5.48 Hemoglobin 13.2 g/dL Low 14.0-18.0 Hematocrit 41 % Low 42-52 Mean Corpuscular Volume 79 fL Low 80-94 Mean Corpuscular Hemoglobin 26 pg Low 27-31 Mean Corpuscular HGB Conc 33 g/dL Normal 31-36 Red Cell Distribution Width 16 % High 10-15 Platelet Count 259 10^3/uL Normal 150-450 Mean Platelet Volume 8.2 fL Normal 7.4-10.4 Abs Neutrophils 5.7 10^3/uL Normal 1.5-7.7 Abs Lymphocytes 1.0 10^3/uL Normal 1.0-4.8 Abs Monocytes 0.7 10^3/uL Normal 0-0.8 Abs Eosinophils 0.3 10^3/uL Normal 0-0.6 Abs Basophils 0.1 10^3/uL Normal 0-0.2 Abs Nucleated RBC 0.0 10^3/uL Granulocyte % 73.9 % Lymphocyte % 12.5 % Monocyte % 8.4 % Eosinophil % 4.3 % Basophil % 0.9 % Nucleated Red Blood Cells % 0.0 Laboratory 01/18/2019 [facility] Partial 45.6 High 26.0-38.[address] [place] [address] Time PTT [phone] Inr/Protime 01/18/2019 [facility] Inr 1.77 High 0.82-1.[address] [place] [address] [phone] CBC Auto Diff 01/15/2019 [facility] White Blood 6.0 10^3/uL Normal 3.5-10.[address] [place] [address] [phone] Red Blood Count 4.83 10^6/uL Normal 4.18-5.48 Hemoglobin 12.6 g/dL Low 14.0-18.0 Hematocrit 38 % Low 42-52 Mean Corpuscular Volume 79 fL Low 80-94 Mean Corpuscular Hemoglobin 26 pg Low 27-31 Mean Corpuscular HGB Conc 33 g/dL Normal 31-36 Red Cell Distribution Width 16 % High 10-15 Platelet Count 220 10^3/uL Normal 150-450 Mean Platelet Volume 8.2 fL Normal 7.4-10.4 Abs Neutrophils 4.5 10^3/uL Normal 1.5-7.7 Abs Lymphocytes 0.8 10^3/uL Low 1.0-4.8 Abs Monocytes 0.4 10^3/uL Normal 0-0.8 Abs Eosinophils 0.2 10^3/uL Normal 0-0.6 Abs Basophils 0.0 10^3/uL Normal 0-0.2 Abs Nucleated RBC 0.0 10^3/uL Granulocyte % 74.5 % Lymphocyte % 13.5 % Monocyte % 7.4 % Eosinophil % 3.9 % Basophil % 0.7 % Nucleated Red Blood Cells % 0.0 Comp Metabolic 01/15/2019 [facility] Sodium 136 mmol/L Normal 135-[address] [place] [address] [phone] Potassium 4.4 mmol/L Normal 3.5-5.0 Chloride 104 mmol/L Normal 101-111 Co2 Carbon Dioxide 24 mmol/L Normal 22-32 Anion Gap 8 mmol/L Normal 2-11 Calcium 9.3 mg/dL Normal 8.6-10.3 Albumin 3.8 g/dL Normal 3.2-5.2 Total Bilirubin 0.40 mg/dL Normal 0.2-1.0 Glucose 177 mg/dL High 70-100 Blood Urea Nitrogen 17 mg/dL Normal 6-24 Creatinine 0.88 mg/dL Normal 0.67-1.17 BUN/Creatinine Ratio 19.3 Normal 8-20 Total Protein 6.9 g/dL Normal 6.4-8.9 Globulin 3.1 g/dL Normal 2-4 Albumin/Globulin Ratio 1.2 Normal 1-3 Alkaline Phosphatase 133 U/L High 34-104 Alt 15 U/L Normal 7-52 Ast 17 U/L Normal 13-39 Egfr Non- 90.2 >60 Egfr 109.2 >60 11 Laboratory 01/15/2019 [facility] Breast 572 U/mL High <=38.0 12 test finding [address] [place] [address] Ag(Ca27.29) [phone] Laboratory 01/14/2019 [facility] Point of Care 118 mg/dL High 70-100 13 test finding [address] [place] [address] [phone] Laboratory 01/14/2019 [facility] Point of Care 130 mg/dL High 70-100 14 test finding [address] [place] [address] [phone] Laboratory 01/01/2019 [facility] Partial 31.8 Normal 26.0- 38.0 test finding [address] [place] [place] [address] PTT [phone] Lactic Acid 2.2 mmol/L Critical high 0.5-2.0 15 Inr/Protime 01/01/2019 [facility] Inr 0.95 Normal 0.82-1.[address] [place] [address] [phone] Laboratory test 01/01/2019 [facility] Magnesium 1.9 mg/dL Normal 1.9-2.[address] [place] [address] [phone] Troponin-I (TnI) 0.00 ng/mL <0.04 17 B-Type Natriuretic Peptide BNP 19 pg/mL <=100 Comp Metabolic 01/01/2019 [facility] Sodium 136 mmol/L Normal 135-[address] [place] [address] [phone] Potassium 4.0 mmol/L Normal 3.5-5.0 Chloride 102 mmol/L Normal 101-111 Co2 Carbon Dioxide 26 mmol/L Normal 22-32 Anion Gap 8 mmol/L Normal 2-11 Glucose 121 mg/dL High 70-100 Blood Urea Nitrogen 15 mg/dL Normal 6-24 Creatinine 0.86 mg/dL Normal 0.67-1.17 BUN/Creatinine Ratio 17.4 Normal 8-20 Calcium 9.4 mg/dL Normal 8.6-10.3 Total Protein 7.3 g/dL Normal 6.4-8.9 Albumin 3.9 g/dL Normal 3.2-5.2 Globulin 3.4 g/dL Normal 2-4 Albumin/Globulin Ratio 1.1 Normal 1-3 Total Bilirubin 0.30 mg/dL Normal 0.2-1.0 Alkaline Phosphatase 153 U/L High 34-104 Alt 14 U/L Normal 7-52 Ast 16 U/L Normal 13-39 Egfr Non- 92.7 >60 Egfr 112.1 >60 18 CBC Auto 01/01/2019 [facility] White Blood 6.3 10^3/uL Normal 3.5-10.[address] [place] [address] [phone] Red Blood Count 4.82 10^6/uL Normal 4.18-5.48 Hemoglobin 12.5 g/dL Low 14.0-18.0 Hematocrit 38 % Low 42-52 Mean Corpuscular Volume 78 fL Low 80-94 Mean Corpuscular Hemoglobin 26 pg Low 27-31 Mean Corpuscular HGB Conc 33 g/dL Normal 31-36 Red Cell Distribution Width 16 % High 10-15 Platelet Count 257 10^3/uL Normal 150-450 Mean Platelet Volume 8.3 fL Normal 7.4-10.4 Abs Neutrophils 3.8 10^3/uL Normal 1.5-7.7 Abs Lymphocytes 1.8 10^3/uL Normal 1.0-4.8 Abs Monocytes 0.5 10^3/uL Normal 0-0.8 Abs Eosinophils 0.1 10^3/uL Normal 0-0.6 Abs Basophils 0.0 10^3/uL Normal 0-0.2 Abs Nucleated RBC 0.0 10^3/uL Granulocyte % 60.6 % Lymphocyte % 28.8 % Monocyte % 7.6 % Eosinophil % 2.4 % Basophil % 0.6 % Nucleated Red Blood Cells % 0.0 Laboratory test 12/31/2018 [facility] Miscellaneous Test (SEE NOTE) [address] [place] [address] [phone] Body Fluid Total 12/31/2018 [facility] Total Protein, BF 4.7 g/ dL [address] [place] [address] [phone] Fluid Source pleural 21 Laboratory test 12/31/2018 [facility] Cytology SEE RESULT [address] [place] [address] [phone] Lactate 12/31/2018 [facility] Lactate 206 U/L 23 Dehydrogenase,BF [address] Dehydrogenase, [place] [address] BF [phone] Fluid Source pleural 24 Body Fluid Cell 12/31/2018 [facility] Body Fluid Pleural Fluid Count [address] [place] [address] [phone] Body Fluid Appearance Cloudy Body Fluid Color Muna Body Fluid Volume 8 mL Body Fluid WBC 3827 /mcL Normal 25 Body Fluid RBC 5810 /mcL Body Fluid Neutrophils 2 % Body Fluid Lymph 92 % Body Fluid [place] 6 % Body Fluid Other Cells 10 Body Fluid Total Cells Counted 100 Fluid Reviewed By MD (SEE NOTE) 26 Laboratory test 12/31/2018 [facility] Gram Stain SEE RESULT [address] [place] [address] [phone] Body Fluid C&S 12/31/2018 [facility] Body Fluid SEE RESULT [address] [place] [address] Stain [phone] Body Fluid Culture (Bottles) SEE RESULT BELOW 29 BUN/Creat/GFR 12/04/2018 [facility] Poc Blood Urea 11 mg/dL Normal 8-[address] Nitrogen [place], [place] [address] [phone] Poc Creatinine 0.8 mg/dL Normal 0.6-1.3 30 Poc BUN/Creatinine Ratio 13.8 Normal 8-20 Egfr Non- 100.7 >60 Egfr 121.9 >60 31 Laboratory test 11/12/2018 [facility] Ferritin 37.2 ng/mL Normal 24-336 [address] [place], [place] [address] [phone] Iron & Iron 11/12/2018 [facility] Iron 57 g/dL Normal 50- 212 Binding Capacity [address] [place] [address] [phone] Unsaturated Iron Binding < 388 g/dL Total Iron Binding Capacity 403 g/dL Normal 250-450 Transferrin 288 mg/dL Normal 203-362 % Iron Saturation 14 % Low 15-55 Laboratory test 11/12/2018 [facility] TSH (Thyroid 2.74 Normal 0.34-5.60 33 finding 101 ED [facility] Stim Horm) mcIU/[place] [address] [phone] Urine 11/12/2018 [facility] Ur < 15.0 Microalbumin 101 ED [facility] Microalbumin mg/[place] [address] (mg/L) [phone] Urine Creatinine 446.17 mg/dL Urine Microalbumin/Creatinine TNP <31 34 Lipid Profile 11/12/2018 [facility] Triglycerides 183 mg/dL 35 (Trig/Chol/HDL) [address] [place] [address] [phone] Cholesterol 148 mg/dL 36 HDL Cholesterol 40.8 mg/dL 37 LDL Cholesterol 71 mg/dL 38 Laboratory test 11/12/2018 [facility] Vitamin B12 389 pg/mL Normal 180-914 39 finding 101 [place] [address] [phone] Creatine Kinase(CK) 127 U/L Normal 10-223 40 Hepatitis C Rna Quant Undetected IU/mL Undetected 41 Laboratory test finding 10/06/2018 [facility] In House Hemoglobin A1c 5.8 5-7 1 Because ethnic data is not always readily available, this report includes an eGFR for both -Americans and non- Americans. The National Kidney Disease Education Program (NKDEP) does not endorse the use of the MDRD equation for patients that are not between the ages of 18 and 70, are , have extremes of body size, muscle mass, or nutritional status, or are non- or non-. According to the National Kidney Foundation, irrespective of diagnosis, the stage of the disease is based on the level of kidney function: Stage Description GFR(mL/min/1.73 m(2)) 1 Kidney damage with normal or decreased GFR 90 2 Kidney damage with mild decrease in GFR 60-89 3 Moderate decrease in GFR 30-59 4 Severe decrease in GFR 15-29 5 Kidney failure <15 (or dialysis) 2 Use not defined for males. ADDITIONAL INFORMATION The testing method is a chemiluminometric immunoassay manufactured by [employer] and performed on the [employer]'s [employer] DashThisaur. Values obtained with different assay methods or kits may be different and cannot be used interchangeably. Test results cannot be interpreted as absolute evidence for the presence or absence of malignant disease. Test Performed by: [address] [address] 3 Because ethnic data is not always readily available, this report includes an eGFR for both -Americans and non- Americans. The National Kidney Disease Education Program (NKDEP) does not endorse the use of the MDRD equation for patients that are not between the ages of 18 and 70, are , have extremes of body size, muscle mass, or nutritional status, or are non- or non-. According to the National Kidney Foundation, irrespective of diagnosis, the stage of the disease is based on the level of kidney function: Stage Description GFR(mL/min/1.73 m(2)) 1 Kidney damage with normal or decreased GFR 90 2 Kidney damage with mild decrease in GFR 60-89 3 Moderate decrease in GFR 30-59 4 Severe decrease in GFR 15-29 5 Kidney failure <15 (or dialysis) 4 Because ethnic data is not always readily available, this report includes an eGFR for both -Americans and non- Americans. The National Kidney Disease Education Program (NKDEP) does not endorse the use of the MDRD equation for patients that are not between the ages of 18 and 70, are , have extremes of body size, muscle mass, or nutritional status, or are non- or non-. According to the National Kidney Foundation, irrespective of diagnosis, the stage of the disease is based on the level of kidney function: Stage Description GFR(mL/min/1.73 m(2)) 1 Kidney damage with normal or decreased GFR 90 2 Kidney damage with mild decrease in GFR 60-89 3 Moderate decrease in GFR 30-59 4 Severe decrease in GFR 15-29 5 Kidney failure <15 (or dialysis) 5 Use not defined for males. ADDITIONAL INFORMATION The testing method is a chemiluminometric immunoassay manufactured by Siem[employer] and performed on the [employer]'s [employer] DashThisaur. Values obtained with different assay methods or kits may be different and cannot be used interchangeably. Test results cannot be interpreted as absolute evidence for the presence or absence of malignant disease. Test Performed by: [address] [address] 6 Troponin-I testing on Plasma Separator Tubes (PST) has a known false positive rate of 0.20-0.40%. All positive troponins reflex immediately to secondary confirmatory testing. Using the [employer] DxI 800 Access Immunoassay systems, the 99th percentile upper reference limit was demonstrated to be < 0.03 ng/mL. 7 SEE RESULT BELOW Name: AIDEE ROBLES : [address]: Sheng Queen MD Acct: [id number] Unit: [id number] AGE: 53 Location: [address] Re01/18/19 Dis: 01/20/19 SEX: M Status: DIS Gordon SPEC: [id number] KATHERYN: 01/18/[address] [facility] [address]: Raman Lobo MD REQ: [id number] RECD: 01/18/19 STATUS: YAIR REDDY DR: Anaya Robles MD _ SOURCE: BLOOD,[facility]: ORDERED: Blood Cult COMMENTS: R AC Procedure Result Reported Site Aerobic Culture Bottle Final 01/23/192002 ML No Growth Day 5 Anaerobic Culture Bottle Final 01/23/192002 ML No Growth Day 5 * ML - Main Lab . END OF REPORT DEPARTMENT OF PATHOLOGY, [address] [place] [address] Jh Vizcaino M.D. Director [facility] # [id number] 8 Because ethnic data is not always readily available, this report includes an eGFR for both -Americans and non- Americans. The National Kidney Disease Education Program (NKDEP) does not endorse the use of the MDRD equation for patients that are not between the ages of 18 and 70, are , have extremes of body size, muscle mass, or nutritional status, or are non- or non-. According to the National Kidney Foundation, irrespective of diagnosis, the stage of the disease is based on the level of kidney function: Stage Description GFR(mL/min/1.73 m(2)) 1 Kidney damage with normal or decreased GFR 90 2 Kidney damage with mild decrease in GFR 60-89 3 Moderate decrease in GFR 30-59 4 Severe decrease in GFR 15-29 5 Kidney failure <15 (or dialysis) 9 Critical Result LACT:3.0 Called to [id number] at: 20:26:23 by:[id number] Read back by:[id number] [facility] Severe Sepsis and Septic Shock Management Bundle Measure requires all lactic acids initially measuring >2.0 mmol/L be repeated. 10 Standard intensity warfarin therapeutic range: 2.0-3.0 High intensity warfarin therapeutic range: 2.5-3.5 11 Because ethnic data is not always readily available, this report includes an eGFR for both -Americans and non- Americans. The National Kidney Disease Education Program (NKDEP) does not endorse the use of the MDRD equation for patients that are not between the ages of 18 and 70, are , have extremes of body size, muscle mass, or nutritional status, or are non- or non-. According to the National Kidney Foundation, irrespective of diagnosis, the stage of the disease is based on the level of kidney function: Stage Description GFR(mL/min/1.73 m(2)) 1 Kidney damage with normal or decreased GFR 90 2 Kidney damage with mild decrease in GFR 60-89 3 Moderate decrease in GFR 30-59 4 Severe decrease in GFR 15-29 5 Kidney failure <15 (or dialysis) 12 Use not defined for males. ADDITIONAL INFORMATION The testing method is a chemiluminometric immunoassay manufactured by Siemens and performed on the [employer]'s [employer]ia DashThisaur. Values obtained with different assay methods or kits may be different and cannot be used interchangeably. Test results cannot be interpreted as absolute evidence for the presence or absence of malignant disease. Test Performed by: [address] [address] 13 Bi Specialist: [id number] Bi Specialist: [id number] Critical Result LACT:2.2 Called to [id number] at: 17:50:23 by:[id number] Read back by:[id number] [facility] Severe Sepsis and Septic Shock Management Bundle Measure requires all lactic acids initially measuring >2.0 mmol/L be repeated. 16 Standard intensity warfarin therapeutic range: 2.0-3.0 High intensity warfarin therapeutic range: 2.5-3.5 17 Troponin-I testing on Plasma Separator Tubes (PST) has a known false positive rate of 0.20-0.40%. All positive troponins reflex immediately to secondary confirmatory testing. Using the [employer]ualSunI 800 Access Immunoassay systems, the 99th percentile upper reference limit was demonstrated to be < 0.03 ng/mL. 18 Because ethnic data is not always readily available, this report includes an eGFR for both -Americans and non- Americans. The National Kidney Disease Education Program (NKDEP) does not endorse the use of the MDRD equation for patients that are not between the ages of 18 and 70, are , have extremes of body size, muscle mass, or nutritional status, or are non- or non-. According to the National Kidney Foundation, irrespective of diagnosis, the stage of the disease is based on the level of kidney function: Stage Description GFR(mL/min/1.73 m(2)) 1 Kidney damage with normal or decreased GFR 90 2 Kidney damage with mild decrease in GFR 60-89 3 Moderate decrease in GFR 30-59 4 Severe decrease in GFR 15-29 5 Kidney failure <15 (or dialysis) 19 pH Body Fluid: 7.3 Ref Range Not Established Disclaimer: This test was developed and its performance characteristics determined by [facility]. It has not been cleared or approved by the Food and Drug Administration. Test Performed: [facility] [address] [id number] Dir: Lois Correa MD 20 REFERENCE VALUE Not Applicable ADDITIONAL INFORMATION This test has been modified from the director franchise sales's instructions. Its performance characteristics were determined by [facility] in a manner consistent with CLIA requirements. This test has not been cleared or approved by the U.S. Food and Drug Administration. 21 Test Performed by: [address] [address] 22 SEE RESULT BELOW Name: AIDEE ROBLES : [address]: Kelli Melchor MD Acct: [id number] Unit: [id number] AGE: 53 Location: OR Re12/31/18 SEX: M Status: REG [place] SPEC: [id number] KATHERYN: 12/31/18-[address] [facility] [address]: Kelli Melchor MD REQ: [id number] RECD: 12/31/18-1250 STATUS: DYLLAN REDDY DR: Sheng Bee MD _ ORDERED: LEVEL 4, NG THIN LAYER, IMMUNO-FIRST, IMMUNO-ADDL/2, IMMUNO-QUANT/3 ADDENDUM Addendum: The following histochemical stains are performed with appropriate controls on formalin fixed cell block material. ER strong positive in 90% of tumor HER-2 negative (1+) These findings support the diagnosis of metastatic carcinoma of breast origin. Addendum Signed (signature on file) Jh Vizcaino MD 1252 Addendum: The following immunohistochemical stains are performed with appropriate controls on formalin fixed cell block material ER pending ME positive, 2???3 plus, 20% of tumor TTF-1 negative NapsinA negative CK7 positive HER-2 pending The findings support a diagnosis of metastatic adenocarcinoma of breast origin and are compatible with the patient's known history. Immunohistochemical stains for ER and HER-2 are pending and will be reported in a separate addendum. Addendum Signed (signature on file) Jh Vizcaino MD 1544 FINAL DIAGNOSIS CONTINUED ON NEXT PAGE DEPARTMENT OF PATHOLOGY, [address] [place] [address] Jh Vizcaino M.D. Director [facility] # [id number] RUN DATE: 01/06/19 [facility] LAB LIVE PAGE 2 Patient: AIDEE ROBLES [id number] (Continued) FINAL DIAGNOSIS (Continued) Pleural fluid, left: -- Malignant. -- Metastatic adenocarcinoma. See comment. Comment: The patient's history of breast carcinoma is noted. Immunohistochemical staining panel is pending to further characterize this metastatic adenocarcinoma of the pleural fluid. Findings will be reported in an addendum. A cell block was prepared in the evaluation of this specimen. Smears and cell block reveal similar findings. 1. PLEURAL - PLEURAL FLUID CLINICAL HISTORY Pleural effusion. Breast cancer. GROSS DESCRIPTION 800 ml of cloudy orangish colored fluid. Signed by and Reported on: Jh Vizcaino MD 1305 END OF REPORT DEPARTMENT OF PATHOLOGY, [address] [place] [address] Jh Vizcaino M.D. Director [facility] # [id number] 23 REFERENCE VALUE Not Applicable 24 Test Performed by: [facility] - [address] [address] 25 -- REFERENCE VALUE -- Synovial: <150/mcL Peritoneal: <500/mcL Pleural: <500/mcL Pericardial: <500/mcL 26 Epithelial elements suspicious for adenocarcinoma identified. Chronic inflammatory elements identified. Correlation with serologic studies is recommended. Reviewed by Dr. Vizcaino 27 SEE RESULT BELOW Name: AIDEE ROBLES : [address]: Kelli Melchor MD Acct: [id number] Unit: [id number] AGE: 53 Location: OR Re12/31/18 SEX: M Status: REG SDC SPEC: [id number] KATHERYN: 12/31/[address] [facility] [address]: Kelli Melchor MD REQ: [id number] RECD: 12/31/18 STATUS: COMP OTHR DR: Anaya Robles MD _ SOURCE: BODY FLUID SPDESC:PLEURA ORDERED: Gram Stain Procedure Result Reported Site Gram Stain Final 12/31/18- 3188 ML 4+ Nucleated Cells 1+ Neutrophils No Organisms Seen * ML - Main Lab . END OF REPORT DEPARTMENT OF PATHOLOGY, [address] [place] [address] Jh Vizcaino M.D. Director [facility] # [id number] 28 SEE RESULT BELOW Name: AIDEE ROBLES : [address]: Kelli Melchor MD Acct: [id number] Unit: [id number] AGE: 53 Location: OR Re12/31/18 SEX: M Status: REG SDC SPEC: [id number] KATHERYN: 12/31/18-[address] [facility] [address]: Kelli Melchor MD REQ: [id number] RECD: 12/31/18 STATUS: RES OTHR DR: Anaya Robles MD _ SOURCE: PLEURAL FL SPDESC: ORDERED: BF Gato/GS Procedure Result Reported Site Body Fluid Gram Stain Final 12/31/18- 1328 ML 4+ Nucleated Cells 1+ Neutrophils No Organisms Seen Preparation By Cytospin Smear Body Fluid Culture PENDING * ML - Main Lab . END OF REPORT DEPARTMENT OF PATHOLOGY, [address] [place] [address] Jh Vizcaino M.D. Director [facility] # [id number] 29 SEE RESULT BELOW Name: AIDEE ROBLES : [address]: Kelli Melchor MD Acct: [id number] Unit: [id number] AGE: 53 Location: OR Re12/31/18 SEX: M Status: JONAS SDC SPEC: [id number] KATHERYN: 12/31/18-[address] [facility] [address]: Kelli Melchor MD REQ: [id number] RECD: 12/31/18 STATUS: YAIR REDDY DR: Anaya Robles MD _ SOURCE: PLEURAL FL SPDESC: ORDERED: BF Cult Bottles Procedure Result Reported Site BF Aerobic Culture Bottle Final 01/05/19- 1250 ML No Growth Day 5 BF Anaerobic Culture Bottle Final 01/05/19- 1250 ML No Growth Day 5 * ML - Main Lab . END OF REPORT DEPARTMENT OF PATHOLOGY, [address] [place] [address] Jh Vizcaino M.D. Director [facility] # [id number] 30 Bi Specialist: [id number] 31 Because ethnic data is not always readily available, this report includes an eGFR for both -Americans and non- Americans. The National Kidney Disease Education Program (NKDEP) does not endorse the use of the MDRD equation for patients that are not between the ages of 18 and 70, are , have extremes of body size, muscle mass, or nutritional status, or are non- or non-. According to the National Kidney Foundation, irrespective of diagnosis, the stage of the disease is based on the level of kidney function: Stage Description GFR(mL/min/1.73 m(2)) 1 Kidney damage with normal or decreased GFR 90 2 Kidney damage with mild decrease in GFR 60-89 3 Moderate decrease in GFR 30-59 4 Severe decrease in GFR 15-29 5 Kidney failure <15 (or dialysis) 32 FASTING 10 HOUR 33 FASTING 10 HOUR 34 Unable to calculate due to low microalbumin 35 Desirable: <150 Borderline High: 150-199 High: 200-499 Very High: >500 36 Desirable: <200 Borderline High: 200-239 High: >239 37 Low: <40 Desirable: 40-60 High: >60 38 Desirable: <100 Near Optimal: 100-129 Borderline High: 130-159 High: 160-189 Very High: >189 39 Normal Range 180 to 914 Indeterminate Range 145 to 180 Deficient Range <145 40 FASTING 10 HOUR 41 Result in log IU/mL is Undetected. ADDITIONAL INFORMATION The quantification range of this assay is 15 to 100,000,000 IU/mL (1.18 log to 8.00 log IU/mL). Testing was performed using the jena HCV test ([employer] with the jena Rainforest0 System. Test Performed by: [facility] [address] [place] [address] Procedures Date Code Description Status 02/03/2019 84608 Polysomnography Sleep Staging 4+ Parameters Completed 01/14/2019 63383 Insertion Of Indwelling Tunneled Pleural Catheter Completed W/Cuff 12/31/2018 26174 Thoracentesis W/ Img Guidance Completed 12/12/2018 075340517 Bone Mineral Density Test Completed 12/11/2018 25872 ECHO Transthorasic Realtime 2D W Doppler & Color Flow Completed Hosp 10/14/2018 08834 EKG Tracing & Interpretation Completed 03/19/2017 394457411 Diabetic Retinal Eye Exam Completed 11/23/2014 737931340 Diabetic Retinal Eye Exam Completed 01/09/2013 841620519 Diabetic Retinal Eye Exam Completed 10/02/2012 66899154 Colonoscopy Completed 08/11/2012 15866781 Mammogram Completed Medical Devices Description No Information Available Encounters Type Date Location Provider Dx Diagnosis Office Visit 02/09/2019 Clin Application Specialist Internal Anaya Miriam, E11.9 Type 2 diabetes 1:40p Medicine - Ermias DicksonDAyush mellitus without complications K59.03 Drug induced constipation J91.0 Malignant pleural effusion B35.3 Tinea pedis Office Visit 01/18/2019 10:34a [facility] Malinda Long, R53.1 Weakness Assoc,pc Hospitalists DO R53.83 Other fatigue I95.9 Hypotension, unspecified Office Visit 01/08/2019 11:15a Surgical Aftab Lagunas C34.92 [facility] MD Rachel, neoplasm of unsp 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 I10 Essential Raisa Simpson (primary) hypertension I25.10 Athscl heart disease of [place] coronary artery w/o ang pctrs E78.5 Hyperlipidemia, unspecified I25.2 Old myocardial infarction R94.31 Abnormal electrocardiogram [ECG] [EKG] Office 10/06/2018 Romi [facility] Internal Anaya E11.9 Type 2 diabetes Visit 10:30[facility] mellitus without complications D64.9 Anemia, unspecified E78.2 Mixed hyperlipidemia R20.2 Paresthesia of skin M51.26 Other intervertebral disc displacement, lumbar region M79.18 Myalgia, other site Z11.59 Encounter for screening for other viral diseases Assessments Date Code Description Provider 03/30/2019 M25.562 Pain in left knee Manny Solano MD 02/09/2019 E11.9 Type 2 diabetes mellitus without Anaya Robles M.D. complications 02/09/2019 K59.03 Drug induced constipation Anaya Robles M.D. 02/09/2019 J91.0 Malignant pleural effusion Anaya Robles M.D. 02/09/2019 B35.3 Tinea pedis Anaya Robles M.D. 02/03/2019 G47.33 Obstructive sleep apnea (adult) Kelli Melchor MD (pediatric) 01/18/2019 R53.1 Weakness Malinda Long, DO 01/18/2019 R53.83 Other fatigue Malinda Long, DO 01/18/2019 I95.9 Hypotension, unspecified Malinda Ethan, DO 01/14/2019 C34.92 Malignant neoplasm of unspecified part Aftab Ramos MD , FACS of left bronchus or l 01/14/2019 J91.0 Malignant pleural effusion Aftab Ramos MD, FACS 01/08/2019 C34.92 Malignant neoplasm of unspecified part Aftab Ramos MD , FACS of left bronchus or l 01/05/2019 J91.0 Malignant pleural effusion Kelli Melchor MD 01/05/2019 R06.83 Snoring Kelli Melchor MD 01/05/2019 R53.83 Other fatigue Kelli Melchor MD 12/31/2018 J90 Pleural effusion, not elsewhere Kelli Melchor MD classified 12/29/2018 J90 Pleural effusion, not elsewhere Kelli Melchor MD classified 12/29/2018 R06.83 Snoring Kelli Melchor MD 12/29/2018 J45.909 Unspecified asthma, uncomplicated Kelli Melchor MD 12/11/2018 R07.9 Chest pain, unspecified Itzel Simpson M.D. 10/14/2018 I10 Essential (primary) hypertension Itzel Simpson M.D. 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 10/14/2018 I25.2 Old myocardial infarction Itzel Simpson M.D. 10/14/2018 R94.31 Abnormal electrocardiogram [ECG] [EKG] Itzel Simpson M.D. 10/06/2018 E11.9 Type 2 diabetes mellitus without Aanya Robles M.D. complications 10/06/2018 D64.9 Anemia, unspecified Anaya Robles M.D. 10/06/2018 E78.2 Mixed hyperlipidemia Anaya Robles M.D. 10/06/2018 R20.2 Paresthesia of skin Anaya Robles M.D. 10/06/2018 M51.26 Other intervertebral disc Anaya Robles M.D. displacement, lumbar region 10/06/2018 M79.18 Myalgia, other site Anaya Robles M.D. 10/06/2018 Z11.59 Encounter for screening for other Anaya Robles M.D. viral diseases Plan of Treatment Future Appointment(s):04/20/2019 2:15 pm - Manny Solano MD at [facility]03/30/2019 - Manny Solano, MDM25.562 Pain in left kneeNew Xrays:Femur Left, Ordered: 03/30/19Knee 3 Views LT, Ordered: New Therapy:Physical TherapyFollow up:Follow up: 3 weeks Functional Status Description No Information Available Mental Status Description No Information Available Referrals Refer to Reason for Referral Status Appt Date Aftab Ramos MD Scheduled 01/08/2019 [address] [facility] [address] [phone]
--- OUTSIDE RECORDS SUMMARY | 2019-05-26 08:28 | XMS REPORT | Continuity of Care Document ---
:1965 External Reference #:[id number] Author Name Atiya Tavarez O.D. Address [address] [place] [address] Care Team Providers Name Role Phone Anaya Pineda M.D. 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 Onset: 04/17/2019 Chorioretinal tumor Atiya Tavarez O.D. Onset: 04/17/2019 Social History Type Date Description Comments Sex Unknown ETOH Use Denies alcohol use Tobacco Use Start: Unknown End: Patient is a former smoker quite 1992 Unknown Recreational Drug Use Denies Drug Use Smoking Status Reviewed: 04/17/19 Patient is a former smoker quite 1992 Allergies, Adverse Reactions, Alerts Description No Known Drug Allergies Medications Active Medications SIG Qnty Indications Ordering Provider Date Zolpidem Tartrate Take 1 Tablet By Unknown 10mg Mouth Everyday AT Tablets Bedtime Glimepiride Pineda Anaya 4mg Tablets M.D. Clotrimazole VanevalerieLucio 1% Cream P. DPM Nitrostat Tatiana, 0.4mg Tablets Qutaybeh M.D. Sub Omeprazole Pineda Anaya 20mg Capsules M.D. 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 Plan of Treatment Future Appointment(s):04/29/2019 3:00 pm - Mamadou Tang M.D. at [facility] Bland MD, 04/17/2019 - Atiya Tavarez O.D.D49.81 Neoplasm of unspecified behavior of retina and choroidFollow up:refer to [facility] guillermo 3 mos [id number] Age-related nuclear cataract, bilateralComments:You have been diagnosed with cataracts. If you are happy with your vision as it is now, then we willsee you at your next scheduled appointment. If you feel like your vision is getting worse before your scheduled appointment, please call [place] at [phone]. Functional Status Description No Information Available Mental Status Description No Information Available Referrals Description No Information Available
--- NOTE | 2019-05-28 06:35 | ED ---
Imaging and Labs Follow Up Follow Up Type: Labs/Cultures Labs/Culture Result: Body fluid culture final Gram-positive bacilli Patient Communication/Plan: Patient was sent here by TRISHA Winn aware of positive fluid culture from [facility] Pt came to ED, however left AMA to go to [facility] in private car as pt stated he could not afford the transfer Patient Communication/Plan: As pt and MD are aware of positive cultures and pt was on way to [facility], nothing further required for follow up Provider Diagnoses: Infected venous access port
== END 2019-05-25 17:47 | disposition left against medical advice (07) ==
LOC: ED 16:08
DX: T80.219A Unspecified infection due to central venous catheter, initial encounter (principal); C50.922 Malignant neoplasm of unspecified site of left male breast; C79.51 Secondary malignant neoplasm of bone; E11.9 Type 2 diabetes mellitus without complications; Z79.84 Long term (current) use of oral hypoglycemic drugs; I10 Essential (primary) hypertension; Z86.718 Personal history of other venous thrombosis and embolism; Z86.711 Personal history of pulmonary embolism; Z79.01 Long term (current) use of anticoagulants; J45.901 Unspecified asthma with (acute) exacerbation; K21.9 Gastro-esophageal reflux disease without esophagitis; Z95.5 Presence of coronary angioplasty implant and graft; Z87.891 Personal history of nicotine dependence
CPT/HCPCS: 99281